=== PATIENT | female | born 1990 | race African-American/Black ===

== ENCOUNTER 2020-04-27 05:14 | Inpatient (IN) | payer BC, MEDICAID, SELFPAY ==
[2020-04-27] VITALS (18 sets, daily range): BP systolic 104–137; BP diastolic 43–111; PULSE 69–155; RESP 13–16; TEMP 36.3–36.8; O2SAT 100; BMI 28.5
--- NOTE | 2020-04-27 05:14 | LDADM ---
This patient, Mauricio Killian, was admitted to Labor/Delivery/Recovery 107 on 04/27/20 at 05:14. Plans for labor, pain management and were discussed with patient. Patient/family oriented to hospital policies and general routines including ID bracelet, bed and alarms, visiting hours, pain management, procedures, bathroom and other care routines, personal items, smoking policy, room service/diet and guest tray routines, infant security routines, and visiting hours. Patient/Family are encouraged to report perceived risks to care and to ask questions if they do not understand what they are told or what they should do. See OBIX for further documentation.
[2020-04-27] MEDS: LACTATED RINGERS 1,000 ML 125 ML IV CONT (05:46)
[2020-04-27 05:53] LABS: Basophils Percent Auto 0.3 % (0.2-1.2); Eosinophils Absolute Auto 0.1 K/mm3 (0-0.3); Eosinophils Percent Auto 0.9 % (0-4.4); Hematocrit 29.1 % (37.0-47.0); Immature Granulocyte Absolute 0.02 K/mm3 (0.00-0.031); Immature Granulocyte Percent A 0.3 % (0-0.5); Immature Platelet Fraction Pct 5.6 % (0.9-11.2); Lymphocytes Absolute Auto 1.34 K/mm3 (0.9-3.2); Lymphocytes Percent Auto 23.4 % (18.3-44.2); Mean Corpuscular HGB Conc 27.5 g/dl (32-36); Mean Corpuscular Hemoglobin 19.3 pg (26-34); Mean Corpuscular Volume 70.1 fl (80-100); Monocytes Absolute Auto 0.6 K/mm3 (0.1-0.6); Monocytes Percent Auto 11.2 % (2.6-8.5); Neutrophils Absolute Auto 3.7 K/mm3 (1.3-6.7); Neutrophils Percent Auto 63.9 % (45.5-73.1); Nucleated Red Blood Cells Absolute Auto 0.1 K/mm3 (0.0-0.012); Nucleated Red Blood Cells Perc 0.9 % (0.0-0.2); Platelet Count Result 212 k/mm3 (150-375); Red Blood Count 4.15 M/mm3 (4.2-5.4); Red Cell Distribution Width 20.6 % (11.5-14.5); White Blood Count 5.7 K/mm3 (4.5-10.0)
[2020-04-27 06:04] LABS: Hypochromasia 1+ (NORMAL); Platelet Estimate Adequate (Adequate)
[2020-04-27] MEDS: OXYTOCIN 30 UNITS/NS 500 ML 30 UNITS/500 ML BAG 999 UNITS IV CONT (06:38)
[2020-04-27 06:56] LABS: HIV 1/2 Ab P24 Ag Result Negative (Negative)
--- NOTE | 2020-04-27 06:56 | PM.IMHP ---
H&P: HPI History of Present Illness Chief complaint: Contractions Narrative: Mauricio Killian is a 29 yo @ 39.5 who presented with pelvic pain and pressure and was found to be 8cm dilated. She reported movement, no bleeding or leakage of fluid. complicated by: - h/o delivery x2 - h/o pre-eclampsia - h/o varicosities - limited care (two visits w/ Dr. Munoz) - Anemia Review of Systems Constitutional: Constitutional: Denies body ache(s) and Denies chills Eyes: Eyes: Denies blurry vision Cardiovascular: Cardiovascular: Denies chest pain and Denies palpitations Respiratory: Respiratory: Denies cough and Denies dyspnea Gastrointestinal: Gastrointestinal: Denies nausea and Denies vomiting Genitourinary: Genitourinary: Reports pelvic pain Musculoskeletal: Musculoskeletal: Reports back pain Neurologic: Denies headache(s) Psychiatric: Psychiatric: Denies anxiety [facility] Family History Family History Other Unknown family medical history Social History Social History Substance use: never Spiritual care concerns: No Meds Home Medications and Allergies Home Medications Medication Instructions Recorded Confirmed Type PNV cmb#95-ferrous fumarate-FA 1 tablet PO DAILY 04/26/20 04/26/20 History [] Allergies Allergy/AdvReac Type Severity Reaction Status Date / Time No Known Allergies Allergy Verified 04/26/20 14:37 Vital Signs Vital Signs - 24 hr 04/27/20 05:49 04/27/20 06:01 04/27/20 06:17 Pulse Rate 107 H 99 93 Blood Pressure 120/76 126/87 107/60 04/27/20 06:31 04/27/20 06:46 Pulse Rate 117 H 110 H Blood Pressure 122/73 121/50 L Exam Const: General: in distress (with contractions) moderate Resp: Effort & Inspection: normal respiratory effort Cardio: Rate: regular rate : Other: Cervix: 8/C/-1 on admission FHT: 150's/ mod jean-paul/ + accels/ no decels - cat 1 [place]: ctx's q 2-3min membranes: AROM, clear @ 0611 Skin: General skin exam: normal color Extrem: General: normal to inspection Psych: Mental Status: mental status grossly normal H&P: Results Labs Labs: Short CBC 04/27/20 Range/Units 05:42 WBC 5.7 (4.5-10.0) K/mm3 Hgb 8.0 L (12.0-15.0) g/dL Hct 29.1 L (37.0-47.0) % Plt Count 212 (150-375) k/mm3 Assessment and Plan Assessment and plan (1) : Qualifiers: Weeks of gestation: 39 weeks Qualified Code(s): Z3A.39 - 39 weeks gestation of Code(s): Z34.90 - Encounter for supervision of normal , unspecified, unspecified trimester Status: Acute Additional Plan - Admit to labor and delivery - GBS negative - heart rate tracing category 1 and reassuring - AROM, clear @ 0611 - Anticipate vaginal delivery
--- NOTE | 2020-04-27 07:06 | PM.OBPRVD ---
OB - Delivery Note Procedure Delivery date: 04/27/20 Procedure: Patient presented to Labor and delivery in active labor and was found to be 8 centimeters. amniotomy was performed with clear fluid noted and with good maternal pushing effort the cervical lip was easily reduced. she delivered the head over intact perineum. the shoulders and body delivered easily without complications. the was immediately placed skin to skin. the nose and mouth were bulb suctioned and the had spontaneous cry. the umbilical cord was clamped and cut. a segment of cord was collected for gases and the remaining cord blood was collected for typing. with Pitocin running and gentle traction on the cord the placenta delivered without complications. uterine massage was performed and good tone was noted. the cervix, vagina, and perineum were examined and 2 small vaginal lacerations were noted. lidocaine was used for local anesthesia and 2 stitches using 2 0 Vicryl were used to reapproximate the tissue. good hemostasis was noted. sponge, lap, needle, and instrument counts were correct at the end procedure. mom and baby were left bonding skin to skin in the birthing suite in stable condition. Intrapartal events: None Delivery augmentation: rupture of membranes Delivery monitor: external FHT and external uterine Route of delivery: Laceration description: Vaginal - 1st Degree Delivery repair: vicryl Specimen: Yes Estimated blood loss (mL): 200 Anesthesia type: Local Disposition: floor [place] Baby Date of : 04/27/20 Time of : 06:36 Weeks of gestation at delivery: 39 Infant gender: Male Weight (pounds): 7 Weight (ounces): 10 presentation: vertex position: Right Occiput Anterior Placenta delivery description: Expressed cord vessel description: 3 Vessels score one minute: 9 score five minutes: 9
[2020-04-27] MEDS: OXYTOCIN 30 UNITS/NS 500 ML 30 UNITS/500 ML BAG 125 UNITS IV CONT (07:11)
[2020-04-27] MEDS: IBUPROFEN 600 MG TABLET PO ×3 (07:18→20:22)
[2020-04-27 08:49] LABS: Rapid Plasma Reagin Non-Reactive (NonReactive)
[2020-04-27] MEDS: POLYSACCHARIDE IRON COMPLEX 150 MG CAPSULE PO ×2 (08:58→15:51)
[2020-04-27] MEDS: MULTIVIT/MIN/PREN/FOL AC/IRON TABLET 1 TAB PO (08:58)
[2020-04-27] MEDS: WITCH HAZEL 40 PADS 1 PAD TOPICAL (09:46)
[2020-04-27] MEDS: BENZOCAINE 20% AER SPR (*SP) 56 GM CAN 1 SPRAY TOPICAL (09:46)
[2020-04-27 10:40] LABS: Amphetamine Screen Urine Negative (Negative); Barbiturate Screen Urine Negative (Negative); Benzodiazepines Screen Urine Negative (Negative); Cannabinoid Screen Urine Negative (Negative); Cocaine Screen Urine Negative (Negative); Methadone Screen Urine Negative (Negative); Opiate Screen Urine Negative (Negative); Phencyclidine Screen Urine Negative (Negative)
--- NOTE | 2020-04-27 11:25 | PC.NURSE ---
Patient transferred to post room #288 per wheelchair. Support person present. Oriented to unit, room, information board, rooming in, admission packet and security measures. Patient verbalizes understanding.
--- NOTE | 2020-04-27 12:30 | PC.NURSE ---
Mother called out for assist with feeding, reporting has not nursed since . Mother did not breastfeed other two children and would like to breastfeed this child. Reviewed feeding cues, frequencies, duration of feedings, feeding elimination flow sheet, and signs of adequate intake. Infant is sleeping showing no feeding cues. Demonstrated stimulation techniques to wake for feeding. awake and crying. Assisted with to breast. Reviewed positioning/alignment in cross cradle, holding breast in U hold and guided asymmetrical latch on. Several attempts before infant Infant was able to latch correctly. Infant latched with minimal suckling noted. Advised to stimulate to keep ifnant awake and nursing for increased intake and maintaining deep latch. 5 minutes of feeding observed, infant would nurse if stimulated. Instructed mother to call out for RN assistance if she is unable to latch for feeding or she has discomfort with nursing. Instructed feeding should be initiated three hours from start of last feeding or if feeding cues are noted before. Mother voiced understanding of information shared.
[2020-04-27] MEDS: DOCUSATE SODIUM 100 MG CAPSULE PO (15:51)
[2020-04-27] MEDS: ACETAMINOPHEN 325 MG TABLET 650 MG PO (20:22)
[2020-04-28] MEDS: IBUPROFEN 600 MG TABLET PO ×2 (02:42→09:31)
[2020-04-28] MEDS: ACETAMINOPHEN 325 MG TABLET 650 MG PO (02:42)
[2020-04-28 05:25] LABS: Hematocrit 24.7 % (37.0-47.0)
[2020-04-28 05:45] LABS: Hemoglobin 6.9 g/dL (12.0-15.0)
[2020-04-28] MEDS: DOCUSATE SODIUM 100 MG CAPSULE PO (07:42)
[2020-04-28] MEDS: POLYSACCHARIDE IRON COMPLEX 150 MG CAPSULE PO (07:42)
[2020-04-28 08:00] VITALS: BP 95/61; PULSE 75; RESP 18; TEMP 36.6
--- NOTE | 2020-04-28 09:26 | PM.OBPNVD ---
OB - PN: Subj Subjective Date/time seen: 04/28/20 09:26 Mauricio is a 29yo now [id number] who is s/p . PPD#1 Today, Mauricio reports doing well. She has some tailbone/rectal pain from delivery but reports the meds help. She is tolerating regular diet w/o n/v. She is voiding and has had a BM. She is pumping. She reports her vaginal bleeding is light. She has a h/o anemia and her blood counts came back at 6.9 today. She reports walking to the bathroom. She denies DUMONT, blurry vision, CP, SOB, palpitations, or dizziness. She does not want a blood transfusion as she feels fine. She desires her son to be circumcised. She would like to go home today. OB - PN: Obj Data Labs CBC & Chem 7: 04/28/20 05:02 Labs: Laboratory Results - last 24 hr 04/27/20 04/27/20 04/28/20 08:27 09:58 05:02 Hgb 6.9 L* Hct 24.7 L Urine Opiates Screen Negative Urine Methadone Screen Negative Ur Barbiturates Screen Negative Ur Phencyclidine Scrn Negative Ur Amphetamine Screen Negative U Benzodiazepines Scrn Negative Urine Cocaine Screen Negative U Cannabinoids Screen Negative Blood Type B Positive Antibody Screen Negative OB - PN A/P Assessment and Plan (1) Status post normal vaginal delivery: Status: Acute (2) Acute on chronic anemia: Code(s): D64.9 - Anemia, unspecified Status: Acute Plan day: 1 Plan: routine care and discharge home Comments: - Meeting all milestones - Pt noted to have acute on chronic anemia; hgb 8--> 6.9. She denies any symptoms of anemia and her vitals are stable. counseled on the importance of taking Iron BID when discharged home. Does not desire blood transfusion - Pain meds PRN; encouraged trying hemorrhoid pillow - Continue breast feeding/pumping - Pt has h/o depression and was prescribed Zoloft 50mg 1-2 wks ago but reports it made her symptoms worse. She self discontinued it. Encouraged to try weaning medication up; taking 25mg qd x1 wk, however, pt states she does not want to as she is feeling better. She reports good support at home with sister and mother. Encouraged pt to make f/u appointment in office in 2 weeks. - Circumcision performed w/o issue - Discharge home today. Return precautions discussed: bleeding/anemia, HTN, N/V/abd pain, fever, pelvic rest. Time Spent With Patient Time: Total time spent is greater than 50% in coordination of care (as documented) at patient's floor/unit and/or counseling patient: Review of Systems Constitutional: Constitutional: Denies body ache(s) and Denies chills Cardiovascular: Cardiovascular: Denies rapid heart rate Respiratory: Respiratory: Denies cough and Denies dyspnea Gastrointestinal: Gastrointestinal: Denies abdominal pain, Denies nausea and Denies vomiting Genitourinary: Genitourinary: Reports pelvic pain Neurologic: Denies headache(s) Exam Const: General: comfortable, no acute distress, alert and awake Orientation/consciousness: patient oriented x3 Chest: Breast/axilla inspection: normal inspection of the breasts Resp: Effort & Inspection: normal respiratory effort Auscultation: clear to auscultation bilaterally Cardio: Rate: regular rate GI: Auscultation: normal bowel sounds Other: non-distended, soft, appropriately tender : Other: fundus firm below umbilicus, normal lochia on pad Psych: Appearance: grossly normal Affect: normal affect Attitude: cooperative Judgement: Good judgement present (Psych)
--- NOTE | 2020-04-28 09:30 | PC.NURSE ---
Mother called out wanting assist with pumping. Instructions given on breast pump care and usage, pumping schedule, nipple care, and collection and storage of breast milk. Encouraged jjju-[id number]-steo, breast massage and manual expression to stimulate supply. Assessed patient for correct flange size, placement and draw. Patient verbalizes and demonstrates understanding of instructions.
[2020-04-28] MEDS: WITCH HAZEL 40 PADS 1 PAD TOPICAL (09:36)
[2020-04-28] MEDS: BENZOCAINE 20% AER SPR (*SP) 56 GM CAN 1 SPRAY TOPICAL (09:36)
--- NOTE | 2020-04-28 09:36 | WPDANLDPN2 ---
Anes-Prog Note L&D Date/Time: 04/28/20 09:36 Comfortable throughout: labor and delivery Neuraxial method: epidural Epidural/Spinal procedure site: clean & non-tender Neuro status: Neuro function grossly intact. Cardiovascular status: normal Respiratory status: normal Airway patency: baseline Mental status: baseline Post-Op hydration status: normal Vital Signs: Last Vital Signs Temp 36.8 C 04/27/20 21:35 Pulse 85 04/27/20 21:35 Resp 13 04/27/20 21:35 BP 106/60 04/27/20 21:35 Pulse Ox 100 04/27/20 21:35 Post-procedural complaints: none Patient feedback: Patient satisfied with anesthetic care.
--- NOTE | 2020-04-28 10:30 | PC.NURSE ---
Patient was given the opportunity to view the discharge video Mother & Baby Care, The First Two Weeks and to ask questions. Patient declined viewing the video and has been given the mother/baby guide for home reference.
--- NOTE | 2020-04-28 15:42 | PC.NURSE ---
Self care and infant discharge instructions given to mother including follow up visit date and time. Mother verbalized understanding. No questions or concerns verbalized. Sister at side. Car seat given to pt. from hospital due to pt. car seat . Pt. very complimentary of care she was given while in hospital.
[2020-04-29 11:16] VITALS: BP 107/63; PULSE 96; RESP 22; TEMP 37
--- NOTE | 2020-05-02 10:27 | PM.OBDSVD ---
DS: Admitting Diagnosis Admitting Diagnosis Admitting Diagnosis: Encounter for supervision of normal , unspecified, third trimester DS: Discharge Diagnosis Discharge Diagnosis (1) Status post normal vaginal delivery: Status: Acute (2) Acute on chronic anemia: Code(s): D64.9 - Anemia, unspecified Status: Acute OB - DS: Summary OB Procedures : None OB Procedures Intrapartum: Spontaneous Vag Delivery OB Procedures: : None Peripartum Data Infant Delivery Method: Natural Vaginal Laceration description: Vaginal - 1st Degree Procedures: normal spontaneous vaginal delivery complications: none [place] 1: Gender: Male Disposition of : home Status at Discharge Functional status at discharge: independent ambulation Overall status at discharge: patient is back to baseline Time Spent with Patient Time attestation: Total time spent providing and/or coordinating discharge services: Exam Const: General: comfortable and no acute distress Limitations: no limitations Resp: Effort & Inspection: normal respiratory effort Auscultation: clear to auscultation bilaterally Cardio: Rate: regular rate GI: Inspection: non-distended GI Palp: Yes Soft to palpation and No Firmness to palpation present (GI) Auscultation: normal bowel sounds Psych: Appearance: grossly normal Mental Status: mental status grossly normal Affect: normal affect Attitude: cooperative Judgement: Good judgement present (Psych) DS: Data Data Completed and Pending Completed studies during hospitalization: Pending at discharge 04/27/20 06:40 Surgical [PTH] Routine Discharge Plan Discharge Attending physician on discharge: Sarahy Lin Discharging Clinician: Sarahy Lin Anticipated Discharge Date/Time: 04/28/20 18:00 Patient Disposition: Home, Self-Care Activity: pelvic rest Diet: regular Discharge Instructions: Education: Mom and Baby Guide Given to: Mother Follow-Up: Call your delivering provider's office for an appointment to be seen in: 4 Weeks Mom and baby should come to the [facility] for the follow-up appointment. Appointment Date/Time: April 29, 2020 at 11:00 am What to expect at your follow-up visit: Blood Pressure Check Physical Assessment Call [phone] if you are unable to keep your appointment time. BREAST CARE: 1. Wear a snug supportive bra. 2. For engorgement discomfort: Breast Feeding: A. Apply warm moist washcloths B. Express milk as needed to relieve engorgement C. Wear loose clothing Bottle Feeding: A. May apply ice packs 3. For sore nipples: A. Identify correct latch-on B. Apply warm moist washcloths before and after nursing C. Air dry nipples after nursing D. May apply Lansinoh cream to nipples EPISIOTOMY/PERINEAL CARE: 1. Until bleeding stops, use your nico bottle after urinating 2. Change your pad frequently throughout the day 3. You may take sitz baths several times a day (fill your bathtub with warm water and soak for 20 minutes.) Do NOT bathe in the water 4. No tub baths until seen by your physician - You may shower ACTIVITY: 1. Rest as much as possible. 2. Do not exercise or lift anything heavier than your baby (such as laundry or other children.) 3. Avoid stairs or driving as much as possible. 4. Do not put anything into the vagina. No douching, tampons, or sexual activity until seen by physician. NOTIFY PHYSICIAN IF YOU HAVE ANY QUESTIONS OR IF ANY OF THE FOLLOWING SYMPTOMS OCCUR: 1. If your episiotomy becomes red, swollen, or more painful than what you have experienced in the hospital. 2. If your vaginal bleeding becomes foul smelling. 3. If your vaginal bleeding becomes more heavy than a period or if your bleeding changes from pink to bright red. However, you may pass an occasional walnu
== END 2020-04-28 16:09 | disposition home or self-care (01) | DRG 807 ==
LOC: ANHLDR 05:54 → ANHOB2 04-28 08:52 → ANHLDR 04-29 13:32 → ANHOB2 04-29 13:32
PROVIDERS: Admitting Provider Obstetrics & Gynecology; Visit Provider Obstetrics & Gynecology
DX: O99.02 Anemia complicating childbirth (principal); Z37.0 Single live birth; Z3A.39 39 weeks gestation of pregnancy; D64.9 Anemia, unspecified; O70.0 First degree perineal laceration during delivery
CPT/HCPCS: 36415; 80307; 85014; 85018; 85025; 85055; 86592; 86703; 86850; 86900; 86901; 88307; A9270; G0432; J2590; J2795; J7120

== ENCOUNTER 2020-05-05 00:57 | Inpatient (IN) | payer BC, MEDICAID, SELFPAY ==
[2020-05-05] VITALS (57 sets, daily range): BP systolic 111–205; BP diastolic 73–108; PULSE 78–102; RESP 14–18; TEMP 36.3–37.3; O2SAT 96–100
[2020-05-05] MEDS: KETOROLAC 30 MG/ML VIAL (*BKC) IV PUSH (01:26)
[2020-05-05] MEDS: SODIUM CHLORIDE 0.9% IV 1,000 ML 999 ML IV CONT (01:26)
[2020-05-05 01:35] LABS: Basophils Percent Auto 0.6 % (0.2-1.2); Eosinophils Absolute Auto 0.1 K/mm3 (0-0.3); Eosinophils Percent Auto 1.8 % (0-4.4); Hematocrit 34.1 % (37.0-47.0); Hemoglobin 9.1 g/dL (12.0-15.0); Immature Granulocyte Absolute 0.02 K/mm3 (0.00-0.031); Immature Granulocyte Percent A 0.4 % (0-0.5); Lymphocytes Absolute Auto 1.47 K/mm3 (0.9-3.2); Lymphocytes Percent Auto 29.6 % (18.3-44.2); Mean Corpuscular HGB Conc 26.7 g/dl (32-36); Mean Corpuscular Hemoglobin 19.6 pg (26-34); Mean Corpuscular Volume 73.5 fl (80-100); Mean Platelet Volume 8.8 fl (7.4-10.4); Monocytes Absolute Auto 0.6 K/mm3 (0.1-0.6); Monocytes Percent Auto 12.5 % (2.6-8.5); Neutrophils Absolute Auto 2.7 K/mm3 (1.3-6.7); Neutrophils Percent Auto 55.1 % (45.5-73.1); Platelet Count Result 231 k/mm3 (150-375); Red Blood Count 4.64 M/mm3 (4.2-5.4); Red Cell Distribution Width 23.3 % (11.5-14.5)
[2020-05-05 01:41] LABS: Platelet Estimate Adequate (Adequate)
[2020-05-05 01:42] LABS: Anisocytosis 1+ (NORMAL); Hypochromasia 1+ (NORMAL)
[2020-05-05 01:44] LABS: Poikilocytosis 1+ (NORMAL)
[2020-05-05 01:49] LABS: Alanine Aminotransferase 22 U/L (4-35); Alkaline Phosphatase 170 U/L (38-126); Aspartate Amino Transferase 29 U/L (14-36); Bilirubin,Total 0.3 mg/dL (0.2-1.3); Blood Urea Nitrogen 12 mg/dL (7-17); Calcium 9.3 mg/dL (8.4-10.2); Carbon Dioxide 22 mmol/L (22-30); Chloride 107 mmol/L (98-107); Estimated Glomerular Filt Rate > 60; Glucose 102 mg/dL (65-105); Potassium 3.5 mmol/L (3.4-5.0); Sodium 134 mmol/L (137-145)
--- NOTE | 2020-05-05 02:19 | ED.HA ---
HPI - Headache General Chief Complaint: Headache Stated Complaint: headache, 8 days post- Time Seen by Provider: 05/05/20 01:13 History of Present Illness HPI Narrative: Patient is a 29-year-old female who presents the ER with headache. Patient is 8 days status post vaginal delivery of a male . Patient has history of preeclampsia in previous . Reports she has been having headache over the last 3 days. She has been to her OB office for the last 2 days to be evaluated for this headache. It is felt to be a tension headache and she has been prescribed Tylenol take every 6 hours. She reports this is not helping. Headache is located in the posterior aspect of her head and radiates to her shoulders and then also around to the temples bilaterally. She has no changes in vision or hearing. She reports increased stress at home with the new baby as well as having other children. She is without any fevers or chills or sweats. She has no malodorous vaginal discharge and her lochia has decreased significantly. She is without abdominal pain/nausea/vomiting. Related Data Allergies Allergy/AdvReac Type Severity Reaction Status Date / Time No Known Allergies Allergy Verified 05/05/20 00:58 Review of Systems Review of Systems: All systems reviewed & are unremarkable except as noted in HPI and below Constitutional: Constitutional: Denies chills, Denies fever(s) and Denies weakness Eyes: Eyes: Denies change in vision and Denies photophobia ENT: Denies nasal congestion and Denies sore throat Cardiovascular: Cardiovascular: Denies chest pain, Denies rapid heart rate and Denies radiating jaw, neck or arm pain Respiratory: Respiratory: Denies cough and Denies dyspnea Gastrointestinal: Gastrointestinal: Denies abdominal pain, Denies nausea and Denies vomiting Genitourinary: Genitourinary: Denies abnormal vaginal bleeding, Denies nocturia, Denies dysuria and Denies vaginal discharge Neurologic: Denies dizziness, Denies syncope, Reports headache(s), Denies focal weakness and Denies numbness PMFSH Past Medical History Medical History (Updated 05/05/20 @ 02:48 by Sp Bills MD) Preeclampsia Surgical History Surgical History (Updated 05/05/20 @ 02:26 by Sp Bills MD) No history of previous surgery Social History Social History Substance use: never Gender identity (if verbalized by the patient): Female Spiritual care concerns: No Exam Narrative: Exam Narrative: GENERAL: Well-appearing, well-nourished, and in no acute distress. HEAD: Normocephalic, atraumatic. EYES: PERRLA and EOMI. ENT: Mucous membranes moist. CHEST: Clear to auscultation. No respiratory distress. HEART: Regular rate and rhythm. Normal peripheral pulses. ABDOMEN: Soft, nontender, nondistended. EXTREMITIES: Normal range of motion. No edema. SKIN: Warm, dry, no rash. NEURO: No focal deficits. Alert and oriented x3. Course Course Emergency Course: Patient informed of results. Blood pressures going up in the 200s systolic and confirmed with manual blood pressure. Discussed with Dr. Hull. Patient received 6 g magnesium bolus and then start a drip at 2 g an hour. She also receive labetalol 20 mg IV push. She will be admitted to the OB unit for mag checks. Patient also received morphine 4 mg for pain control as Toradol did not improve her discomfort. Vital Signs Vital signs: Vital Signs Temperature 97.3 F L 05/05/20 01:05 Pulse Rate 78 05/05/20 01:05 Respiratory Rate 18 05/05/20 01:05 Blood Pressure 164/73 H 05/05/20 01:05 Pulse Oximetry 98 05/05/20 01:05 Temperature 97.8 F 05/05/20 03:35 Pulse Rate 83 05/05/20 06:01 Respiratory Rate 15 05/05/20 04:05 Blood Pressure 129/83 05/05/20 06:01 Pulse Oximetry 100 05/05/20 04:06 MDM - Headache Lab Data Result diagrams: 05/05/20 01:29 05/05/20 01:29
[2020-05-05 02:31] LABS: Add Urine Microscopic? YES; Appearance Urine Clear (Clear); Bacteria Urine Trace /hpf; Bilirubin Urine Negative (Negative); Blood Urine 3+ (Negative); Color Urine Light Yellow (Yellow); Glucose Urine UA Negative (Negative); Ketones Urine Negative (Negative); Leukocyte Esterase Ur 1+ LEU/UL (Negative); Mucus Urine Rare /lpf; Nitrate Urine Negative (Negative); Protein Urine 1+ mg/dL (Negative); RBC Urine >75 /hpf (0-2); Specific Grav Ur 1.011 (1.001-1.035); Squamous Epithelial Cell Urine Occasional /hpf (Few); Urobilinogen Urine Negative mg/dL (<2.0)
[2020-05-05] MEDS: LABETALOL HCL INJ 100 MG/20 ML VIAL 20 MG IV PUSH (02:38)
[2020-05-05] MEDS: MORPHINE SULFATE 4 MG/ML INJ IV PUSH (02:38)
[2020-05-05] MEDS: MAGNESIUM SULF 6 GM/WATER150ML 6 GM/150 ML BAG IVPB (02:51)
[2020-05-05] MEDS: MAGNESIUM SULF 20GM/WATER500ML 500 ML 50 MG IV CONT ×3 (04:05→21:02)
[2020-05-05] MEDS: LACTATED RINGERS 1,000 ML 75 ML IV CONT ×2 (04:14→17:36)
--- NOTE | 2020-05-05 04:27 | PC.NURSE ---
Pt stated she was diagnosed with preeclampsia after delivering last baby in 2018. Stated she was kept in hospital for 24 hours on mag and given procardia for BP. Pt stated she did not go home on BP home medication after hospital stay. Pt stated she has not had any BP issues since then, or during recent .
[2020-05-05] MEDS: NIFEdipine 30 MG TAB.ER.24 PO (08:52)
[2020-05-05] MEDS: MULTIVIT/MIN/PREN/FOL AC/IRON TABLET 1 TAB PO (08:52)
[2020-05-05] MEDS: POLYSACCHARIDE IRON COMPLEX 150 MG CAPSULE PO ×2 (09:36→18:11)
--- NOTE | 2020-05-05 11:35 | PM.IMHP ---
H&P: HPI History of Present Illness Chief complaint: preeclampsia, sever range bp Narrative: Mauricio Killian is a 29 year old female s/p on 04/27. Presented to the ER overnight with complaints of headaches. BPs were noted to be in the severe range reaching 200s SBP and 100s DBP. Was given IV labetalol which brought her BPs down to non severe range. Today she states she is feeling better. Headaches are relieved with pain medications. Denies blurry vision, spots in her vision. Review of Systems Eyes: Eyes: Reports as per HPI Cardiovascular: Cardiovascular: Reports no additional cardiovascular complaints Respiratory: Respiratory: Reports no additional respiratory complaints Gastrointestinal: Gastrointestinal: Reports no additional gastrointestinal complaints Genitourinary: Genitourinary: Reports no additional female genitourinary complaints Musculoskeletal: Musculoskeletal: Reports no additional musculoskeletal complaints Neurologic: Reports as per HPI Psychiatric: Psychiatric: Reports no additional psychiatric complaints PMF Past Medical History Medical History Preeclampsia Surgical History Surgical History No history of previous surgery Family History Family History Other Unknown family medical history Social History Social History Substance use: never Gender identity (if verbalized by the patient): Female Spiritual care concerns: No Meds Home Medications and Allergies Home Medications Medication Instructions Recorded Confirmed Type PNV cmb#95-ferrous fumarate-FA 1 tablet PO BIDWM 30 Days #60 04/28/20 05/05/20 Rx [] tablet docusate sodium 100 mg PO BID 30 Days #60 cap 04/28/20 05/05/20 Rx ibuprofen 600 mg PO Q6H PRN 10 Days #40 04/28/20 05/05/20 Rx tablet Allergies Allergy/AdvReac Type Severity Reaction Status Date / Time No Known Allergies Allergy Verified 05/05/20 00:58 Vital Signs Vital Signs - 24 hr 05/05/20 01:05 05/05/20 02:14 05/05/20 02:26 Temperature 36.3 C L Pulse Rate 78 88 84 Respiratory Rate 18 18 18 Blood Pressure 164/73 H 205/108 H 200/108 H Pulse Oximetry 98 100 98 05/05/20 03:06 05/05/20 03:31 05/05/20 03:35 Temperature 36.6 C Pulse Rate 84 81 Respiratory Rate 18 14 Blood Pressure 178/100 H 162/90 H Pulse Oximetry 98 05/05/20 03:46 05/05/20 04:01 05/05/20 04:05 Temperature Pulse Rate 88 79 Respiratory Rate 15 Blood Pressure 138/85 158/89 H Pulse Oximetry 100 05/05/20 04:06 05/05/20 04:16 05/05/20 05:01 Temperature Pulse Rate 82 83 Respiratory Rate Blood Pressure 152/82 H 135/79 Pulse Oximetry 100 05/05/20 06:01 05/05/20 07:01 05/05/20 07:09 Temperature Pulse Rate 83 82 Respiratory Rate Blood Pressure 129/83 143/93 H Pulse Oximetry 100 05/05/20 07:12 05/05/20 07:14 05/05/20 07:19 Temperature Pulse Rate Respiratory Rate 17 Blood Pressure Pulse Oximetry 100 100 100 05/05/20 07:24 05/05/20 07:29 05/05/20 07:34 Temperature Pulse Rate Respiratory Rate Blood Pressure Pulse Oximetry 100 100 100 05/05/20 07:39 05/05/20 07:44 05/05/20 07:49 Temperature Pulse Rate Respiratory Rate Blood Pressure Pulse Oximetry 100 100 100 05/05/20 07:54 05/05/20 07:59 05/05/20 08:01 Temperature Pulse Rate 82 Respiratory Rate Blood Pressure 140/84 Pulse Oximetry 100 100 05/05/20 08:04 05/05/20 08:09 05/05/20 08:14 Temperature Pulse Rate Respiratory Rate Blood Pressure Pulse Oximetry 100 100 100 05/05/20 08:16 05/05/20 08:21 05/05/20 08:26 Temperature Pulse Rate Respiratory Rate Blood Pressure Pulse Oximetry 100 100 100 05/05/20 08:31 05/05/20 08:36 05/05/20 08:44 Temperature
[2020-05-06] VITALS (8 sets, daily range): BP systolic 125–135; BP diastolic 90–98; PULSE 90–104; RESP 14–16; TEMP 36.6–37
[2020-05-06] MEDS: POLYSACCHARIDE IRON COMPLEX 150 MG CAPSULE PO (08:52)
[2020-05-06] MEDS: NIFEdipine 30 MG TAB.ER.24 PO (08:52)
[2020-05-06] MEDS: MULTIVIT/MIN/PREN/FOL AC/IRON TABLET 1 TAB PO (08:52)
--- NOTE | 2020-06-06 14:43 | P.DS_ITS ---
DS: Admitting Diagnosis Admitting Diagnosis Admitting Diagnosis: Severe pre-eclampsia, complicating the puerperium DS: Discharge Diagnosis Discharge Diagnosis (1) Hypertension in , preeclampsia, severe, delivered/: Code(s): O14.15 - Severe pre-eclampsia, complicating the puerperium Status: Acute DS: Summary Hospital Course Hospital Course: Admitted for preeclampsia with severe features. Placed on MgSO4 and procardia. Patient stable for discharge home with outpatient follow up. Time Spent with Patient Time attestation: Total time spent providing and/or coordinating discharge services: Exam Const: General: comfortable and no acute distress Resp: Effort & Inspection: normal respiratory effort Cardio: Rate: regular rate Skin: General skin exam: normal color Psych: Mental Status: mental status grossly normal Discharge Plan Discharge Attending physician on discharge: Jordan uHll Consulting providers: Justin Neumann Discharging Clinician: Jordan Hull Patient Disposition: Home, Self-Care Activity: as tolerated Diet: regular Patient Instructions: Preeclampsia and Eclampsia After Delivery (GEN) Stand Alone Forms: General Discharge Information Follow-up/Referrals: Jordan Hull DO [Physician] - Discharge Medications: New nifedipine 30 mg tablet extended release 30 mg PO DAILY Qty: 60 RF: 0 nifedipine [Procardia XL] 30 mg Tablet Extended Release 24hr 30 mg PO QAM Qty: 0 RF: 0 acetaminophen [Mapap (acetaminophen)] 325 mg Tablet 650 mg PO Q4H PRN (Reason: Mild Pain (1-3) Or Fever) RF: 0 polysaccharide iron complex 150 mg iron Capsule 150 mg PO BIDWM RF: 0 KPN Tablet 1 tab PO DAILY RF: 0 ondansetron HCl (PF) 4 mg/2 mL Solution 4 mg IVPUSH Q4H PRN (Reason: Nausea) RF: 0 Continued ibuprofen 600 mg Tablet 600 mg PO Q6H PRN (Reason: Cramping) 10 Days Qty: 40 RF: 0 PNV cmb#[id number] fumarate-FA [] 28 mg iron- 800 mcg Tablet 1 tablet PO BIDWM 30 Days Qty: 60 RF: 2 Discontinued docusate sodium 100 mg Capsule 100 mg PO BID 30 Days Qty: 60 RF: 2 Date of admission: 05/05/20 02:43 Primary Care Provider: PHYSICIAN,CHUCK WAGON COOK Admitting Provider: Jordan Hull Discharge Date/Time: 05/06/20 10:22 Attending physician on admission: Jordan Hull Condition: Stable
== END 2020-05-06 10:22 | disposition home or self-care (01) | DRG 776 ==
LOC: ANHED 02:48 → ANHOBPP 03:02
PROVIDERS: Admitting Provider Obstetrics & Gynecology; Emergency Provider Emergency Medicine; Visit Provider Obstetrics & Gynecology
DX: O14.15 Severe pre-eclampsia, complicating the puerperium (principal)
CPT/HCPCS: 36415; 80048; 80076; 81001; 85025; 87086; 87088; 96361; 96374; 96375; 99285; A9270; J1885; J2270; J3475; J7030; J7120

== ENCOUNTER 2025-05-11 15:41 | Outpatient (CLI) | payer OTHER, MEDICAID, SELFPAY ==
--- OUTSIDE RECORDS SUMMARY | 2025-05-11 15:44 | XMS_ITS | Clinical Summary ---
Author Organization [facility] Address [address] [place] [address] Care Team Providers Care Bank Consultant Name Role Phone No, Physician Primary Care Provider [phone] Allergies No known active allergies Medications PNV #[id number] acid-dha 35 mg iron-5 mg iron-1 mg capsule Take by mouth daily Active nitrofurantoin monohydrate (MACROBID) 100 mg capsule Take 1 capsule (100 mg total) by mouth 2 (two) times a day Active Active Problems Problem Noted Date Diagnosed Date Supervision of other normal , antepartu m 02/19/2025 Overview (02/19/2025): NOTES: Partner name: 1st Trimester: [] Dating Criteria: [] Labs: Lab Results Component Value Date RUBELIGG Reactive 11/13/2022 [id number] Nonreactive 11/13/2022 HEPBSAG Nonreactive 11/13/2022 HEPCAB Nonreactive 11/13/2022 LABRPR Nonreactive 11/13/2022 CTRACHOMATIS Not detected 09/06/2019 [id number] Not detected 09/06/2019 MICROBIOLOGY 12/25/2022 Final Report: Less than 100,000 colonies/mL (clinically insignificant growth based on current clinical standards) ORGANISM (CLINICALLY INSIGNIFICANT GROWTH 12/25/2022 ABORH B Positive 11/13/2022 IDCOOMB Negative ABSC 11/13/2022 [] NIPT: [] Carrier screening: [] ASA at 12 weeks: 2nd - 3rd Trimester: [] Anatomy ultrasound: [] Placenta Location: previa or no previa [] echo (if monochorionic, IVF, hx CHD): [] 1h GTT: No results found for: [id number] [] CBC: [] Flu vaccine: [] Rhogam (28 wks if Rh neg): [] Tdap vaccine: [] 32 wk ultrasound: [] RSV vaccine (32-36wks): [] GBS (36 wks): No results found for: GBS No results found for: STREPBDNA Counseling: [] Refinery Technician: [] Circumcision: [] Method of feeding: [] Method of contraception: [] Epidural: [] Route of Delivery: [] Timing of Delivery: [] Childbirth classes 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 Resolved Problems Problem Noted Date Diagnosed Date Resolved Date Supervision of other normal , antepartum 11/27/2022 02/19/2025 Encounters Date Type Department Care Team Description 03/25/2025 Telephone [facility] [address] [place] [phone] Marli Cuba RN No Show NOB 02/17/2025 Telephone [facility] [address] [place] [phone] Marli Ho MD New patient NOB from Last 3 Months Immunizations Immunization Administration Dates Next Due Hep A, Adult 12/22/2021 Influenza, Quadrivalent, Spl it, Preservative Free, Intramuscular 09/09/2023 Tdap 12/22/2021,02/12/2020 Surgical History Surgery Date Site/Laterality Comments INCISION AND DRAINAGE 11/11/2013 - 11/10/2014 Bartholin cyst Medical History Medical History Date Comments Anemia Preeclampsia in period Abnormal Pap smear of cervix HSV-2 infection History of chlamydia Bartholin gland cyst Family History Medical History Relation Name Comments No Known Problems Brother No Known Problems Father Lung cancer Half-Brother 1 No Known Problems Half-Brother 2 No Known Problems Half-Brother 3 No Known Problems Half-Brother 4 No Known Problems Mother No Known Problems Sister Breast cancer Neg Hx Colon cancer Neg Hx Ovarian cancer Neg Hx Uterine cancer Neg Hx Relation Name Status Comments Brother Alive Father Half-Brother 1 Half-Brother 2 Alive Half-Brother 3 Alive Half-Brother 4 Alive Mother Alive Sister Alive Social History Tobacco Use Types Packs/Day Years Used Date Smoking Tobacco: Never Passive Smoke Exposure: Never Smokeless Tobacco: Never Tobacco Cessation:Counseling Given: No Humiliation, Afraid, Rape, and Kick questionnair e Answer Date Recorded Within the last year, have y ou been afraid of your partner or ex-partner? No 02/19/2025 Within the last year, have y ou been humiliated or emotionally abused in other ways by your partner or ex-partner? No Within the last year, have y ou been kicked, hit, slapped, or otherwise physically hurt by your partner or ex-partner? No 02/19/2025 Within the last year, have y ou been raped or forced to have any kind of sexual activity by your partner or ex-partner? 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 file Not on file Not on file Obstetrics History Para Term AB IAB SAB Ectopic Multiple Livin g Live Births 5 4 3 1 0 0 0 0 0 4 4 Date Outcome GA Total Labor Labor/2nd/3rd Weight Sex Type Anes PTL Gaby A1 A5 Name Clin 014 36w 2d 2.655 kg (5 lb 13.7 oz) F Vag-S pont Epidur al Y Livin g Complications:Premature Rupt ure of Membranes Delivery Location:[place] 018 Term 37w 2d 3.285 kg (7 lb 3.9 oz) M Vag-S pont Epidur al Y Livin g Complications:Premature Rupt ure of Membranes Delivery Location:[place] 020 Term 39w 5d 3.175 kg (7 lb) M Vag-S pont None N Livin g Complications:None Delivery Location:[place] 023 Term 39w 0d 3.658 kg (8 lb 1 oz) M Vag-S pont Livin g 8 9 Delivery Location:[facility] Current Comments G1- 2014 @ 36wk PROM Li ncoln - PP PreE G2- 2017 @ 37wks Jacob- PP PreE G3- 2019 aden- PP PreE G4- 2022 Lavon - PP PreE Summary Episode Dates Number of Fetuses Estimated Date of Delivery 02/17/2025 - Present (05/11/2025) Unknown Dating Summary Based On [place] Diff Last Menstrual Period on 01/20/2025 10/27/2025 Vitals Pregravid Weight Height TWG (As of 05/11/2025) Pregrav id BMI 71.7 kg (158 lb) Last Filed Vital Signs Vital Sign Reading Time Taken Comments Blood Pressure 100/58 03/12/2023 8:55 AM CDT Pulse 101 09/06/2019 7:45 PM CDT Temperature 37 C (98.6 F) 09/06/2019 4:02 PM CDT Respiratory Rate 16 09/06/2019 4:02 PM CDT Oxygen Saturation 100% 09/06/2019 7:45 PM CDT Inhaled Oxygen Concentration - - Weight 68.9 kg (152 lb) 03/12/2023 8:55 AM CDT Height 160 cm (5' 3) 03/12/2023 8:55 AM CDT Body Mass Index 26.93 03/12/2023 8:55 AM CDT Plan of Treatment Health Maintenance Due Date Last Done Comments Cervical Cancer Screening 1992 Depression Screening 1992 Varicella Vaccines (1 of 2 - 13+ 2-dose series) 2005 Hepatitis B Screening 2010 Regular Well Visit/Exam 18-64 2010 Covid-19 Vaccine (3 - 2023-2 5 season) 2024 03/23/2021, 02/23/2021 Influenza Vaccine (#1) 2025 , 08/23/2022, 09/11/2014 DTaP/Tdap/Td Vaccine (3 - Td or Tdap) 12/22/2031 12/22/2021, 02/12/2020 Hepatitis C Screening Completed 11/13/2022 HPV Vaccines Aged Out No longer eligi ble based on patient's age to complete this topic Pneumococcal vaccine <65 Aged Out No longer eligible based on patient's age to complete this topic Procedures Procedure Name Priority Date/Time Associated Diagnosis Comments HEPATITIS C ANTIBODY Routine 11/13/2022 4:13 PM [facility] Positive test from Last 3 Months or Most Recently Relevant to Health Maintenance Results * Hepatitis C antibody (11/13/2022 4:13 PM [employer] [facility]) Hep C Ab Nonreactive Nonreactive JEAN MEZA Comment: Interpretive Data Nonreactive: Antibodies to HCV not detected. Does NOT exclude the possibility of recent exposure to HCV. Equivocal: Equivocal for HCV antibodies. Supplemental molecular testing will be automatically performed to determine infection status in accordance with current CDC screening recommendations. Reactive: Positive for HCV antibodies. This may represent current or past HCV infection. Supplemental molecular testing will be automatically performed to determine current infection status in accordance with current CDC screening recommendations. Interpretive data was last revised on 2020. Blood 11/13/2022 4:13 PM [employer] [facility] [facility] 11/13/2022 6:39 PM [employer] [facility] us Petros Hutchinson MD LAB MICROBIOLOGY - GENERAL ORDERABLES Final Result JEAN MEZA [id number] [facility] [place] [id number] from Last 3 Months or Most Recently Relevant to Health Maintenance Insurance [employer] Address: [facility] [address] [place] [address] [employer] [employer] Address: [facility] [id number] [place] [address] [employer] Address: [facility] [address] [place] [phone] Care Teams Bank Consultant Relationship Specialty Start Date End Date No, Physician PCP - General 02/27/17
--- OUTSIDE RECORDS SUMMARY | 2025-05-11 15:44 | XMS_ITS | Data Portability ---
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 Plan of Treatment Reminders Order Date Submit Date Provider Last Modified By Organization Details Last Modified Time Details Appointments None recorded. Lab test, urine 2024 025 [email or web address] [facility], [address] [place], [address], 5 15:25:01 unlisted lab - sureswab(R) advanced vaginitis plus, tma 2024 025 [facility], [address] [place], [address], 5 10:08:23 urinalysis, dipstick 2024 025 [email or web address] [facility], [address] [place], [address], 5 14:50:22 culture, urine 2024 025 [employer] [facility], [address] [place], [address], 5 17:49:56 test, urine 2024 025 [email or web address] [facility], [address] [place], [address], 5 14:50:22 bacterial vaginosis + vaginitis panel, vaginal 2024 025 [facility], [address] [place], [address], 5 13:18:42 STI panel 2024 025 [facility], [address] [place], [address], 5 13:45:42 bacterial vaginosis + vaginitis panel, vaginal 2023 024 [facility], [address] [place], [address], 4 09:14:34 Referral None recorded. Procedures None recorded. Surgeries None recorded. Imaging US, transvagina l 2024 025 TRAVIS Not available 19:17:49 Medication Orders ondansetron 8 mg disintegrat ing tablet 2024 025 [facility][id number], [address], [place], [place], [id number], 5 15:31:45 pyridoxine (vitamin B6) 25 mg tablet 2024 025 [facility] #[id number], [address], [place], [place], [id number], 5 15:31:38 Unisom (doxylamine ) 25 mg tablet 2024 025 [facility] #[id number], [address], [place], [place], [id number], 15:31:39 Macrobid 100 mg capsule 2024 025 [facility]ba [facility] #[id number], [address], [place], [place], [id number], 14:44:32 28 mg iron-800 mcg tablet 2024 025 TRAVIS [facility] #[id number], [address], [place], [place], [id number], 11:19:36 Patient TargetsNo targets recorded. Patient Instructions Encounter Date Encounter Id Patient Instructions Last Modified By Organization Details Last Modified Time 03/11/2025 [id number] extreme nausea and vomiting in : care instructions bnotzke Not available 03/11/2025 15:31:33 [facility] OB Booklet bnotzke Not available 03/11/2025 15:25:01 Reason for Referral None Reported. Results Created Date Observation Date Name Description Value Unit Range Abnormal Flag Note LastModifiedBy Organization Detail LastModifiedTime 10/30/20 24 11/02/2024 VAGIN ITIS PLUS STD PANEL bacterial vaginosis BV neg negati ve normal Not [place], [address], 11/03/2024 09:14:34 10/30/20 24 11/02/2024 VAGIN ITIS PLUS STD PANEL john species C. spp neg negati ve normal Not [place], [address], 11/03/2024 09:14:34 10/30/20 24 11/02/2024 VAGIN ITIS PLUS STD PANEL john glabrata C. gla neg negati ve normal [place], [address], 11/03/2024 09:14:34 10/30/20 24 11/02/2024 VAGIN ITIS PLUS STD PANEL trichomonas vaginalis CV/TV TRICH neg negati ve normal Not [place], [address], 11/03/2024 09:14:34 10/30/20 24 11/02/2024 VAGIN ITIS PLUS STD PANEL chlamydia trachomatis CT neg negati ve normal This repor t is inten ded for us in clini berta monit [facility]ing [facility]. It is not inten ded for use in medic al-le gal appli catio n. Not Available [facility] [address] [place], [address], 11/03/2024 09:14:34 10/30/20 24 11/02/2024 VAGIN ITIS PLUS STD PANEL neisseria gonorrhoeae GC neg negati ve normal This repor t is inten ded for us in clini berta monit oring and manag ement of [facility]. It is not inten ded for use in medic al-le gal appli catio n. Not Available [place], [address], 11/03/2024 09:14:34 12/31/19 25 01/05/2025 STI PANEL trichomonas vaginalis TRICH neg negati ve normal Not Available [facility] [address] [place], [address], 01/05/2025 13:45:42 12/31/19 25 01/05/2025 STI PANEL chlamydia trachomatis CT neg negati ve normal This repor t is inten ded for us in clini berta monit oring and manag ement of [facility]. It is not inten ded for use in medic al-le gal appli catio n. Not Available [facility] [address] [place], [address], 01/05/2025 13:45:42 12/31/19 25 01/05/2025 STI PANEL neisseria gonorrhoeae GC neg negati ve normal This repor t is inten ded for us in clini berta monit oring [facility]. It is not inten ded for use in medic al-le gal appli catio n. Not Available [place] [employer] [address] [place], [address], 01/05/2025 13:45:42 02/16/20 25 02/17/2025 VAGIN ITIS PLUS STD PANEL bacterial vaginosis BV POS negati ve abnormal Not Available [address], [address], 02/17/2025 13:18:42 02/16/20 25 02/17/2025 VAGIN ITIS PLUS STD PANEL john species C. spp neg negati ve normal Not Available [address], [address], 02/17/2025 13:18:42 02/16/20 25 02/17/2025 VAGIN ITIS PLUS STD PANEL john glabrata C. gla neg negati ve normal Not Available [address], [address], 02/17/2025 13:18:42 02/16/20 25 02/17/2025 VAGIN ITIS PLUS STD PANEL trichomonas vaginalis CV/TV TRICH neg negati ve normal Not Available [address], [address], 02/17/2025 13:18:42 02/16/20 25 02/17/2025 VAGIN ITIS PLUS STD PANEL chlamydia trachomatis CT neg negati ve normal This repor t is inten ded for us in clini berta monit oring and [facility]. It is not inten ded for use in medic al-le gal appli catio n. Not Available [address], [address], 02/17/2025 13:18:42 02/16/20 25 02/17/2025 VAGIN ITIS PLUS STD PANEL neisseria gonorrhoeae GC neg negati ve normal This repor t is inten ded for us in clini berta monit oring and manag ement of [facility]. It is not inten ded for use in medic al-le gal appli catio n. Not Available [address], [address], 02/17/2025 13:18:42 02/16/20 25 02/18/2025 CULTU RE, URINE , ROUTI NE culture, urine, routine SEE NOTE abnormal CULTU RE, URINE , ROUTI NE Micro Numbe r: [id number] Test Statu s: Final Speci men Sourc e: Urine Speci men Quali ty: Adequ ate Resul t: Great er than 100,0 00 CFU/m L of Esche gabriel a coli E.col i ----- ----- ----- - INT TERRANCE AMOX/ CLAVU LANAT E I 16 AMP/S ULBAC NELSON R >=32 CEFAZ GENIE R >=64 1 CEFEP MARCEL S <=0.1 2 CEFTA ZIDIM E S <=1 CEFTR IAXON E S <=0.2 5 CIPRO FLOXA ROHIT I 0.5 GENTA MICIN S <=1 IMIPE NEM S <=0.2 5 LEVOF LOXAC IN I 1 MEROP ENEM S <=0.2 5 NITRO FURAN TOIN S <=16 PIP/T AZOBA CTAM S 16 TRIME THOPR IM/GARZA LFA R >=320 S = Susce ptibl e I = Inter media te R = Resis tant NS = Not susce ptibl e SDD = Susce ptibl e Dose Depen dent * = Not Teste d NR = Not Repor radha NN = See Thera py Comme nts THERA PY COMME NTS Note 1: For uncom plica radha UTI cause d by E. coli, K. pneum oniae or P. mirab ilis: Cefaz genie is susce ptibl e if TERRANCE <32 mcg/m L and predi cts susce ptibl e to the oral agent s cefac jos, cefdi sahara, cefpo doxim e, cefpr ozil, cefur oxime , cepha lexin and lorac arbef . Not Available [facility] [id number] [place], [address], 02/18/2025 10:58:55 02/16/20 25 02/15/2025 pregn kris test, urine HCG positi ve Not Available [address], [place], [address], 02/15/2025 14:27:22 02/16/20 25 02/15/2025 urina lysis , dipst ick Leukocytes Trace Not Available [address], [place], [address], 02/15/2025 14:25:36 02/16/20 25 02/15/2025 urina lysis , dipst ick Nitrite negati ve Not Available [address], [place], [address], 02/15/2025 14:25:36 02/16/20 25 02/15/2025 urina lysis , dipst ick Protein Negati ve Not Available [address], [place], [address], 02/15/2025 14:25:36 02/16/20 25 02/15/2025 urina lysis , dipst ick pH 5.5 Not Available [address], [place], [address], 02/15/2025 14:25:36 02/16/20 25 02/15/2025 urina lysis , dipst ick Blood Large Not Available [address], [place], [address], 02/15/2025 14:25:36 02/16/20 25 02/15/2025 urina lysis , dipst ick Specific [place] 1.015 Not Available [facility] [address], [place], [address], 02/15/2025 14:25:36 02/16/20 25 02/15/2025 urina lysis , dipst ick Ketone Negati ve Not Available [address], [place], [address], 02/15/2025 14:25:36 02/16/20 25 02/15/2025 urina lysis , dipst ick Bilirubin Negati ve Not Available [address], [place], [address], 02/15/2025 14:25:36 02/16/20 25 02/15/2025 urina lysis , dipst ick Glucose Negati ve Not Available [address], [place], [address], 02/15/2025 14:25:36 02/16/20 25 02/15/2025 urina lysis , dipst ick Appearance Clear Not Available [address], [place], [address], 02/15/2025 14:25:36 02/16/20 25 02/15/2025 urina lysis , dipst ick Color Dark Yellow Not Available [address], [place], [address], 02/15/2025 14:25:36 02/24/20 25 02/25/2025 SURES WAB(R ) ADVAN ROBERT VAGIN ITIS PLUS, TMA sureswab(R) adv bacterial vaginosis (bv), tma NEGATI VE negati ve normal Not Available [address], [address], 02/25/2025 10:08:23 02/24/20 25 02/25/2025 SURES WAB(R ) ADVAN ROBERT VAGIN ITIS PLUS, TMA john species DETECT ED not detect ed abnormal Not Available [facility] [address], [address], 02/25/2025 10:08:23 02/24/20 25 02/25/2025 SURES WAB(R ) ADVAN ROBERT VAGIN ITIS PLUS, TMA john glabrata NOT DETECT ED not detect ed normal Nanda da speci es C. albic ans, C. tropi calis , C. parap chhaya is, and/o r C. dubli ni is can be detec radha, but not diffe renti ated, in the Nanda da spp. resul t. Not Available [address], [address], 02/25/2025 10:08:23 02/24/20 25 02/25/2025 SURES WAB(R ) ADVAN ROBERT VAGIN ITIS PLUS, TMA trichomonas vaginalis (TV), tma NOT DETECT ED not detect ed normal Not Available [address], [address], 02/25/2025 10:08:23 02/24/20 25 02/25/2025 SURES WAB(R ) ADVAN ROBERT VAGIN ITIS PLUS, TMA chlamydia trachomatis RNA, tma, urogenital NOT DETECT ED not detect ed normal Not Available [address], [address], 02/25/2025 10:08:23 02/24/20 25 02/25/2025 SURES WAB(R ) ADVAN ROBERT VAGIN ITIS PLUS, TMA neisseria gonorrhoeae RNA, tma, urogenital NOT DETECT ED not detect ed normal For addit ional infor lesly davis refer to https ://ed ucati on.qu ben [employer]/f aq/FA Q154 (This link is being provi ded for kirill sterling/ eric phillips only. ) Not Available [facility] [address], [address], 02/25/2025 10:08:23 03/11/20 25 03/11/2025 pregn kris test, urine HCG positi ve Not Available [facility] [address] [place], [address], 03/11/2025 15:24:50 04/12/20 25 04/13/2025 HCG, TOTAL , QUANT HCG, total, quant 712 mIU/m L <5 high Refer ence Range s are for femal es aged 18 years - Adult Nonpr egnan t or preme nopau ronald <5 Postm enopa usal <10 Value s from diffe rent assay metho ds may vary. The use of this assay to monit or or to diagn ose patie nts with cance r or any other condi tion unrel ated to pregn kris has not been valid ated by the [facility] actur er of this assay . Not Available [address], [address], 04/13/2025 10:43:52 04/22/20 25 04/23/2025 HCG, TOTAL , QUANT HCG, total, quant 77 mIU/m L <5 high Refer ence Range s are for femal es aged 18 years - Adult Nonpr egnan t or preme nopau ronald <5 Postm enopa usal <10 Value s from diffe rent assay metho ds may vary. The use of this assay to monit or or to diagn ose patie nts with cance r or any other condi tion unrel ated to pregn kris has not been valid ated by the [facility] of this assay . Not Available [address], [address], 04/23/2025 13:08:40 03/11/2003/11/2025 US, trans kaykay al No observ ation record ed. guille Christian [address], [place], [address], 03/12/2025 16:55:44 Result Notes None recorded. Problems Name Problem SNOMED Code Status Onset Date Resolution Date Notes Provider Name and Address Organization Details Recorded Time 14338076 Completed 202208/08/2023 B+/Rno nI/NRx 3 low risk male Enmanuel Goncalves null, [place] - [facility] 5 14:46:27 [id number] Completed 2022 B+/Rno nI/NRx 3 low risk male Darlin [place] null, [place] - [facility] 11:10:00 Low back pain in 897755331504 6 Active 2022 Corry Mcmahan MD [address] [place] [address], [phone], [facility] 3 16:50:48 Anemia of 09613685 Active 2022 Corry Mcmahan MD [address] [place] [address], [address], [facility] 3 12:49:02 Rubella non-immun e 688835957 Completed MMR PP Darlin Michael null, [place] - [facility] 3 11:10:00 Anemia 951229224 Completed hgb=9. 1 6-2-23 and mcv 83 and on 5-5 was 8.8 and mcv 77 and cont with iron Darlin Michael null, [place] - [facility] 3 11:10:00 Problem Notes None recorded. Procedures Surgical History Date Name Laterality Status Provider Name and Address Organization Details Recorded Time 5 Colposcopy - Cervix cancelled Sylvia [facility] 11/02/2024 16:30:31 4 Colposcopy - Cervix cancelled Sylvia [facility] 10/20/2024 12:44:46 4 IUD Removal completed JACOBO HYLTON-BENITEZ [address] [place] [address], [address], [facility] 10/19/2024 15:08:58 4 Date of Last Pap Smear completed JASON RAND [address] [place] [address], [address], [facility] [employer] [facility] 09/28/2024 14:37:01 4 IUD Exchange cancelled Caterina Dickson [facility] [employer] [facility] 01/17/2024 12:18:19 3 IUD Insertion completed Holly AnguianoBakari, [facility] [address] [facility], [place], [address], [facility] [employer] [facility] 08/08/2023 12:13:21 Imaging Results None recorded. Procedure Notes None recorded. Medical Equipment None Reported. Allergies No known drug allergies Medications Name Sig Start Date Stop Date Status Note LastModified by Organization Details LastModified Time cyclobenzap rine 10 mg tablet 12/06 completed Not Available Not Available Not Available Pain Reliever Extra Strength (acetaminop hen) 500 mg tablet TAKE 2 TABLETS BY MOUTH EVERY 6 HOURS NEEDED 07/17 completed Not Available Not Available Not Available terconazole 0.4 % vaginal cream INSERT ONE APPLICATO RFUL VAGINALLY AT BEDTIME FOR 7 NIGHTS 07/04 completed Not Available Not Available Not Available labetalol 200 mg tablet 07/17 completed Not Available Not Available Not Available fluconazole 150 mg tablet TAKE 1 TABLET BY MOUTH EVERY 72 HOURS 03/11 completed Not Available Not Available Not Available meloxicam 15 mg tablet TAKE 1 TABLET BY MOUTH EVERY DAY 12/06 completed Not Available Not Available Not Available pyridoxine (vitamin B6) 25 mg tablet Take 1 tablet 3 times a day by oral route for 30 days. 2024 active Not Available Not Available Not Avai lable metronidazo le 0.75 % (37.5 mg/5 gram) vaginal gel INSERT 1 APPLICATO RFUL VAGINALLY EVERY DAY 03/11 completed Not Available Not Available Not Available metronidazo le 500 mg tablet Take 1 tablet every 12 hours by oral route for 7 days. 02/23 completed Not Available Not Available Not Available ondansetron 8 mg disintegrat ing tablet DISSOLVE 1 TABLET ON THE TONGUE TWICE DAILY NEEDED active Not Available Not Available No t Available meloxicam 7.5 mg tablet TAKE 1 TABLET BY MOUTH EVERY DAY AFTER A MEAL 12/06 completed Not Available Not Available Not Available docusate sodium 100 mg capsule TAKE ONE CAPSULE BY MOUTH TWICE DAILY NEEDED FOR CONSTIPAT ION 07/17 completed Not Available Not Available Not Available hydrochloro thiazide 25 mg tablet 07/17 completed Not Available Not Available Not Available Zofran 4 mg/5 mL oral solution Take 10 mL twice a day by oral route. active Not Available Not Available No t Available ibuprofen 600 mg tablet 07/17 completed Not Available Not Available Not Available scopolamine 1 mg over 3 days transdermal patch Apply 1 patch twice a week by transderm al route. 01/03 completed Not Available Not Available Not Available ondansetron 4 mg disintegrat ing tablet DISSOLVE 1 TABLET ON THE TONGUE EVERY 8 HOURS NEEDED FOR NAUSEA 03/11 completed Not Available Not Available Not Available Unisom (doxylamine ) 25 mg tablet Take 1/2 or 1 tablet at bedtime 2024 active Not Available Not Available Not Avai lable naproxen 500 mg tablet TAKE ONE TABLET BY MOUTH TWICE DAILY WITH FOOD NEEDED FOR PAIN 12/06 completed Not Available Not Available Not Available amoxicillin 875 mg-potassiu m clavulanate 125 mg tablet TAKE 1 TABLET BY MOUTH EVERY 12 HOURS 07/04 completed Not Available Not Available Not Available Adult Low Dose Aspirin 81 mg tablet,kathrine yed release Take 2 tablets every day by oral route. 07/17 completed Not Available Not Available Not Available nitrofurant oin monohydrate /macrocryst als 100 mg capsule TAKE 1 CAPSULE BY MOUTH EVERY 12 HOURS FOR 7 DAYS 03/11 completed Not Available Not Available Not Available ferrous sulfate 324 mg (65 mg iron) tablet,kathrine yed release 07/17 completed Not Available Not Available Not Available Ferretts 325 mg (106 mg iron) tablet Take 1 tablet twice a day by oral route. 07/17 completed Not Available Not Available Not Available cholecalcif ariel (vitamin D3) 125 mcg (5,000 unit) tablet TAKE 1 TABLET BY MOUTH DAILY. 07/17 completed Not Available Not Available Not Available 28 mg iron-800 mcg tablet TAKE 1 TABLET BY MOUTH ONCE DAILY active Not Available Not Available No t Available Diclegis 10 mg-10 mg tablet,kathrine yed release TAKE 2 TABLETS BY MOUTH EVERY NIGHT 07/17 completed Not Available Not Available Not Available WesTab Plus 27 mg iron-1 mg tablet TAKE 1 TABLET BY MOUTH EVERY DAY 04/29 completed Not Available Not Available Not Available Vitals Date Recorded Body height Body mass index (BMI) Body weight Systolic And Diastolic Provider Name and Address Organization Details Last Updated DateTime 12/31/2024 160.02 cm 27 kg/m2 23986.76 g 100/60 mm[Hg] Viry Melendrez [facility] 12/31/2024 10:58:14 Date Recorded Body height Body mass index (BMI) Body weight Provider Name and Address Organization Details Last Updated DateTime 02/15/2025 160.02 cm 27.5 kg/m2 34833.82 g Sarahy Snehal [facility] 02/15/2025 14:20:40 Date Recorded Body height Body mass index (BMI) Body weight Systolic And Diastolic Provider Name and Address Organization Details Last Updated DateTime 02/23/2025 160.02 cm 27.7 kg/m2 13698.13 g 100/60 mm[Hg] Cyndymary jo Elsy [facility] IV 02/23/2025 14:09:03 Date Recorded Body height Body mass index (BMI) Body weight Systolic And Diastolic Provider Name and Address Organization Details Last Updated DateTime 03/11/2025 160.02 cm 27.9 kg/m2 01560.44 g 100/58 mm[Hg] Enmanuel Goncalves [facility] [employer] [facility] IV 03/11/2025 14:50:09 Date Recorded Body height Body mass index (BMI) Body weight Systolic And Diastolic Provider Name and Address Organization Details Last Updated DateTime 10/30/2024 160.02 cm 27.8 kg/m2 13332 g 102/66 mm[Hg] Gilma Jonel [facility] [employer] [facility] IV 10/30/2024 12:41:32 Social History Question Answer Notes LastModified by Organizat ion Details LastModified Time Tobacco Smoking Status Never Smoker Machelle turner [facility] [employer] [facility] IV 12/06/2022 10:16:15 Are You Blind Or Do You Have Difficulty Seeing? No Information not available 01/03/2023 Are You Deaf Or Do You Have Serious Difficulty Hearing? No Information not available 01/03/2023 What Type Of Diet Are You Following? REGULAR Information not available 12/06/2022 How Many Children Do You Have? 4 Information not available 09/15/2024 What Is Your Relationship Status? Single Information not available 12/06/2022 Are You Sexually Active? Yes Information not available 09/15/2024 Sex: Female Functional Status Question Answer Note LastModified by Organizat ion Details LastModified Time Do you use any illicit or recreational drugs? No Information not available 01/03/2023 Do you or have you ever used any other forms of tobacco or nicotine? No kbritsch Information not available 05/21/2023 What is your level of alcohol consumption? None Information not available 12/06/2022 Are you currently employed? Yes Information not available 05/07/2023 What is your occupation? 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 Never used electronic cigarettes Information not available 12/06/2022 What is your exercise level? None Information not available 12/06/2022 Mental Status None recorded. Family History Relationship Description Onset Age of this Age Resolved Age Notes LastModified by Organization Details LastModified Time Father No current problems or disability Not available 12/06 10:22:38 Mother No current problems or disability Not available 12/06 10:22:38 Medical History Condition Response Other Cancer N High Blood Pressure N Colon Cancer N Cytomegalovirus N Hyperthyroidism N Breast Cancer N Herpes (HSV) N MRSA N Blood Transfusion N Lung Cancer N Depression N Hypothyroidism N Incontinence N Panic Attacks N Neurological Disorder N Deep Vein Thrombosis N Anxiety Disorder N Autoimmune disease N Arthritis N Shingles N Tuberculosis/Positive PPD N Infertility N Polycystic Ovarian Syndrome N Cervical Cancer N Chlamydia N Hematuria N Stroke N Varicosities N Seasonal allergies N Crohn's Disease N Alzheimer's/Dementia N COPD/Emphysema N Endometriosis N HPV/Genital Warts N IBS (Irritable Bowel Syndrome) N History of Abnormal Pap N High Cholesterol N Liver Disease N Kidney Infection N Fibromyalgia N Ulcer N Kidney Disease N HIV N Gallbladder disease N Von Willebrand disease N Sickle Cell Disease/Trait N ADD/ADHD N Eating Disorder N Diabetes Mellitus (non-insulin dependent ) N Anemia N Ovarian Problems N Multiple Sclerosis N Gonorrhea N Frequent Urinary Tract infections N Osteopenia N Headaches/migraines N GERD (reflux) N Ovarian Cancer N Diabetes (insulin dependent) N Seizures/Epilepsy N Breast Problems N Fibroids N Asthma N Heart Attack N Endometrial Cancer N Lupus N Rubella N Blood Clotting Disorder N Bipolar Disorder N Diabetes Mellitus (during ) N Ulcerative Colitis N Hepatitis N Heart Disease N Pulmonary Embolism N RPR N Chicken Pox N Osteoporosis N Gynecological History Statement/Question Response Flow Heavy Date of last HPV 09/17/2024 Date of LMP 01/20/2025 HPV Vaccine N Duration of Flow (days) 4 Most Recent Mammogram Current Control Method Age at Menarche 15 Date of Last Colonoscopy Most Recent Bone Density Frequency of Cycle (Q days) 28 Date of Last Pap Smear 09/17/2024 Obstetrics History GPAL:G 4 P 4 0 0 4 Type Value Full Term 4 Living 4 Total 4 Past Encounters Encounter ID Performer Location Encounter Start Date Encounter Closed Date Diagnosis/Indication Diagnosis SNOMED-CT Code Diagnosis ICD10 Code Diagnosis Note [id number] ROLANDO [address] [address] 12/06/2022 10:12:06 12/06/2022 12:43:28 Missed period [id number] N92.5 detection examination 85939727 Z32.01 Z32.00 Hyperemesi s gravidarum 44726607 O21.0 [id number] Holly mason CNM [address] [address] 01/03/2023 09:04:34 01/04/2023 15:01:23 Routine care 242326872 Z34.01 Z34.81 O09.511 O09.098 [id number] Corry Mcmahan MD [address] [address] 03/21/2023 15:35:42 03/22/2023 14:27:46 Routine care [id number] Z34.01 Z34.81 O09.511 O09.521 Low back p ain in [id number] 106 O26.899 Screening for malignant neoplasm of cervix 150363186 Z12.4 Fatigue du ring - not delivered O26.819 Screening for disorder 848370136 Z11.3 N89.9 Gestation period, 26 weeks 15613652 Z3A.26 [id number] Corry Mcmahan MD [address] [address] 04/04/2023 10:15:44 04/05/2023 15:24:32 Routine care 762357117 Z34.01 Z34.81 O09.511 O09.521 Screening for disorder 592620321 Z11.3 N89.9 Gestation period, 28 weeks 83439706 Z3A.28 screening 2437 33003 Z36.9 Depression screening 171 053434 Z13.31 [id number] Corry Mcmahan MD [address] [address] 04/16/2023 11:41:48 04/17/2023 09:49:18 Routine care 370379075 Z34.83 labs from last visit Screening for disorder 526661419 Z11.3 N89.9 labs from last visit screening 2437 05774 Z36.9 labs from last visit Gestation period, 30 weeks 57092822 Z3A.30 Low back p ain in 5677716340 106 O26.899 Anemia of 2733 2003 O99.900 [id number] Sav Calderón MD [address] [place] [address] 05/07/2023 10:54:34 05/07/2023 17:14:12 Routine care 927250254 Z34.83 labs from last visit screening 2437 87074 Z36.9 labs from last visit Screening for disorder 979935484 Z11.3 N89.9 labs from last visit Low back p ain in [id number] 106 O26.899 Anemia of 2733 2003 O99.019 Gestation period, 33 weeks 96929848 Z3A.33 [id number] Sav Calderón MD [address] [place] [address] 05/22/2023 10:29:50 05/23/2023 14:42:39 Routine care 978308545 Z34.83 labs from last visit Screening for disorder 499163219 Z11.3 N89.9 labs from last visit Anemia of 2734 2003 O99.019 Gestation period, 35 weeks 25304843 Z3A.35 Urinary tr act infectious disease 55710708 N39.0 Bacterial vaginosis 4197 64280 N76.0 [id number] Sav Calderón MD [facility] [address] [place] [address] 05/29/2023 17:15:37 06/10/2023 10:49:55 Gestation period, 36 weeks 44439532 Z3A.36 [id number] Angelita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 Menstrual Period Date Ultra Sound Weeks Gestation 03/11/2025 0 Eighteen To Twenty Week Sandro Update Ultra Sound Date Fundal Height At Umbil Quickening Date Ultra Sound Latest Weeks Gestation Final Sandro Confirmed By Final Sandro Confirmed Date Final Sandro Date Ultra Sound Latest Days Gestation 0 10/27/20 25 0 Menstrual History Last Menstrual Date Menses Monthly On Bcp Conception Prior Menses Frequency Hcg Plus Date Menarche Onset Age Delivery Information Delivery Date Delivery Type Labor Anesthesia Weeks Gestation Incision Type Labor Labor Length Hrs Delivered By Post Complications Tubal Sterilization Discharge Date Comments Discharge Information Feeding Method Contraceptive Method Maternal HG B and HCT Levels
--- OUTSIDE RECORDS SUMMARY | 2025-05-11 15:45 | XMS_ITS | Referral Summary ---
Author Organization [facility] Address [address] [place] [address] Care Team Providers Care Veterans' Counselor Name Role Phone No, Physician Primary Care Provider Encounters Date Type Department Care Team Description 03/25/2025 Telephone [facility] [address] [facility] [address] [place] [address] Marli Cuba, RN No Show NOB 02/17/2025 Telephone [facility] [address] [facility] [address] [place] [address] Marli Ho MD New patient NOB from Last 3 Months Allergies No known active allergies Medications PNV #[id number] acid-dha 35 mg iron-5 mg iron-1 mg [...] Results Component Value Date RUBELIGG Reactive 11/13/2022 [id number] Nonreactive 11/13/2022 HEPBSAG Nonreactive 11/13/2022 HEPCAB Nonreactive [...] [] 1h GTT: No results found for: [id number] [] CBC: [] Flu vaccine: [] Rhogam (28 wks if Rh neg): [] Tdap vaccine: [] 32 wk ultrasound: [] RSV vaccine (32-36wks): [] GBS (36 wks): No results found for: GBS No results found for: [id number] Counseling: [] Back Up Machine Operator: [] Circumcision: [] Method of feeding: [] Method of contraception: [] Epidural: [] Route of Delivery: [] Timing of Delivery: [] Childbirth classes 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 Resolved Problems Problem Noted Date Diagnosed Date Resolved Date Supervision of other normal , antepartum 11/27/2022 02/19/2025 Immunizations Immunization Administration Dates Next Due Hep A, Adult 12/22/2021 Influenza, Quadrivalent, Spl it, Preservative Free, Intramuscular 09/09/2023 Tdap 12/22/2021,02/12/2020 Social History Tobacco Use Types Packs/Day Years [...] on file 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 Gender Identity Not on file Sexual Orientation Not on file 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 Blood 11/13/2022 4:13 PM COUNTY OR CITY AUDITOR 11/13/2022 6:39 PM COUNTY OR CITY AUDITOR Petros Hutchinson MD LAB MICROBIOLOGY - GENERAL ORDERABLES Final Result Performing Organization Address City/State/[facility] [place] tn Phone Number JEAN MH [phone] [facility] [place] [address] from Last 3 Months or Most Recently Relevant to Health Maintenance Insurance [employer] [facility] [employer] Address: [facility] [address] [place] [address] [employer] Address: [facility] [id number] [place] [address] [employer] Care Teams Veterans' Counselor Relationship Specialty Start Date End Date No, Physician PCP - General 02/27/17
--- OUTSIDE RECORDS SUMMARY | 2025-05-11 15:45 | XMS_ITS | Clinical Summary ---
Author Organization [facility] Address [facility] [place] [address] Care Team Providers Care Applications Systems Analyst Name Role Phone None, Provider MD Primary Care Provider Unavaila ble Allergies No known active allergies Medications vitamin, low iron, 27-0.8 MG tablet Take 1 tablet by mouth daily. Active ferrous sulfate EC 324 (65 Fe) MG tablet Take 1 tablet (324 mg total) by mouth daily with breakfast. 30 tablet 06/19/2023 Active hydroCHLOROthiaz kuldeep (HYDRODIURIL) 25 MG tablet Take 1 tablet (25 mg total) by mouth daily. 30 tablet 06/24/2023 Active labetalol (NORMODYNE) 200 MG tablet Take 1 tablet (200 mg total) by mouth every 12 (twelve) hours. 60 tablet 06/23/2023 Active Active Problems Problem Noted Date Diagnosed Date ([facility]) 06/23/2023 Pre-eclampsia in period ([facility]) 10/2023 39 weeks gestation of ([facility]) 2022 Comments Yes Encounters Date Type Department Care Team Description 02/23/2025 8:51 AM CDT - 02/23/2025 9:40 AM CDT Emergency [facility] [place] [address] Riley Minor PA-C Vaginal Discharge Discharge Disposition: Home or Self Care (Routine Discharge) 02/23/2025 Travel from Last 3 Months Social History Tobacco Use Types Packs/Day Years Used Date Smoking Tobacco: Never Smokeless Tobacco: Never Tobacco Cessation:Counseling Given: No Alcohol Use Standard Drinks/Week Comments Not Currently 0 (1 standard drink = 0.6 oz pur e alcohol) Humiliation, Afraid, Rape, and Kick questionnair e Answer Date Recorded Within the last year, have y ou been afraid of your partner or ex-partner? No 06/19/2023 Within the last year, have y ou been humiliated or emotionally abused in other ways by your partner or ex-partner? No Within the last year, have y ou been kicked, hit, slapped, or otherwise physically hurt by your partner or ex-partner? No 06/19/2023 Within the last year, have y ou been raped or forced to have any kind of sexual activity by your partner or ex-partner? No 06/19/2023 Social Connection and Isolat ion Panel [NHANES] Answer Date Recorded In a typical week, how many times do you talk on the phone with family, friends, or neighbors? More than three times a week 06/19/2023 How often do you get togethe r with friends or relatives? More than three times a week 06/19/2023 How often do you attend [facility] or mu-ism services? More than 4 times per year 06/19/2023 Do you belong to any clubs o r organizations such as jew groups, unions, fraternal or athletic groups, or school groups? No 06/19/2023 How often do you attend meet ings of the clubs or organizations you belong to? Never 06/19/2023 Are you , , di vorced, , never , or living with a partner? Never 06/19/2023 AUDIT-C Answer Date Recorded Q1: How often do you have a drink containing alcohol? Never 06/19/2023 Q2: How many drinks containi ng alcohol do you have on a typical day when you are drinking? Patient does not drink Q3: How often do you have si x or more drinks on one occasion? Never 06/19/2023 Overall Financial Resource Strain (CARDIA) Answe r Date Recorded How hard is it for you to pa y for the very basics like food, housing, medical care, and heating? Not hard at all 06/19/2023 [facility] of Occupat ional Health - Occupational Stress Questionnaire Answer Date Recorded Do you feel stress - tense, restless, nervous, or anxious, or unable to sleep at night because your mind is troubled all the time - these days? Not at all 06/19/2023 Exercise Vital Sign Answer Date Recorde d On average, how many days pe r week do you engage in moderate to strenuous exercise (like a brisk walk)? 2 days 06/19/2023 On average, how many minutes do you engage in exercise at this level? 150+ min 06/19/2023 Hunger Vital Sign Answer Date Recorded Within the past 12 months, y ou worried that your food would run out before you got the money to buy more. Never true 06/19/20 23 Within the past 12 months, t he food you bought just didn't last and you didn't have money to get more. Never true 06/19/2023 PRAPARE - Transportation Answer Date Re corded In the past 12 months, has l ack of transportation kept you from medical appointments or from getting medications? No 07/2023 In the past 12 months, has l ack of transportation kept you from meetings, work, or from getting things needed for daily living? No 06/19/2023 Housing Stability Vital Sign Answer Padilla e Recorded In the last 12 months, was t here a time when you were not able to pay the mortgage or rent on time? No 06/19/2023 In the last 12 months, how many places have you lived? 1 06/19/2023 In the last 12 months, was t here a time when you did not have a steady place to sleep or slept in a long term (including now)? No 06/19/2023 Depression Answer Date Recor ded Last EPDS Total Score 1 06/19/2023 Last EPDS Self Harm Result Hardly ever 06/19 Comments Yes Sex and Gender Information Value Date Recorded Sex Assigned at Female 02/23/2025 8:46 AM CDT Legal Sex Female 5:42 AM CDT Gender Identity Not on file Sexual Orientation Not on file Last Filed Vital Signs Vital Sign Reading Time Taken Comments Blood Pressure 123/82 02/23/2025 8:46 AM CDT Pulse 101 02/23/2025 8:46 AM CDT Temperature 36.4 C (97.5 F) 02/23/2025 8:46 AM CDT Respiratory Rate 16 02/23/2025 8:46 AM CDT Oxygen Saturation 99% 02/23/2025 8:46 AM CDT Inhaled Oxygen Concentration - - Weight 71.6 kg (157 lb 13.6 oz) 02/23/2025 8:46 AM CDT Height 160 cm (5' 3) 02/23/2025 8:46 AM CDT Body Mass Index 27.96 02/23/2025 8:46 AM CDT Plan of Treatment Health Maintenance Due Date Last Done Comments Cervical Cancer Screening Pa p Smear (Age 30 to 64) Every 3 Years 1992 Annual Physical 1995 Hepatitis B Vaccines (1 of 3 - 19+ 3-dose series) 2011 Cervical Cancer Screening Pa p with HPV Testing (Age 30 to 64) Every 5 Years 2022 Cervical Cancer Screening wi th HPV 2022 COVID-19 Vaccine ( - 2023-2 5 season) 2024 DTaP, Tdap and Td Vaccines ( 3 - Td or Tdap) 12/22/2031 12/22/2021, 02/12/2020 RSV Immunization or 60+ Years (1 - 1-dose 75+ series) 2067 Hepatitis C Completed 04/04/2023 HPV Vaccines Aged Out No longer eligi ble based on patient's age to complete this topic Meningococcal B Vaccine Aged Out No l onger eligible based on patient's age to complete this topic Meningococcal Vaccine Aged Out No diana bria eligible based on patient's age to complete this topic Pneumococcal Vaccine: Pediatrics (0 to 5 Years) and At-Risk Patients (6 to 49 Years) Aged Out No longer eligible b ased on patient's age to complete this topic RSV Immunizations Under 20 Months Aged Out No longer eligible b ased on patient's age to complete this topic Procedures Procedure Name Priority Date/Time Associated Diagnosis Comments HC URINALYSIS AUTO W/O MICRO STAT 02/23/2025 8:54 AM CDT HEPATITIS C ANTIBODY Routine 04/04/2023 from Last 3 Months or Most Recently Relevant to Health Maintenance Results * URINALYSIS (02/23/2025 8:54 AM CDT) SPECIMEN TYPE URINE CLEAN CATCH 02/23/2025 8:57 AM T [facility] COLOR (U) LIGHT YELLOW 02/23/2025 9:10 AM T [facility] TRANSPARENCY CLEAR 02/23/2025 9:10 AM T [facility] SPECIFIC GRAVITY (U) 1.029 1.001 - 1.030 02/23/2025 9:10 AM T [facility] U PH 6.0 5.0 - 9.0 02/23/2025 9:10 AM T [facility] LEUKOCYTES (U) NEGATIVE NEGATIVE 02/23/2025 9:10 AM T [facility] NITRITES NEGATIVE NEGATIVE 02/23/2025 9:10 AM T [facility] PROTEIN RANDOM (U) NEGATIVE <30 MG/DL 02/23/2025 9:10 AM T [facility] GLUCOSE (U) NORMAL NORMAL MG/DL 02/23/2025 9:10 AM T [facility] KETONES MG/DL (U) NEGATIVE NEGATIVE MG/DL 02/23/2025 9:10 AM T [facility] UROBILINOGEN NORMAL NORMAL MG/DL 02/23/2025 9:10 AM T [facility] BILIRUBIN (U) NEGATIVE NEGATIVE MG/DL 02/23/2025 9:10 AM T [facility] BLOOD (U) NEGATIVE NEGATIVE 02/23/2025 9:10 AM T [facility] MUCUS RARE /LPF 02/23/2025 9:10 AM T [facility] WBC/HPF 1 <6 /HPF 02/23/2025 9:10 AM T [facility] RBC/HPF 4 <6 /HPF 02/23/2025 9:10 AM CDT [facility] SQUAMOUS EPITHELIALS FEW /HPF 02/23/2025 9:10 AM CDT [facility] URINE SPECIMEN OBTAINED BY CLEAN CATCH PROCEDURE / Unknown 02/23/2025 8:54 AM CDT us Riley Minor PA-C URINE ORDERABLES Final Resu lt [facility] [address] [place] [address], [place] [phone] * HEPATITIS C ANTIBODY (04/04/2023) HEPATITIS C AB Non-Reacti ve Narrative Resulting Agency Comment us Default History Genericprovider LABORATORY Final Result from Last 3 Months or Most Recently Relevant to Health Maintenance Insurance [facility] Advance Directives * Full Code (Latest Code Status on File) Date Activated Date Inactivated Comments 06/22/2023 6:35 AM 06/23/2023 1:57 PM * Full Code Date Activated Date Inactivated Comments 06/17/2023 6:00 AM 06/19/2023 3:44 PM Care Teams Applications Systems Analyst Relationship Specialty Start Date End Date None, Provider, MD PCP - General UNKNOWN PHYSICIAN SPECIALTY 06/17/23
--- OUTSIDE RECORDS SUMMARY | 2025-05-11 15:45 | XMS_ITS | Data Portability ---
Author Organization [facility] Kimani Gandhi Address [address] [place] [address] Care Team Providers Care Dust Collector Treater Name Role Phone NICOLETTE MAYO Dispensary Technician Unavailable Assessment No assessment recorded. Plan of Treatment Reminders Order Date Submit Date Provider Last Modified By Organization Details Last Modified Time Details Appointments None recorded. Lab vaginal pathogens panel, JANET+probe , vaginal fluid 2021 022 [employer] [facility], [address] [place] [address], [facility] [address], [place], [address], 2 03:07:52 urinalysi s, dipstick 2021 022 [email or web address] 1 In-Office Order, Internal Use Only DO Not Attach Compendium DO Not Attach Compendium, Do Not Delete/merge, [id number] 2 07:18:26 pap, IG + reflex HPV 2021 022 DBA_PATCH_2 [id number] [facility], [address] [place], [address], [address], 3 03:37:16 test, urine 2021 022 [email or web address] 1 In-Office Order, Internal Use Only DO Not Attach Compendium DO Not Attach Compendium, Do Not Delete/merge, [id number] 2 17:30:42 bacterial vaginosis score, JANET+probe , vaginal fluid (OBS) 2021 022 [employer] [facility], [address], [address], [place], [address], 16:10:41 varicella zoster virus IgG Ab, QN, IA, serum 2021 [facility], [address], [address], [place], [address], 19:07:49 Referral orthopedi c surgeon referral 2021 ATHENAFAX Tc Conley MD, [address], [facility], [place], [address], 15:44:04 physical therapist referral 2021 ATHENAFAX Not available 11:26:47 Procedures None recorded. Surgeries None recorded. Imaging XR, wrist, 3 or more view [address] ([facility] [employer]), [address] [place], [address], 12:14:36 Medication Orders Aspercrem e (lidocain e HCl) 4 % topical 2021 [id number], [address], [place], [phone], 14:10:15 meloxicam 7.5 mg tablet 2021 [facility] #13900, [address], [place], [phone], 14:09:22 28 mg iron-800 mcg tablet 2021 [facility][id number], [address] [place], [place], [id number], 17:17:18 metronida zole 0.75 % (37.5 mg/5 gram) vaginal gel 2021 022 [facility], [address] [place], [phone], 14:09:31 Patient TargetsNo targets recorded. Patient Instructions Encounter Date Encounter Id Patient Instructions Last Modified By Organization Details Last Modified Time 08/23/2022 [id number] Well Visit, Ages 18 to 65: Care Instructions Not available 08/23/2022 17:16:15 10/17/2022 [id number] Patient's LMP wa s 09/17/22 and she took several tests at home on 09/30 which were positive. She denies bleeding, cramping at this time. To schedule initial OB visit in ~1 month. CHAU Rico Discussed with Abimbola Mayo PA-C Not available 10/18/2022 07:20:00 Reason for Referral Orthopedic Surgeon Referral for Pain of left wrist Referring Physician: Lisa Alfaro, Internal Medicine, Encounter Date: 09/11/2022 Physical Therapist Referral for Pain of left wrist Referring Physician: Lisa Alfaro, Internal Medicine, Encounter Date: 09/11/2022 Results Created Date Observation Date Name Description Value Unit Range Abnormal Flag Note LastModifiedBy Organization Detail LastModifiedTime 12/07/1912/07/2021 PPD (sean fied prote in deriv ative ), skin test Result Negati ve Not Available In-Office Order Internal Use Only DO Not Attach Compendium DO Not Attach Compendium, Do Not Delete/merge, [id number] 12/07/2021 10:25:46 12/19/19 22 12/19/2021 PPD (sean fied prote in deriv ative ), skin test Result NOT READ Not Available In-Office Order Internal Use Only DO Not Attach Compendium DO Not Attach Compendium, Do Not Delete/merge, [id number] 12/12/2021 11:48:39 12/21/19 22 12/21/2021 PPD (sean fied prote in deriv ative ), skin test Result Negati ve Not Available In-Office Order Internal Use Only DO Not Attach Compendium DO Not Attach Compendium, Do Not Delete/merge, [id number] 12/21/2021 14:11:24 12/22/19 22 12/23/2021 VARIC SAL- ZOSTE R V AB, IGG varicella zoster IgG 669 index immune >165 Negat thea <135 Equiv ocal 135 - 165 Posit thea >165 A posit thea resul t gener ally indic ates expos ure to the patho gen or admin istra tion of speci fic immun oglob ulins , but it is not indic ation of activ e infec tion or stage of disea se. Not Available [facility] ([facility]) [address] [facility], [place], [address], 12/23/2021 19:07:49 08/23/2008/24/2022 IGP,A PTIMA HPV,A GE GDLN age gdln acog testing 21-29 Not Available [facility] ([facility]) [address] [place], [address], 08/29/2022 11:37:49 08/23/20 22 08/27/2022 NUSWA B VG+, HSV atopobium vaginae LOW - 0 score Not Available [facility] ([facility]) [address] [place], [address], 08/27/2022 16:10:41 08/23/20 22 08/27/2022 NUSWA B VG+, HSV bvab 2 LOW - 0 score Not Available [facility] ([facility]) [address] [place], [address], 08/27/2022 16:10:41 08/23/20 22 08/27/2022 NUSWA B VG+, HSV megasphaera 1 LOW - 0 score Calcu late total score by tonio dejesus the 3 indiv idual bacte rial vagin osis (BV) marke r score s toget her. Total score is inter prete d as follo ws: Total score 0-1: Indic ates the absen ce of BV. Total score 2: Indet ermin ate for BV. Addit ional clini berta data shoul d be evalu ated to estab donita a diagn osis. Total score 3-6: Indic ates the prese nce of BV. This test was devel oped and its perfo rmanc e gemma cteri stics deter mined by [facility]. It has not been clear ed or appro roverto by the Food and Drug Admin istra tion. Not Available [facility] ([facility]) [address] [place], [address], 08/27/2022 16:10:41 08/23/20 22 08/27/2022 NUSWA B VG+, HSV john albicans, JANET NEGATI VE negati ve Not Available [facility] ([facility]) [address] [place], [address], 08/27/2022 16:10:41 08/23/2008/27/2022 NUSWA B VG+, HSV john glabrata, JANET NEGATI VE negati ve Not Available [facility] ([facility]) [address] [place], [address], 08/27/2022 16:10:41 08/23/20 22 08/27/2022 NUSWA B VG+, HSV trich vag by JANET NEGATI VE negati ve Not Available [facility] ([facility]) [address] [place], [address], 08/27/2022 16:10:41 08/23/20 22 08/27/2022 NUSWA B VG+, HSV chlamydia trachomatis, JANET NEGATI VE negati ve Not Available [facility] ([facility]) [address] [place], [address], 08/27/2022 16:10:41 08/23/20 22 08/27/2022 NUSWA B VG+, HSV neisseria gonorrhoeae, JANET NEGATI VE negati ve Not Available [facility] ([facility]) [address] [place], [address], 08/27/2022 16:10:41 08/23/20 22 08/27/2022 NUSWA B VG+, HSV hsv 1 JANET NEGATI VE negati ve Not Available [facility] ([facility]) [address] [place], [address], 08/27/2022 16:10:41 08/23/2008/27/2022 NUA B VG+, HSV hsv 2 JANET NEGATI VE negati ve Not Available [facility] ([facility]) [address] [place], [address], 08/27/2022 16:10:41 08/23/2008/29/2022 IGP, RFX APTIM A HPV ASCU diagnosis: COMMEN T NEGAT THEA FOR INTRA EPITH ELIAL LESIO N OR JERONIMO VELEZ . THIS SPECI MEN WAS RESCR EENED PART OF OUR QUALI TY CONTR OL PROGR AM. Not Available [facility] ([facility]) [address] [place], [address], 08/29/2022 11:37:49 08/23/2008/29/2022 IGP, RFX APTIM A HPV ASCU specimen adequacy: COMMEN T Satis facto ry for evalu ation . No endoc ervic al compo nent is ident ified . The absen ce of an endoc ervic al compo nent was confi rmed by an addit cyn julian evalu ation . Not Available [facility] ([facility]) [address] [place], [address], 08/29/2022 11:37:49 08/23/2008/29/2022 IGP, RFX APTIM A HPV ASCU clinician provided ICD10: COMMEN T Z01.4 19 Not Available [facility] ([facility]) [address] [place], [address], 08/29/2022 11:37:49 08/23/2008/29/2022 IGP, RFX APTIM A HPV ASCU performed by: HARPER negro, Cytot echno logis t (ASCP ) Not Available [facility] ([facility]) [address] [place], [address], 08/29/2022 11:37:49 08/23/2008/29/2022 IGP, RFX APTIM A HPV ASCU QC reviewed by: HARPER Coffman, Cytot echno logis t (ASCP ) Not Available [facility] ([facility]) [address] [place], [address], 08/29/2022 11:37:49 08/23/2008/29/2022 IGP, RFX APTIM A HPV ASCU . . Not Available [facility] ([facility]) [address] [place], [address], 08/29/2022 11:37:49 08/23/2008/29/2022 IGP, RFX APTIM A HPV ASCU note: HARPER Mendez The Pap smear is a scree eliel test desjosy moored to aid in the detec tion of yang ligna nt and malig nant condi tions of the uteri ne cervi x. It is not a diagn ostic proce dure and shoul d not be used as the sole means of detec ting cervi berta cance r. Both false -posi tive and false -nega tive repor ts do occur . Not Available [facility] ([facility]) [address] [facility], [place], [address], 08/29/2022 11:37:49 08/23/2008/29/2022 IGP, RFX APTIM A HPV ASCU test methodology: COMMEN T This liqui d based ThinP rep(R ) pap test was elena moore with the use of an image guide vic perry. Not Available [facility] ([facility]) [address] [place], [address], 08/29/2022 11:37:49 08/23/20 22 08/29/2022 IGP, RFX APTIM A HPV ASCU . COMMEN T The HPV DNA refle x crite dylan were not met with this speci men resul t there fore, no HPV testi ng was perfo rmed. Not Available [facility] ([facility]) [address] [facility], [place], [address], 08/29/2022 11:37:49 08/23/20 22 08/23/2022 pregn kris test, urine HCG negati ve Not Available In-Office Order Internal Use Only DO Not Attach Compendium DO Not Attach Compendium, Do Not Delete/merge, [id number] 08/23/2022 17:06:42 10/17/20 22 10/18/2022 NUSWA B VAGIN ITIS PLUS (VG+) atopobium vaginae High - 2 score abnormal Not Available [facility] ([facility]) [address] [facility], [place], [address], 10/19/2022 03:07:52 10/17/20 22 10/18/2022 NUSWA B VAGIN ITIS PLUS (VG+) bvab 2 Low - 0 score Not Available [facility] ([facility]) [address] [place], [address], 10/19/2022 03:07:52 10/17/20 22 10/18/2022 NUSWA B VAGIN ITIS PLUS (VG+) megasphaera 1 Low - 0 score Calcu late total score by tonio dejesus the 3 indiv idual bacte rial vagin osis (BV) marke r score s toget her. Total score is inter prete d as follo ws: Total score 0-1: Indic ates the absen ce of BV. Total score 2: Indet ermin ate for BV. Addit ional clini berta data shoul d be evalu ated to estab donita a diagn osis. Total score 3-6: Indic ates the prese nce of BV. This test was devel oped and its perfo rmanc e gemma cteri stics deter mined by [facility]. It has not been clear ed or appro roverto by the Food and Drug Admin istra tion. Not Available [facility] ([facility]) [address] [place], [address], 10/19/2022 03:07:52 10/17/20 22 10/18/2022 NUSWA B VAGIN ITIS PLUS (VG+) john albicans, JANET Negati ve negati ve Not Available [facility] ([facility]) [address] [place], [address], 10/19/2022 03:07:52 10/17/20 22 10/18/2022 NUSWA B VAGIN ITIS PLUS (VG+) john glabrata, JANET Negati ve negati ve Not Available [facility] ([facility]) [address] [place], [address], 10/19/2022 03:07:52 10/17/20 22 10/18/2022 NUSWA B VAGIN ITIS PLUS (VG+) trich vag by JANET Negati ve negati ve Not Available [facility] ([facility]) [address] [place], [address], 10/19/2022 03:07:52 10/17/20 22 10/18/2022 NUSWA B VAGIN ITIS PLUS (VG+) chlamydia trachomatis, JANET Negati ve negati ve Not Available [facility] ([facility]) [address] [place], [address], 10/19/2022 03:07:52 10/17/20 22 10/18/2022 NUSWA B VAGIN ITIS PLUS (VG+) neisseria gonorrhoeae, JANET Negati ve negati ve Not Available [facility] ([facility]) [address] [facility], [place], [address], 10/19/2022 03:07:52 10/17/20 22 10/17/2022 urina lysis , dipst ick Leukocytes Small Not Available In-Offi ce Order Internal Use Only DO Not Attach Compendium DO Not Attach Compendium, Do Not Delete/merge, [id number] 10/17/2022 16:42:50 10/17/20 22 10/17/2022 urina lysis , dipst ick Nitrite negati ve Not Available In-Office Order Internal Use Only DO Not Attach Compendium DO Not Attach Compendium, Do Not Delete/merge, [id number] 10/17/2022 16:42:50 10/17/20 22 10/17/2022 urina lysis , dipst ick Urobilinogen .2 Not Available In-Of fice Order Internal Use Only DO Not Attach Compendium DO Not Attach Compendium, Do Not Delete/merge, [id number] 10/17/2022 16:42:50 10/17/20 22 10/17/2022 urina lysis , dipst ick Protein Trace Not Available In-Office Order Internal Use Only DO Not Attach Compendium DO Not Attach Compendium, Do Not Delete/merge, [id number] 10/17/2022 16:42:50 10/17/20 22 10/17/2022 urina lysis , dipst ick pH 6.0 Not Available In-Office Order Internal Use Only DO Not Attach Compendium DO Not Attach Compendium, Do Not Delete/merge, [id number] 10/17/2022 16:42:50 10/17/20 22 10/17/2022 urina lysis , dipst ick Blood Non-He molyze d: Trace Not Available In-Office Order Internal Use Only DO Not Attach Compendium DO Not Attach Compendium, Do Not Delete/merge, [id number] 10/17/2022 16:42:50 10/17/20 22 10/17/2022 urina lysis , dipst ick Specific [place] 1.030 Not Available In-Off ice Order Internal Use Only DO Not Attach Compendium DO Not Attach Compendium, Do Not Delete/merge, [id number] 10/17/2022 16:42:50 10/17/20 22 10/17/2022 urina lysis , dipst ick Ketone Negati ve Not Available In-Office Order Internal Use Only DO Not Attach Compendium DO Not Attach Compendium, Do Not Delete/merge, [id number] 10/17/2022 16:42:50 10/17/20 22 10/17/2022 urina lysis , dipst ick Bilirubin Negati ve Not Available In-Office Order Internal Use Only DO Not Attach Compendium DO Not Attach Compendium, Do Not Delete/merge, [id number] 10/17/2022 16:42:50 10/17/20 22 10/17/2022 urina lysis , dipst ick Glucose Negati ve Not Available In-Office Order Internal Use Only DO Not Attach Compendium DO Not Attach Compendium, Do Not Delete/merge, [id number] 10/17/2022 16:42:50 Result Notes None recorded. 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 03 Active 2018 Allie King MD Attn: Gaurav dejesus,[address] [place], [address], [facility] 1 17:32:23 Group B Streptoc occus carrier 28308006451 03 Completed 2018 Allie King MD Attn: Gaurav dejesus,[address] [place], [address], [place] [facility] 1 17:32:23 Bacteria l vaginosi s in pregnanc y 85338033127 9109 Completed 2018 Allie King MD Attn: Gaurav dejesus,[address] [facility], [place], [address], [place] [facility] 1 17:32:22 Bacteria l vaginosi s in pregnanc y 21285756040 9109 Active 2018 Allie King MD Attn: Accountpily g,[address] [facility], [place], [address], [place] [facility] 1 17:32:22 Rubella non-immu ne 997622942 Active 2018 Allie King MD Attn: Daniipily dejesus,[address] [facility], [place], [address], [place] [facility] 1 17:32:23 Rubella non-immu ne 703945452 Completed 2018 Allie King MD Attn: Daniipily dejesus,[address] [facility], [place], [address], [place] [facility] 1 17:32:23 Genital herpes simplex type 2 808274781 Active 2018 Allie King MD Attn: Daniipily dejesus,[address] [facility], [place], [address], [place] [facility] 1 17:32:23 Genital herpes simplex type 2 410039268 Completed 2018 Allie King MD Attn: Daniipily g,[address] [facility], [place], [address], [place] [facility] 1 17:32:23 Anemia 396202703 Active 2018 CRISTI ROMAN Attn: Daniipily g,[address] [facility], [place], [address], [place] [facility] 9 22:39:17 Past pregnanc y history of prematur e labor 954050536 Completed 2019 Weekly Aurelia injectio ns starting at 20 weeks Allie King MD Attn: Accountpily dejesus,[address] [facility], [place], [address], [place] [facility] 1 17:32:23 Past pregnanc y history of prematur e labor 725438608 Active 2019 Weekly Little Browning injectio ns starting at 20 weeks Allie King MD Attn: Accountpily g,[address] [facility], [place], [address], [place] [facility] 1 17:32:23 Low grade squamous intraepi thelial lesion on cervical Papanico laou smear 37057777186 105 Completed 2018 Repeat pap 6 weeks postpart um Allie King MD Attn: Accountpily g,[address] [facility], [place], [address], [place] [facility] 1 17:32:22 Past pregnanc y history of pre-ecla mpsia 20423335383 9100 Completed 2019 postpart um Allie King MD Attn: Accountpily g,[address] [facility], [place], [address], [place] [facility] 1 17:32:23 Past pregnanc y history of pre-ecla mpsia 66610430184 9100 Active 2019 postpart um Allie King MD Attn: Accountpily g,[address] [facility], [place], [address], [place] [facility] 1 17:32:23 Steriliz ation requeste d [id number] Completed 2019 PAPERS SIGNED, NOT YET DATED Allie King MD Attn: Accountin g,[address] [facility], [place], [address], [place] [facility] 1 17:32:22 Steriliz ation requeste d [id number] Active 2019 PAPERS SIGNED, NOT YET DATED Allie King MD Attn: Accountin g,[address] [facility], [place], [address], [place] [facility] 1 17:32:22 Insuffic ient care 78761561457 09 Active 2019 Allie King MD Attn: Gaurav dejesus,[address] [facility], [place], [address], [facility] 1 17:32:22 Insuffic ient care 45722967899 09 Completed 2019 Allie King MD Attn: Gaurav dejesus,[address] [facility], [place], [address], [place] - [facility] 1 17:32:22 Anemia of pregnanc y 44881617 Active 2019 Allie King MD Attn: Gaurav dejesus,[address] [facility], [place], [address], [facility] 1 17:32:22 Anemia of pregnanc y 70887084 Completed 2019 Allie King MD Attn: Gaurav dejesus,[address] [facility], [place], [address], [place] - [facility] 1 17:32:22 Candidia sis of vagina 34836835 Active 2019 Allie King MD Attn: Gaurav dejesus,[address] [facility], [place], [address], [place] - [facility] 1 17:32:22 Candidia sis of vagina 47643457 Completed 2019 Allie King MD Attn: Gaurav dejesus,[address] [facility], [place], [address], [place] - [facility] 1 17:32:22 Problem Notes Documentation Provider Name and Address Organization Details Recorded Time 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 Patient : 1990. Patient . Viyr Galvin null, [facility] 11/10/2024 16:43:32 Procedures Surgical History Date Name Laterality Status Provider Name and Address Organization Details Recorded Time 08/23/2022 Date of Last Pap Smear completed Tracie Ladd MA [facility] 08/23/2022 16:58:40 Imaging Results None recorded. Procedure Notes None recorded. Medical Equipment None Reported. Allergies No known drug allergies Medications Name Sig Start Date Stop Date Status Note LastModified by Organization Details LastModified Time nifedipine ER 30 mg tablet,ext ended release 24 hr Take 1 tablet every day by oral route. 06/02 completed Not Available Not Available Not Available cyclobenza eufemia 10 mg tablet 10/17 completed Not Available Not Available Not Available Pain Reliever Extra Strength (acetamino phen) 500 mg tablet TAKE 2 TABLETS BY MOUTH EVERY 6 HOURS NEEDED active Not Available Not Available No t Available terconazol e 0.4 % vaginal cream INSERT ONE APPLICAT ORFUL VAGINALL Y AT BEDTIME FOR 7 NIGHTS active Not Available Not Available No t Available labetalol 200 mg tablet active Not Available Not Available Not Available polyethyle ne glycol 3350 17 gram oral powder packet TAKE 1 PACKET BY MOUTH ONCE DAILY 12/05 completed Not Available Not Available Not Available cetirizine 10 mg tablet TAKE 1 TABLET BY MOUTH EVERY DAY 06/02 completed Not Available Not Available Not Available azithromyc in 250 mg tablet TAKE 2 TABLETS (500 MG) BY ORAL ROUTE ONCE DAILY FOR 1 DAY THEN 1 TABLET (250 MG) BY ORAL ROUTE ONCE DAILY FOR 4 DAYS 05/03 completed Not Available Not Available Not Available ibuprofen 800 mg tablet TAKE 1 TABLET BY MOUTH EVERY 6-8 HOURS NEEDED FOR PAIN OR INFLAMMA TION. TAKE WITH FOOD. 06/02 completed Not Available Not Available Not Available fluconazol e 150 mg tablet Take 1 tablet by oral route. 05/03 completed Not Available Not Available Not Available hydrocodon e 5 mg-acetami nophen 325 mg tablet 09/15 completed Not Available Not Available Not Available meloxicam 15 mg tablet TAKE 1 TABLET BY MOUTH EVERY DAY 10/17 completed Not Available Not Available Not Available metronidaz ole 0.75 % (37.5 mg/5 gram) vaginal gel Insert 1 applicat orful every day by vaginal route at bedtime for 5 days. active Not Available Not Available No t Available Tubersol 5 tub. unit/0.1 mL intraderma l injection solution Administ er .1ml interder ravi 12/22 completed Not Available Not Available Not Available clindamyci n HCl 150 mg capsule 09/15 completed Not Available Not Available Not Available hydroxypro gesterone caproate 250 mg/mL intramuscu lar oil Inject 1 mL by intramus cular route. 04/12 completed Not Available Not Available Not Available penicillin V potassium 500 mg tablet Take 1 tablet twice a day by oral route for 7 days. 05/03 completed Not Available Not Available Not Available metronidaz ole 500 mg tablet TAKE 1 TABLET BY MOUTH EVERY 12 HOURS active Not Available Not Available No t Available sulfametho xazole 800 mg-trimeth oprim 160 mg tablet TAKE 1 TABLET BY MOUTH TWICE DAILY WITH FOOD UNTIL ALL TAKEN 12/05 completed Not Available Not Available Not Available aspirin 81 mg tablet,del ayed release TAKE 2 TABLETS BY MOUTH EVERY DAY active Not Available Not Available No t Available tramadol 50 mg tablet 09/15 completed Not Available Not Available Not Available acyclovir 800 mg tablet Take 1 tablet every day by oral route. 06/02 completed Not Available Not Available Not Available Vitamin tablet Take 1 tablet every day by oral route as directed for 90 days. 05/03 completed Not Available Not Available Not Available meloxicam 7.5 mg tablet TAKE 1 TABLET BY MOUTH EVERY DAY AFTER A MEAL 10/17 completed Not Available Not Available Not Available betamethas one acetate and sodium phos 6 mg/mL suspension for injection Take 2 mL every day by injectio n route for 2 days. 04/12 completed Not Available Not Available Not Available oxycodone- acetaminop hen 5 mg-325 mg tablet 09/15 completed Not Available Not Available Not Available famotidine 20 mg tablet Take 1 tablet twice a day by oral route. 05/03 completed Not Available Not Available Not Available ferrous sulfate 325 mg (65 mg iron) tablet Take 1 tablet twice a day by oral route. 06/02 completed Not Available Not Available Not Available progestero ne micronized 200 mg capsule 05/03 completed Not Available Not Available Not Available docusate sodium 100 mg capsule TAKE ONE CAPSULE BY MOUTH TWICE DAILY NEEDED FOR CONSTIPA TION active Not Available Not Available No t Available diclofenac sodium 75 mg tablet,del ayed release 09/15 completed Not Available Not Available Not Available hydrochlor othiazide 25 mg tablet active Not Available Not Available Not Available ibuprofen 600 mg tablet active Not Available Not Available Not Available scopolamin e 1 mg over 3 days transderma l patch APPLY 1 PATCH TOPICALL Y TO THE SKIN EVERY 72 HOURS active Not Available Not Available No t Available intrauteri ne device (IUD) Take by intraute rine route. 12/05 completed Not Available Not Available Not Available ondansetro n 4 mg disintegra ting tablet Take 1 tablet every 8 hours by oral route as needed. active Not Available Not Available No t Available fluticason e propionate 50 mcg/actuat ion nasal spray,susp ension SPRAY 1 SPRAY IN EACH NOSTRIL TWICE DAILY 06/02 completed Not Available Not Available Not Available sertraline 50 mg tablet 06/02 completed Not Available Not Available Not Available naproxen 500 mg tablet TAKE ONE TABLET BY MOUTH TWICE DAILY WITH FOOD NEEDED FOR PAIN 10/17 completed Not Available Not Available Not Available amoxicilli n 875 mg-potassi um clavulanat e 125 mg tablet TAKE 1 TABLET BY MOUTH EVERY 12 HOURS active Not Available Not Available No t Available azithromyc in 500 mg tablet TAKE 2 TABLETS BY MOUTH NOW WITH FOOD DIRECTED 12/05 completed Not Available Not Available Not Available nitrofuran toin monohydrat e/macrocry stals 100 mg capsule TAKE 1 CAPSULE BY MOUTH EVERY 12 HOURS active Not Available Not Available No t Available Mirena 06/02 completed 01/19/21 pt had placed after 6 week pp at other office. DG RMA Not Available Not Available Not Available ferrous sulfate 324 mg (65 mg iron) tablet,del ayed release active Not Available Not Available Not Available Calcium with Vitamin D3 600 mg (carbonate )-10 mcg (400 unit) capsule Take 1 capsule twice a day by oral route. 06/02 completed Not Available Not Available Not Available cholecalci ferol (vitamin D3) 125 mcg (5,000 unit) tablet TAKE 1 TABLET BY MOUTH DAILY. active Not Available Not Available No t Available Little Browning 250 mg/mL intramuscu lar oil Inject 1 mL every week by intramus cular route. 04/12 completed Not Available Not Available Not Available 28 mg iron-800 mcg tablet Take 1 tablet every day by oral route. 2021 active Not Available Not Available Not Avai lable Linzess 290 mcg capsule Take 1 capsule every day by oral route. 05/03 completed Not Available Not Available Not Available Diclegis 10 mg-10 mg tablet,del ayed release TAKE 2 TABLETS BY MOUTH EVERY NIGHT active Not Available Not Available No t Available Multi 27 mg-800 mcg tablet Take 1 tablet every day by oral route. 05/03 completed Not Available Not Available Not Available Aspercreme (lidocaine HCl) 4 % topical Apply 1 applicat ion 4 times a day by topical route as needed for 30 days. 10/17 completed Not Available Not Available Not Available Aurelia 250 mg/mL (1 mL) intramuscu lar oil Inject 1 mL every week by intramus cular route. 04/12 completed Not Available Not Available Not Available WesTab Plus 27 mg iron-1 mg tablet TAKE 1 TABLET BY MOUTH EVERY DAY active Not Available Not Available No t Available Vitals Date Recorded Body height Body mass index (BMI) Body weight Body temperature Oxygen saturation Oxygen saturation in Arterial blood by Pulse oximetry Heart rate Systolic blood pressure Diastolic blood pressure Provider Name and Address Organization Details Last Updated DateTime 2 160.02 cm 24.8 kg/m2 45703.3 6 g 98.6 [degF] 99 % 99 % 80 /min 96 mm[Hg] 76 mm[Hg] Brayden Shanks [place] - [facility] 2 10:40:30 Date Recorded Body height Body mass index (BMI) Body weight Systolic blood pressure Diastolic blood pressure Provider Name and Address Organization Details Last Updated DateTime 08/23/2022 160.02 cm 24.1 kg/m2 44606.56 g 114 mm[Hg] 80 mm[Hg] Tracie Ladd [place] - [facility] 2 17:04:09 Date Recorded Body height Body mass index (BMI) Body weight Heart rate Oxygen saturation Oxygen saturation in Arterial blood by Pulse oximetry Systolic blood pressure Diastolic blood pressure Provider Name and Address Organization Details Last Updated DateTime 2 160.02 cm 23.7 kg/m2 60487.3 8 g 80 /min 98 % 98 % 114 mm[Hg] 80 mm[Hg] Lidia Meza MA [facility] 2 15:38:16 Date Recorded Body height Body mass index (BMI) Body weight Systolic blood pressure Diastolic blood pressure Provider Name and Address Organization Details Last Updated DateTime 10/17/2022 160.02 cm 24.3 kg/m2 19856.15 g 100 mm[Hg] 64 mm[Hg] Chelsey Green MA [facility] 2 14:08:41 Social History Question Answer Notes LastModified by Organizat ion Details LastModified Time Tobacco Smoking Status Never Smoker Marine Pierson [facility], [facility] 09/15/2019 09:52:21 Do You Have An Advance Directive? No Information not available 09/15/2019 If You Are , What Was Your Level Of Alcohol Consumption Prior To ? None Information not available 02/22/2020 Is Blood Transfusion Acceptable In An Emergency? Yes Information not available 09/15/2019 What Is Your Level Of Caffeine Consumption? None Information not available 09/15/2019 Live With Cats/exposure To Cat Litter No Information not available 02/22/2020 How Much Tobacco Do You Chew? None Information not available 09/15/2019 What Type Of Diet Are You Following? REGULAR Information not available 09/15/2019 Which Illicit Or Recreational Drugs Have You Used? None Information not available 09/15/2019 Education 12 Information no t available 09/15/2019 Have There Been Any Changes To Your Family Or Social Situation? Yes Fiance' Commited Suicide 11/17/2019 Information not available 02/22/2020 Frequent Air Travel No Information not available 02/22/2020 Illicit Drugs Pre- None Information not available 02/22/2020 Live Alone Or With Others? With Others Information not available 09/15/2019 What Was The Date Of Your Most Recent Tobacco Screening? 10/17/2022 Information not available 10/17/2022 How Many Children Do You Have? 3 Information not available 05/03/2020 Performs Monthly Self-breast Exam? No Information not available 09/15/2019 Do You Use Protection During Sex? Usually Information not available 09/15/2019 What Is Your Relationship Status? Single Information not available 09/15/2019 Seat Belts Used Routinely Yes Information not available 09/15/2019 Are You Sexually Active? Yes Information not available 09/15/2019 Do You Have Smoke And Carbon Monoxide Detectors In Your Home? Yes Information not available 02/22/2020 At What Age Did You Start Smoking Tobacco? 0 Information not available 09/15/2019 Are You Passively Exposed To Smoke? No Information not available 02/22/2020 How Much Tobacco Do You Smoke? No Information not available 09/15/2019 General Stress Level Medium Fiance' Commited Suicide 11/17/2019 Information not available 02/22/2020 Do You Use Sunscreen Routinely? No Information not available 09/15/2019 Supplements Information not available 02/22/2020 Has Tobacco Cessation Counseling Been Provided? Yes Information not available 08/23/2022 On What Date Was Tobacco Cessation Counseling Provided? 10/17/2022 Information not available 10/17/2022 How Many Years Have You Smoked Tobacco? 0 Information not available 09/15/2019 Sex: Unknown Functional Status Question Answer Note LastModified by Organizat ion Details LastModified Time Do you use any illicit or recreational drugs? No Information not available 08/23/2022 Do you or have you ever used any other forms of tobacco or nicotine? No Information not available 08/23/2022 What is your level of alcohol consumption? None Information not available 09/15/2019 Do you or have you ever used smokeless tobacco? Never used smokeless tobacco Information not available 09/15/2019 Are you currently employed? 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 Never used electronic cigarettes Information not available 09/15/2019 What is your exercise level? None Information not available 09/15/2019 Mental Status None recorded. Family History Relationship Description Onset Age of this Age Resolved Age Notes LastModified by Organization Details LastModified Time Father No current problems or disability [email or web address] Not available 09/15 09:52:10 Mother No current problems or disability [email or web address] Not available 09/15 09:52:10 Medical History Condition Response Other N High Blood Pressure Y Breast Cancer N Thyroid Problems N Kidney or Bladder Problems N GI Problems N Depression N Blood Clots Y Lung Disease N Acne N Eating Disorder N Breast Problem N Anemia Y Anesthesia Complications N Headaches/Migraines N Anxiety Disorder N Diabetes N Ovarian Cancer N Muscle, Joint, or Bone Problems N Blood Transfusions N Seizures/Epilepsy N Polyps N Infertility N Acid Reflux (GERD) N Cancer N Abuse/Domestic Violence N Asthma N Allergies N Endometriosis N High Cholesterol N Hepatitis N Liver Disease N Heart Disease N Pre-Eclampsia N Osteoporosis N Gynecological History Statement/Question Response Flow Moderate Date of LMP 09/17/2022 On BCP's at Conception? N STIs/STDs Y Duration of Flow (days) 3 Age at Menarche 15 Current Control Method Seeking Pre gnancy Age at First Child 23 Menses Monthly Y Date of Last Pap Smear 08/23/2022 LMP Approximate Desired Control Method Unknown Obstetrics History GPAL:G 3 P 1 2 0 3 Type Value Multiple Births 0 Full Term 1 Induced 0 Spontaneous 0 Premature 2 Living 3 Ectopics 0 Total 3 Immunizations Vaccine Type Date Status Note Provider Itfikhar dorado and Address Organization Details Recorded Time Tdap 0 completed KIMO Stuart, [place] - [facility] 02/12/2020 17:12:54 Tdap 2 completed [place] [facility] 12/22/2021 12:23:02 Hep A, adult 2 completed K[place], [place] [facility] 12/22/2021 12:23:02 Influenza, split virus, quadrivalent, preservative 2 completed CRISTI CERVANTES Attn: Accounting,[address] [facility], [place], [address], [facility] 08/24/2022 16:32:09 Past Encounters Encounter ID Performer Location Encounter Start Date Encounter Closed Date Diagnosis/Indication Diagnosis SNOMED-CT Code Diagnosis ICD10 Code Diagnosis Note [id number] CRISTI CERVANTES ([employer] PROC[employer] EXTRACTOR OPERATOR) [address] [place] [address] [id number] 0 09/15/2019 09:06:43 09/16/2019 11:01:53 Routine care 704038005 Z34.91 Venereal d isease screening 748483924 Z11.3 screening 2437 21400 Z36.85 Past pregn kris history of pre-eclampsia 0886393671 06187 Z87.59 Nausea and vomiting 1693 1999 R11.2 [id number] CRISTI CERVANTES (SOLVENT PROCESS EXTRACTOR OPERATOR) [address] [place] [address] [id number] 11/13/2019 10:55:38 11/16/2019 11:22:36 Routine care 465188272 Z34.91 screening 2437 40641 Z36.1 Gastroesop hageal reflux disease without esophagitis 360890378 K21.9 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 042308383 A60.00 Bacterial vaginosis in 6937481588 [address] reptococcus carrier 2897552585 103 Z22.330 Past pregn kris history of premature labor 609742205 Z87.51 Rubella non-immune 26157 4009 Z01.84 [id number] CRISTI CERVANTES (SOLVENT PROCESS EXTRACTOR OPERATOR) [address] [place] [address] [id number] 0 12/11/2019 10:08:53 12/16/2019 17:41:00 [id number] CRISTI CERVANTES (SOLVENT PROCESS EXTRACTOR OPERATOR) [address] [place] [address] [id number] 0 12/11/2019 11:37:05 12/11/2019 18:09:40 Past history of premature labor 616090978 Z87.51 Routine an tenatal care 371662078 Z34.91 Bereavement 26191110 Z63 .4 Sterilizat ion requested 153314938 Z30.2 Pt desires BTL. [id number] CRISTI CERVANTES [facility] (SOLVENT PROCESS EXTRACTOR OPERATOR) [address] [place] [address] [id number] 0 12/18/2019 10:05:35 12/21/2019 09:49:43 Past history of premature labor 084007302 Z87.51 [id number] MD Dena Singh [facility] (SOLVENT PROCESS EXTRACTOR OPERATOR) [address] [place] [address] [id number] 0 12/25/2019 10:10:53 12/28/2019 10:35:55 Past history of premature labor 774252344 Z87.51 [id number] MD Dena Singh HC (SOLVENT PROCESS EXTRACTOR OPERATOR) [address] [place] [address] [id number] 0 01/01/2020 11:47:16 01/04/2020 10:36:36 Past history of premature labor 587814533 Z87.51 [id number] CRISTI CERVANTES HC (SOLVENT PROCESS EXTRACTOR OPERATOR) [address] [place] [address] [id number] 0 01/08/2020 10:34:14 01/08/2020 11:43:10 Past history of premature labor 866151131 Z87.51 [id number] MD Dena Singh [facility] (SOLVENT PROCESS EXTRACTOR OPERATOR) [address] [place] [address] [id number] 01/15/2020 17:05:58 01/19/2020 15:25:04 Past history of premature labor 682437106 Z87.51 [id number] MD Dena Singh [facility] (SOLVENT PROCESS EXTRACTOR OPERATOR) [address] [place] [address] [id number] 0 01/22/2020 10:42:13 01/25/2020 08:25:05 Past history of premature labor 248824201 Z87.51 [id number] MD Dena Singh HC (SOLVENT PROCESS EXTRACTOR OPERATOR) [address] [place] [address] 01/29/2020 16:43:57 02/01/2020 08:44:27 Past history of premature labor 708997602 Z87.51 [id number] Brandon Kaur MD [facility] (SOLVENT PROCESS EXTRACTOR OPERATOR) [address] [place] [address] 00450-688 0 02/05/2020 11:28:16 02/05/2020 11:46:57 Past history of premature labor 766785845 Z87.51 [id number] CRISTI CERVANTES [facility] (SOLVENT PROCESS EXTRACTOR OPERATOR) [address] [place] [address] [id number] 0 02/12/2020 15:52:28 02/17/2020 08:41:33 Routine care 507258991 Z34.91 Routine care at 29 weeks. Pt not seen since 20 weeks gestation. She is getting weekly Little Browning. Denies contractio ns, LOF. Encouraged pt to take ASA for h/o pre-eclamp yeyo. Tdap given today. Order for 3rd trimester US given. Encouraged pt to schedule ZELALEM as baby is measuring small for gestationa l age. Pt to return Saturday morning for GTT. RTC in 2 weeks. Past pregn kris history of pre-eclampsia 1661900763 00838 Z87.59 Pt not taking ASA. Advised to start for h/o pre-eclamp yeyo. Past pregn kris history of premature labor 866066549 Z87.51 Pt denies contractio ns, LOF. Continue weekly Little Browning. Will recheck progestero ne levels today. Sterilizat ion requested 386790738 Z30.2 Pt desires BTL. Papers already signed. screening 3441 82278 Z36.9 Pt not fasting, she will return Saturday morning for 1 hour GTT. Insufficie nt care 2267071191 109 O09.33 Last visit 12/11. Bacterial vaginosis in 5622374178 21431 O23.599 Rubella non-immune 37610 4009 Z01.84 vaccinatio n. Low grade squamous intraepithelial lesion on cervical Papanicolaou smear 7690792037 9105 R87.612 Repeat pap 6 weeks . Small for gestational age fetus 709887161 O36.5999 Measuring around 25 weeks. F/u US, Dopplers. [id number] MD Dena Singh (SOLVENT PROCESS EXTRACTOR OPERATOR) [address] [place] [address] [id number] 0 02/22/2020 10:19:54 03/04/2020 11:04:08 Routine care 138289910 Z34.93 Past pregn kris history of premature labor 542501713 Z87.51 Past pregn kris history of pre-eclampsia 4470407999 [address] reptococcus carrier 2049007936 103 Z22.330 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 593125370 A60.00 Anemia of 2734 2004 O99.019 Sterilizat ion requested 459730552 Z30.2 [id number] MD Dena Singh (SOLVENT PROCESS EXTRACTOR OPERATOR) [address] [place] [address] [id number] 0 02/23/2020 13:43:32 03/04/2020 11:44:52 Routine care 265814710 Z34.93 Past pregn kris history of premature labor 205620351 Z87.51 steroid, tocolytics and antibiotic s Chronic id iopathic constipation 95654581 K59.[address] reptococcus carrier 4194002731 103 Z22.330 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 222722334 A60.00 [id number] [facility] (SOL[facility] PROCESS EXTRACTOR OPERATOR) [address] [place] [address] [id number] 0 02/24/2020 16:57:24 03/04/2020 12:15:41 Past history of premature labor 954586592 Z87.51 steroid, tocolytics and antibiotic s [id number] MD Dena Singh (SOLVENT PROCESS EXTRACTOR OPERATOR) [address] [place] [address] [id number] 0 02/25/2020 16:24:55 03/04/2020 12:31:59 Routine care 619583825 Z34.93 Past pregn kris history of premature labor 374846341 Z87.51 steroid, tocolytics and antibiotic s Pain in pelvis 86674860 R10.2 [id number] MD Dena Singh (SOLVENT PROCESS EXTRACTOR OPERATOR) [address] [place] [address] [id number] 0 03/09/2020 16:37:29 03/10/2020 11:49:10 Routine care 955342139 Z34.93 Past pregn kris history of premature labor 269519113 Z87.51 steroid, tocolytics and antibiotic s Insufficie nt care 1586787382 109 O09.33 Past pregn kris history of pre-eclampsia 0384286272 39418 Z87.59 [id number] MD Dena Singh (SOLVENT PROCESS EXTRACTOR OPERATOR) [address] [place] [address] [id number] 0 03/22/2020 10:56:16 03/23/2020 07:24:52 Routine care 883979847 Z34.93 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 reptococcus carrier 8109912820 103 Z22.330 Past pregn kris history of premature labor 779455544 Z87.51 steroid, tocolytics and antibiotic s Insufficie nt care 3834946767 109 O09.33 [id number] MD Dena Singh (SOLVENT PROCESS EXTRACTOR OPERATOR) [address] [place] [address] [id number] 0 04/12/2020 16:43:33 04/13/2020 09:14:16 Routine care 292399069 Z34.93 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 reptococcus carrier 3930807133 103 Z22.330 Past pregn kris history of pre-eclampsia 5847847701 79200 Z87.59 [id number] MD Dena Singh (SOLVENT PROCESS EXTRACTOR OPERATOR) [address] [place] [address] [id number] 0 04/19/2020 17:29:07 04/20/2020 06:43:31 Routine care 523591306 Z34.[address] reptococcus carrier 5280719069 103 Z22.330 Candidiasis of vagina 72 187275 B37.3 [id number] CRISTI CERVANTES (SOLVENT PROCESS EXTRACTOR OPERATOR) [address] [place] [address] [id number] 0 05/03/2020 10:26:46 05/04/2020 08:35:50 state 94706872 Z39.2 1 week visit. Discussed physical, mental, emotional effects. EPDS administer ed, negative. Continue vitamin. RTC in 2 weeks. Past pregn kris history of pre-eclampsia 0354841403 02007 Z87.59 History of pre-eclamp yeyo with 2nd (not last ) . No signs/symp toms today on exam. BP stable. Trace protein on UA today. F/u CMP, CBC. Patient advised to monitor for signs of worsening headache, vision changes, and to take and record blood pressure daily and when headaches occur. Education provided on appropriat e vs concerning BP. RTC 2 weeks. [id number] CRISTI CERVANTES HC (SOLVENT PROCESS EXTRACTOR OPERATOR) [address] [place] [address] [id number] 0 05/04/2020 10:49:47 05/05/2020 07:26:00 Tension-type headache 893588003 G44.209 Reassured pt. BP wnl. CMP wnl. Pt has not tried taking Tylenol for symptoms, will send to pharmacy. Take as prescribed . Counseled pt on headaches and advised that hormone changes, decreased sleep, and increased stress could all be contributi ng to symptoms. Advised getting plenty of rest, maintainin g healthy diet, and increasing water intake. Patient advised to monitor for signs of worsening headache, vision changes, and to take and record blood pressure daily. Will reassess at RTC. Iron defic iency anemia 88648109 D50.9 H/H 8.8/32.2. Advised pt restart taking daily iron supplement in addition to vitamin. Will recheck in 3 months. [id number] CRISTI CERVANTES HC (SOLVENT PROCESS EXTRACTOR OPERATOR) [address] [place] [address] [id number] 0 12/15/2020 11:21:42 12/20/2020 07:32:39 Bacterial vaginosis 655098895 N76.0 Take antibiotic s as prescribed , avoid alcohol while taking. Use mild, unscented soaps or plain water when washing, avoid any products with fragrance. Wear cotton underwear and loose fitting clothing. Wash only once per day, do not overscrub or douche. RTC if symptoms persist. [id number] CRISTI CERVANTES (SOLVENT PROCESS EXTRACTOR OPERATOR) [address] [place] [address] [id number] 0 01/19/2021 08:14:14 01/20/2021 08:13:55 Venereal disease screening 093412013 Z11.3 Unprotecte d sex and vaginal odor. Pt will present to clinic tomorrow morning to leave urine sample for testing. Safe sex practices discussed. [id number] MD Dena Delgado (Adult Med) [address] [place] [address] [id number] 0 06/02/2021 11:03:32 06/05/2021 15:38:34 History and physical examination, school 39699124 Z02.0 Oriented times 3 , ambulating without assistance , right handed, ROM of neck, shoulders, elbows, hands, hips , knees, feet and lower back are normal, steady tip-toe and heels gaits, normal hearing , normal vision, no color blindness, lungs clear to auscultati on , heart regular, no murmur , no gallop, abdomen soft, no mass, active bowel sound, no tenderness , no feet edema, tattoo on arms. Generalize d anxiety disorder 70380334 F41.1 Due to going to school, she is nervous about it, she agreed for the referral. Either [facility] or [facility] to have earier appointmen t. or [id number] MD Dena Delgado (Adult Med) [address] [place] [address] [id number] 0 12/05/2021 09:39:59 12/12/2021 14:15:40 Tuberculosis screening 334186976 Z11.1 [id number] MD Dena Delgado (Adult Med) [address] [place] [address] [id number] 0 12/12/2021 11:28:42 12/12/2021 11:57:26 Tuberculosis screening 309804874 Z11.1 [id number] MD Dena Delgado (Adult Med) [address] [place] [address] [id number] 0 12/19/2021 15:49:08 12/20/2021 13:17:55 Tuberculosis screening 806030059 Z11.1 [id number] MD Dena Delgado (Adult Med) [address] [place] [address] 84554-636 0 12/21/2021 10:01:47 01/09/2022 03:46:56 [id number] MD Dena Delgado (Adult Med) [address] [place] [address] [id number] 0 12/22/2021 10:15:56 12/25/2021 11:22:23 Immunization advised 738400453 Z71.9 Requires a hepatitis A vaccination 973177937 Z28.3 Varicella immune 6068211 08 Z78.9 [id number] CRISTI CERVANTES (SOLVENT PROCESS EXTRACTOR OPERATOR) [address] [place] [address] [id number] 0 08/23/2022 16:45:53 08/28/2022 09:08:59 Gynecologic examination 54525535 Z01.419 Cervical cancer screening: Last Pap Sep 2019 LSIL, updated todayBreas t cancer screening: Reviewed recommenda tions for initiation at age 40 with annual screening. Discussed SBESTI screening: routine nuswab, treat as needed. Safe sex practices discussed. Contracept ion: planning pregnancyD iet/exerci se: Counseled regarding importance of physical activity, healthy diet and appropriat e calcium intake.RTC in 1yr Acute vaginitis 50156374 N76.0 History and PE c/w recurrent bacterial infection, will treat empiricall y with metrogel. Follow up cultures. Vaginal hygiene discussed. Trying to conceive 81882 9001 Z31.9 Interested in trying for a baby in the near future. Counseled on daily PNV, cycle tracking, and timed intercours e. Administra tion of influenza vaccine 70940691 Z23 Annual flu shot administer ed. [id number] [facility] [address] [place] [address] [id number] 0 09/11/2022 15:29:07 09/12/2022 12:14:36 Pain of left wrist 2312872429 63722 M25.532 Had sport -related injury back in 10 years ago in playing [place] ball, then subsided for a while but it starts to active up and causes pain on the left wrist, distal ulnar. Discussed with patient, she agreed for med, x ray and referral. [id number] CRISTI CERVANTES (SOLVENT PROCESS EXTRACTOR OPERATOR) [facility] [place] [facility] [place] [address] 10/17/2022 13:55:54 10/18/2022 13:37:35 Vaginal discharge 936848071 N89.8 32yo F with a history of BV and yeast infection presents for abnormal vaginal discharge. She has tried left over metrogel w/o relief. Last nuswab was negative (08/23/22) . Malodorous discharge noted on exam today. Repeat cultures obtained, will wait for results to treat. Vaginal hygiene discussed and no douching/s oaking advised. Health Concerns Section Related Observation LastModified by Organization Detai ls LastModified Time None Recorded Concern Status LastModified by Organization Details LastModified Time None Recorded Advance Directives Directive N: Payers Insurance Date Sequence Insurance Name Policy Number Policy Cortez Covered Member ID Cortez Member ID Guarantor Name 03/06/2024 1 [facility] (MEDICAID HMO) [id number] Mauricio Helton [id number] Jasona Constantin 03/06/2024 [place] [employer] [employer] [place] [employer] Mauricio Helton [id number] Mauricio Helton 03/06/2024 1 [place] Mauricio Helton [id number] Jasona Constantin 02/15/2020 2 *SELF PAY* Deandre Helton 02/12/2020 SLIDING FEE SCHEDULE - DISCOUNT Mauricio Helton 03/06/2024 1 [place] [id number] Mauricio Helton [id number] Jasona Constantin 03/06/2024 2 [place] Mauricio Helton [id number] Jasona Constantin 03/06/2024 1 [place] Mauricio Helton [id number] Jasona Constantin 03/06/2024 1 [employer] [id number] Mauricio Helton [id number] Mauricio Helton 03[birth year]06[birth year]2024 2 [facility] (MEDICAID HMO) [id number] 003 Mauricio Helton [id number] Mauricio Helton Notes Date Note Type Note Provider Name and Address Organization Details Recorded Time 12/22/2021 text/html She was told to come her to get booster of hepatitis A and TDP, hower chicken pox, either she will get booster or blood Ab titer test to determine the immune status. She agreed. Lisa Alfaro MD Attn: [address]ing[address] [place], [address], [facility] 12/22/2021 16:32:41 08/23/2022 text/html Annual GYNReport ed bypatient.History:p yung in the near future Menstrual cycle:Normal menses (07/26/22) Urinary symptoms:No hematuria; No incontinence Vulva:No genital lesion Vagina:Foul-smellin g;White;Vaginal itching Breast:No breast pain; No breast lump; No nipple discharge Current Contraception:Monog amous relationship Sexual complaints:No sexual complaints; No pain during intercourse; Normal libido Menopausal Symptoms:No menopausal symptoms; Normal vaginal lubrication Psychological symptoms:No depression; No anxiety; No PMDD Preventive measures:Encourage self breast examination; Encourage regular exercise; Encourage no tobacco use; Encourage regular mammograms starting age 40; Followed with yearly pap smears; History of abnormal pap smear/cervical dysplasia 31yo F presenting for WWE. She is interested in trying for one more child in the near future. She reports mild discharge and itching, symptoms similar to prior bacterial infections. CRISTI CERVANTES Attn: Accounting[address] [place], [address], [facility] 08/24/2022 16:33:50 09/11/2022 text/html Office visit,NKD A. old sport -related injury about 10 years ago, now acting up. Right -handed, not . Pain all the time. No recent injury. Lisa Alfaro MD Attn: Accounting[address] [place], [address], [facility] 09/11/2022 18:09:34 10/17/2022 text/html 32yo F with a history of BV and yeast infection presents for abnormal vaginal discharge. Last visit, patient was treated for BV and used the metronidazole gel. She states her symptoms somewhat improved after the gel however quickly returned. Since then she has had urinary frequency, slight odor in her urine, fishy vaginal odor, and white discharge. She denies dysuria, hematuria, bleeding, fever. Patient states she has been doing salt baths with vinegar and tends to soak in the bath for long periods of time. She thinks this could possibly attribute to her vaginal symptoms. Patient's LMP was 09/17/22 and she took several tests at home on 09/30 which were positive. She denies bleeding, LOF, cramping at this time. CRISTI CERVANTES Attn: Accounting[address] [place], [address], [facility] 10/18/2022 07:21:04 OBGyn Episode Ob Episode Information Episode Created Date Number of Fetuses Patient Bloodtype Patient rh Status Prepregnancy Weight lbs Domestic Partner Domestic Partner Phone Father Name Nail Professional Status 09/15/20 19 1 CLOSED Fetus Data First Name Last Name Admitted to NICU Weight (g) Sex Living Outcome Pediatric Complications Fetus ID Race Codes Race Delivery Type 2267.96 F Prematur e 13681 Standard Vaginal Delivery Supa Calculation Initial Supa Date Initial Exam Date Initial Exam Provider Initial Ultrasound Date Last Menstrual Period Date Ultra Sound Weeks Gestation 0 Eighteen To Twenty Week Supa Update Ultra Sound Date Fundal Height At Umbil Quickening Date Ultra Sound Latest Weeks Gestation Final Supa Confirmed By Final Supa Confirmed Date Final Supa Date Ultra Sound Latest Days Gestation 0 0 Menstrual History Last Menstrual Date Menses Monthly On Bcp Conception Prior Menses Frequency Hcg Plus Date Menarche Onset Age Delivery Information Delivery Date Delivery Type Labor Anesthesia Weeks Gestation Incision Type Labor Labor Length Hrs Delivered By Post Complications Tubal Sterilization Discharge Date Comments 4 Regional-Ep idural 35 6 baby girl, Krzysztof Discharge Information Feeding Method Contraceptive Method Maternal HG B and HCT Levels Ob Episode Information Episode Created Date Number of Fetuses Patient Bloodtype Patient rh Status Prepregnancy Weight lbs Domestic Partner Domestic Partner Phone Father Name Nail Professional Status 09/15/20 19 1 B Positive CLOSED Fetus Data First Name Last Name Admitted to NICU Weight (g) Sex Living Outcome Pediatric Complications Fetus ID Race Codes Race Delivery Type Elisa Rain e false 3458.63 9 M true Full Term PEDS Dr. Simmons @ [facility], [place] [id number] Black or Afric an Ameri can Vaginal Problems Problem Notes 02/22/2020 yes to epidural, yes to circumcision, breast/bottle, Dr. Perry, [facility] Syl[facility] before BTL - baby boy Elisa Culver for his name mayur Odomerson [facility] Problem Name Start Date End Date Resolution Snomed Code Not e Bacterial vaginosis in 09/22/2019 [id number] Rubella non-immune 09/22/2019 [id number] Anemia of 02/15/2020 [id number] Sterilization requested 12/16/2019 [id number] PAPERS SIGNED, NOT YET DATED Past history of premature labor 11/13/2019 [id number] Weekly Ma prakash injections starting at 20 weeks Low grade squamous intraepithelial lesion on cervical Papanicolaou smear 09/22/2019 [id number] Repeat pap 6 weeks Genital herpes simplex type 2 09/22/2019 [id number] Insufficient care 02/12/2020 [id number] Candidiasis of vagina 02/29/2020 [id number] Past history of pre-eclampsia 12/16/2019 [id number] postpart um Group B Streptococcus carrier 09/22/2019 [id number] Supa Calculation Initial Supa Date Initial Exam Date Initial Exam Provider Initial Ultrasound Date Last Menstrual Period Date Ultra Sound Weeks Gestation 04/29/2020 09/15/2019 [email or web address] 10/26/2019 07/12/2019 13 Eighteen To Twenty Week Supa Update Ultra Sound Date Fundal Height At Umbil Quickening Date Ultra Sound Latest Weeks Gestation Final Supa Confirmed By Final Supa Confirmed Date Final Supa Date Ultra Sound Latest Days Gestation 10/26/20 19 13 [email or web address] 03/09/2020 020 3 Pre-koko Flowsheet Flowsheet Date 09/15/2019 Jaimes Score Blood Edema Fundus Height Fundus Units Glucose Ketones Leukocytes Nitrite Labor Signs Protein Cervic Dilation Cervic Effacement Cervic Station trace none 9 wks none negative 1+ Type Weight in lbs Pre/Post Dialysis Refused Weight 133.216754558680 BP Diastolic BP Location Tested BP Systolic BP Type 60 110 sitting Fetus Heart Rate Present Fetus Movement Comments NOB labs today. Order for 1s t trimester US given. Flowsheet Date 11/13/2019 Jaimes Score Blood Edema Fundus Height Fundus Units Glucose Ketones Leukocytes Nitrite Labor Signs Protein Cervic Dilation Cervic Effacement Cervic Station 16 wks none Type Weight in lbs Pre/Post Dialysis Refused Weight 134.639271295294 BP Diastolic BP Location Tested BP Systolic BP Type 56 90 sitting Fetus Heart Rate Present A 147 Present Fetus Movement Comments Pt unable to provide urine t lluvia. Flowsheet Date 12/11/2019 Jaimes Score Blood Edema Fundus Height Fundus Units Glucose Ketones Leukocytes Nitrite Labor Signs Protein Cervic Dilation Cervic Effacement Cervic Station neg none 20 wks none negative none neg Type Weight in lbs Pre/Post Dialysis Refused Weight 136.494429508872 BP Diastolic BP Location Tested BP Systolic BP Type 56 100 Fetus Heart Rate Present A 147 Present Fetus Movement Comments H/o labor - start we ekly Aurelia injections. US to evaluate growth and cervical length. GTT next visit. Flowsheet Date 12/11/2019 Jaimes Score Blood Edema Fundus Height Fundus Units Glucose Ketones Leukocytes Nitrite Labor Signs Protein Cervic Dilation Cervic Effacement Cervic Station Type Weight in lbs Pre/Post Dialysis Refused Weight 136.795182194236 BP Diastolic BP Location Tested BP Systolic BP Type 56 100 sitting Fetus Heart Rate Present Fetus Movement Comments Flowsheet Date 12/18/2019 Jaimes Score Blood Edema Fundus Height Fundus Units Glucose Ketones Leukocytes Nitrite Labor Signs Protein Cervic Dilation Cervic Effacement Cervic Station Type Weight in lbs Pre/Post Dialysis Refused BP Diastolic BP Location Tested BP Systolic BP Type Fetus Heart Rate Present Fetus Movement Comments Flowsheet Date 12/25/2019 Jaimes Score Blood Edema Fundus Height Fundus Units Glucose Ketones Leukocytes Nitrite Labor Signs Protein Cervic Dilation Cervic Effacement Cervic Station Type Weight in lbs Pre/Post Dialysis Refused BP Diastolic BP Location Tested BP Systolic BP Type Fetus Heart Rate Present Fetus Movement Comments Flowsheet Date 01/01/2020 Jaimes Score Blood Edema Fundus Height Fundus Units Glucose Ketones Leukocytes Nitrite Labor Signs Protein Cervic Dilation Cervic Effacement Cervic Station Type Weight in lbs Pre/Post Dialysis Refused BP Diastolic BP Location Tested BP Systolic BP Type Fetus Heart Rate Present Fetus Movement Comments Flowsheet Date 01/08/2020 Jaimes Score Blood Edema Fundus Height Fundus Units Glucose Ketones Leukocytes Nitrite Labor Signs Protein Cervic Dilation Cervic Effacement Cervic Station Type Weight in lbs Pre/Post Dialysis Refused BP Diastolic BP Location Tested BP Systolic BP Type Fetus Heart Rate Present Fetus Movement Comments Flowsheet Date 01/15/2020 Jaimes Score Blood Edema Fundus Height Fundus Units Glucose Ketones Leukocytes Nitrite Labor Signs Protein Cervic Dilation Cervic Effacement Cervic Station Type Weight in lbs Pre/Post Dialysis Refused BP Diastolic BP Location Tested BP Systolic BP Type Fetus Heart Rate Present Fetus Movement Comments Flowsheet Date 01/22/2020 Jaimes Score Blood Edema Fundus Height Fundus Units Glucose Ketones Leukocytes Nitrite Labor Signs Protein Cervic Dilation Cervic Effacement Cervic Station Type Weight in lbs Pre/Post Dialysis Refused BP Diastolic BP Location Tested BP Systolic BP Type Fetus Heart Rate Present Fetus Movement Comments Flowsheet Date 01/29/2020 Jaimes Score Blood Edema Fundus Height Fundus Units Glucose Ketones Leukocytes Nitrite Labor Signs Protein Cervic Dilation Cervic Effacement Cervic Station Type Weight in lbs Pre/Post Dialysis Refused BP Diastolic BP Location Tested BP Systolic BP Type Fetus Heart Rate Present Fetus Movement Comments Flowsheet Date 02/05/2020 Jaimes Score Blood Edema Fundus Height Fundus Units Glucose Ketones Leukocytes Nitrite Labor Signs Protein Cervic Dilation Cervic Effacement Cervic Station Type Weight in lbs Pre/Post Dialysis Refused BP Diastolic BP Location Tested BP Systolic BP Type Fetus Heart Rate Present Fetus Movement Comments Flowsheet Date 02/12/2020 Jaimes Score Blood Edema Fundus Height Fundus Units Glucose Ketones Leukocytes Nitrite Labor Signs Protein Cervic Dilation Cervic Effacement Cervic Station neg none 25 cm none negative none neg Type Weight in lbs Pre/Post Dialysis Refused Weight 146.966694013150 BP Diastolic BP Location Tested BP Systolic BP Type 56 98 sitting Fetus Heart Rate Present A 154 Present Fetus Movement A Yes Comments Routine care at 29 weeks. Pt not seen since 20 weeks gestation. She is getting weekly [place]. Denies contractions, LOF. Encouraged pt to take ASA for h/o pre-eclampsia. Tdap given today. Order for 3rd trimester US given. Encouraged pt to schedule ZELALEM as baby is measuring small for gestational age. Pt to return Saturday morning for GTT. RTC in 2 weeks. Flowsheet Date 02/22/2020 Jaimes Score Blood Edema Fundus Height Fundus Units Glucose Ketones Leukocytes Nitrite Labor Signs Protein Cervic Dilation Cervic Effacement Cervic Station neg none 30 cm none negative none neg Type Weight in lbs Pre/Post Dialysis Refused With clothes 151.830828533834 BP Diastolic BP Location Tested BP Systolic BP Type 60 100 sitting Fetus Heart Rate Present A 144 Present Fetus Movement A Yes Comments Patient notified about [place] [facility] shortage, and on diversion. Patient was given options for delivery and chose to deliver at [facility] Information given, phone number, sent. Flowsheet Date 02/23/2020 Jaimes Score Blood Edema Fundus Height Fundus Units Glucose Ketones Leukocytes Nitrite Labor Signs Protein Cervic Dilation Cervic Effacement Cervic Station neg none 27 cm negative Uterine Contract ions 0cm 0% -3 Type Weight in lbs Pre/Post Dialysis Refused Weight 149.325753380971 BP Diastolic BP Location Tested BP Systolic BP Type 56 118 sitting Fetus Heart Rate Present A 145 Present Fetus Movement A Yes Comments constipation/contractons/ pt l protocol Flowsheet Date 02/24/2020 Jaimes Score Blood Edema Fundus Height Fundus Units Glucose Ketones Leukocytes Nitrite Labor Signs Protein Cervic Dilation Cervic Effacement Cervic Station Type Weight in lbs Pre/Post Dialysis Refused BP Diastolic BP Location Tested BP Systolic BP Type Fetus Heart Rate Present A 145 Fetus Movement Comments steroid 1st dose Flowsheet Date 02/25/2020 Jaimes Score Blood Edema Fundus Height Fundus Units Glucose Ketones Leukocytes Nitrite Labor Signs Protein Cervic Dilation Cervic Effacement Cervic Station neg none 30 wks none negative none neg Type Weight in lbs Pre/Post Dialysis Refused With clothes 151.499115222360 BP Diastolic BP Location Tested BP Systolic BP Type 66 106 sitting Fetus Heart Rate Present A 145 Present Fetus Movement A Yes Comments steroid 2nd dose Flowsheet Date 03/09/2020 Jaimes Score Blood Edema Fundus Height Fundus Units Glucose Ketones Leukocytes Nitrite Labor Signs Protein Cervic Dilation Cervic Effacement Cervic Station neg none 32 cm none negative none neg 0cm 0% - 4 Type Weight in lbs Pre/Post Dialysis Refused With clothes 150.864378651711 BP Diastolic BP Location Tested BP Systolic BP Type 56 104 sitting Fetus Heart Rate Present A 144 Present Fetus Movement A Yes Comments ffn/ wt/wlb Flowsheet Date 03/22/2020 Jaimes Score Blood Edema Fundus Height Fundus Units Glucose Ketones Leukocytes Nitrite Labor Signs Protein Cervic Dilation Cervic Effacement Cervic Station neg none 30 cm none negative Uterine Contract ions neg 0cm 40% -4 Type Weight in lbs Pre/Post Dialysis Refused Stated 151.963314343465 BP Diastolic BP Location Tested BP Systolic BP Type 60 100 sitting Fetus Heart Rate Present A 144 Present Fetus Movement A Yes Comments wtc/wlb Flowsheet Date 04/12/2020 Jaimes Score Blood Edema Fundus Height Fundus Units Glucose Ketones Leukocytes Nitrite Labor Signs Protein Cervic Dilation Cervic Effacement Cervic Station neg none 37 wks none negative none neg 1cm 50% - 4 Type Weight in lbs Pre/Post Dialysis Refused With clothes 159.614646183521 BP Diastolic BP Location Tested BP Systolic BP Type 66 98 sitting Fetus Heart Rate Present A 162 Present Fetus Movement A Yes Comments wtc/wlb; Patient notified ab out [place] Nursing shortage, and on diversion. Patient was given options for delivery and chose to deliver at [facility] Information given, phone number, sent. Flowsheet Date 04/19/2020 Jaimes Score Blood Edema Fundus Height Fundus Units Glucose Ketones Leukocytes Nitrite Labor Signs Protein Cervic Dilation Cervic Effacement Cervic Station neg none 38 wks none negative Cramping neg 1cm 90 % -2 Type Weight in lbs Pre/Post Dialysis Refused With clothes 158.563343624710 BP Diastolic BP Location Tested BP Systolic BP Type 66 108 sitting Fetus Heart Rate Present A 144 Present Fetus Movement A Yes Comments IOL Dr Munoz Flowsheet Date 05/03/2020 Jaimes Score Blood Edema Fundus Height Fundus Units Glucose Ketones Leukocytes Nitrite Labor Signs Protein Cervic Dilation Cervic Effacement Cervic Station Type Weight in lbs Pre/Post Dialysis Refused With clothes 144.364778473541 BP Diastolic BP Location Tested BP Systolic BP Type 78 L arm 116 sitting Fetus Heart Rate Present Fetus Movement Comments Menstrual History Last Menstrual Date Menses Monthly On Bcp Conception Prior Menses Frequency Hcg Plus Date Menarche Onset Age 0907/12/2019 true false Genetic Screening And Infection History Question Response Note Patient's Age Will Be 35 Years Or Older At Estim ated Date of Delivery false Thalassemia (Spanish, Congolese, Mediterranean, Or Background): MCV < 80 false Neural Tube Defect (Meningomyelocele, Spina Bifi da, Or Anencephaly) false Congenital Heart Defect false Down Syndrome false Jer-Sachs (eg, Mormonism, Cajun, Jordanian-Nicaraguan) f alse Amanda Disease false Sickle Cell Disease Or Trait () false Hemophilia Or Other Blood Disorders false Muscular Dystrophy false Cystic Fibrosis false Manati's Chorea false Mental Retardation/Autism false If Yes, Was Person Tested For Fragile X? false Other Inherited Genetic Or Chromosomal Disorder false Maternal Metabolic Disorder (eg, Type 1 Diabetes , PKU) false Patient Or Baby's Father Had A Child With Defects Not Listed Above false Recurrent Loss, Or A Stillbirth false Medications (including Suppl ements, Vitamins, Herbs, OTC Drugs), Illicit/Recreational Drugs, Alcohol false If Yes, Agent(s) And Strength/Dosage false Any Other Genetic History false Live With Someone With TB Or Exposed To TB false Patient Or Partner Has History Of Genital Herpes true pt Rash Or Viral Illness Since Last Menstrual Perio d false History Of STD, Gonorrhea, Chlamydia, HPV, Syphi lis false Other Infection History true GBS History of HIV false History of Hepatitis false Prior GBS-infected child false Plans and Education First Trimester Discussed Date Discussion Item Discussion Note Discuss ed By 11/13/2019 Anticipated course o f care [email or web address] 11/13/2019 Alcohol [email or web address] 11/13/2019 Intimate partner violence emerita [email or web address] 11/13/2019 Environmental/work hazards j [email or web address] 11/13/2019 Screening for aneuploidy jco [email or web address] 11/13/2019 Nutrition counseling ; special diet; dietary precautions (mercury, listeriosis) [email or web address] 11/13/2019 Childbirth classes/h ospital facilities [email or web address] 11/13/2019 HIV and other routin e tests [email or web address] 11/13/2019 Risk factors identif ied by history [email or web address] 11/13/2019 Weight gain counseling jcort [email or web address] 11/13/2019 Exercise [email or web address] 11/13/2019 Teratogens [email or web address] 11/13/2019 Use of any medicatio ns (including supplements, vitamins, herbs, or OTC drugs) [email or web address] 11/13/2019 BREAST/BOTTLE FE EDING COMBO [email or web address] 11/13/2019 Sexual activity [email or web address] 11/13/2019 Tobacco/smoking cess ation counseling (ask, advise, assess, assist, and arrange) [email or web address] 11/13/2019 Illicit/recreational drugs j [email or web address] 11/13/2019 Dental care GIVEN DENTAL CONSENT [email or web address] 11/13/2019 Travel [email or web address] 11/13/2019 Seat belt use [email or web address] 11/13/2019 Indications for ultrasonography [email or web address] 11/13/2019 Avoidance of saunas or hot tubs [email or web address] 11/13/2019 Toxoplasmosis precau tions (cats/raw meat) [email or web address] Second Trimester Discussed Date Discussion Item Discussion Note Discuss ed By 12/18/2019 Selecting a care provider MAGDALENA PERRY [facility] 12/18/2019 family planning/tubal sterilization PPBC [place] before- PPBILATERAL SALPINGECTOMY PAPERS SIGNED NOT [facility]ET DATED [facility] Third [facility] Discussed Date Discussion Item Discussion Note Discuss ed By 02/22/2020 Anesthesia plans 02/22/2020 yes to karmen stokes [facility]-r[facility] 12/18/2019 [facility] 12/18/2019 COMBO BREAST/BOTTLE FEEDING [facility] Delivery Information Delivery Date Delivery Type Labor Anesthesia Weeks Gestation Incision Type Labor Labor Length Hrs Delivered By Post Complications Tubal Sterilization Discharge Date Comments 0 Induce d None 39.[address] Christen Lin None false 04/28/2020 Discharge Information Feeding Method Contraceptive Method Maternal HG B and HCT Levels Bottle none Ob Episode Information Episode Created Date Number of Fetuses Patient Bloodtype Patient rh Status Prepregnancy Weight lbs Domestic Partner Domestic Partner Phone Father Name Nail Professional Status 09/15/20 19 1 CLOSED Fetus Data First Name Last Name Admitted to NICU Weight (g) Sex Living Outcome Pediatric Complications Fetus ID Race Codes Race Delivery Type 3543.46 0704 M Prematur e [id number] Standard Vaginal Delivery Supa Calculation Initial Supa Date Initial Exam Date Initial Exam Provider Initial Ultrasound Date Last Menstrual Period Date Ultra Sound Weeks Gestation 0 Eighteen To Twenty Week Supa Update Ultra Sound Date Fundal Height At Umbil Quickening Date Ultra Sound Latest Weeks Gestation Final Supa Confirmed By Final Supa Confirmed Date Final Supa Date Ultra Sound Latest Days Gestation 0 0 Menstrual History Last Menstrual Date Menses Monthly On Bcp Conception Prior Menses Frequency Hcg Plus Date Menarche Onset Age Delivery Information Delivery Date Delivery Type Labor Anesthesia Weeks Gestation Incision Type Labor Labor Length Hrs Delivered By Post Complications Tubal Sterilization Discharge Date Comments 8 [facility] idural 35 3 baby boy , mayur Jamesbrody Discharge Information Feeding Method Contraceptive Method Maternal HG B and HCT Levels
--- OUTSIDE RECORDS SUMMARY | 2025-05-11 15:45 | XMS_ITS | Clinical Summary ---
Author Organization [facility] Address [address] [place] [address] Care Team Providers Care Harbor Engineer Name Role Phone Unavailable Primary Care Provider Unavailabl e Source Comments [facility],non-owned Affiliates and Associated Physician Practices is amultiple site organization consisting of ambulatory clinics and hospital sitesin [place], [place], [place] and [place]. This disclosure is being madepursuant to the Care Everywhere program and may not contain all information available regarding this patient. Last updated 18.[facility] Allergies No known active allergies Medications * Be aware that medications may not be up to date on this document. Alwaysverify current medications with the patient. VITAMINS PO Take 1 Tab by mouth. Active acyclovir (ZOVIRAX) 800 MG tablet Take 800 mg by mouth once daily Active docusate sodium (COLACE) 100 MG capsule Take 1 capsule by mouth 2 times daily 30 capsule 1 8 Active Additional Information Patient not taking.Reported on 03/17/2020 polyethylene glycol 3350 (MIRALAX) packet Take 17 g by mouth once daily 30 packet 1 8 Active Additional Information Patient not taking.Reported on 10/23/2018 Blood Pressure Monitoring (BLOOD PRESSURE CUFF) MISC Use 1 Units once daily Check your blood pressure daitylory, after you've been sitting and resting for 15 min 1 Each 0 Active Additional Information Patient not taking.Reported on 03/17/2020 aspirin EC (ECOTRIN) 81 MG tablet Take 81 mg by mouth once daily Active Active Problems Problem Noted Date Diagnosed Date Vaginal pain 03/20/2020 Seropositive for herpes simplex 2 infection 02/10 Rubella non-immune status, antepartum 02/29/2020 GBS (group B Streptococcus c arrier), +RV culture, currently 02/29/2020 Hx of delivery, currently 02/28 Anemia during in third trimester 12/24 Resolved Problems Problem Noted Date Diagnosed Date Resolved Date Threatened labor at term 04/09/2020 Severe hypertension 02/05/2018 02/29/20 20 Threatened labor 11/08/2017 02/29/2020 Supervision of normal 09/20/2014 02/29/2020 Abscess 08/10/2014 02/29/2020 Overview (08/10/2014): Buttock and hip abscesses in early , labial abcess 08/10/14 History of delivery, currently in third trimester 02/29/2020 Encounter for anatomic survey 02/29/2020 Immunizations Immunization Administration Dates Next Due INFLUENZA VACCINE 09/11/2014 Family History Medical History Relation Name Comments Diabetes Father Hypertension Father Relation Name Status Comments Father Mother Alive Social History Tobacco Use Types Packs/Day Years Used Date Smoking Tobacco: Never Smokeless Tobacco: Never Alcohol Use Standard Drinks/Week Comments No 0 (1 standard drink = 0.6 oz pur e alcohol) Comments No Sex and Gender Information Value Date Recorded Sex Assigned at Not on file Legal Sex Female 10:52 AM CDT Gender Identity Female 10/18/2017 10:50 PM CLIENT CARE REPRESENTATIVE Sexual Orientation Not on file Last Filed Vital Signs Vital Sign Reading Time Taken Comments Blood Pressure 109/68 04/09/2020 2:49 AM CDT Pulse 92 02/29/2020 9:00 AM CDT Temperature 36 C (96.8 F) 04/09/2020 2:14 AM CDT Respiratory Rate 17 04/09/2020 2:49 AM CDT Oxygen Saturation 99% 02/06/2018 7:31 PM CDT Inhaled Oxygen Concentration - - Weight 70.7 kg (155 lb 12.8 oz) 04/09/2020 2:14 AM CDT Height 160 cm (5' 3) 04/09/2020 2:14 AM CDT Body Mass Index 27.6 04/09/2020 2:14 AM CDT Plan of Treatment Health Maintenance Due Date Last Done Comments HIV SCREENING 2007 HEPATITIS C SCREENING 08/31/2010 DTAP/TDAP/TD VACCINES (1 - Tdap) 2011 HEPATITIS B VACCINE (1 of 3 - 19+ 3-dose series) 2011 PAP SMEAR 2013 COVID-19 VACCINE (1 - 2023-2 5 season) 2024 DEPRESSION SCREENING 11/11/2024 INFLUENZA VACCINE (Season Ended) 2025 08/23/2022, 09/11/2014 ZOSTER VACCINE (1 of 2) 2042 HIB VACCINE Aged Out No longer eligi ble based on patient's age to complete this topic HPV VACCINE Aged Out No longer eligi ble based on patient's age to complete this topic MENINGOCOCCAL (Group B) VACCINE SHARED DECISION-MAKING Aged Out No longer eligible based on patient's age to complete this topic MENINGOCOCCAL GROUPS A/C/Y/W VACCINE Aged Out No longer eligible b ased on patient's age to complete this topic PNEUMOCOCCAL VACCINE Aged Out No long er eligible based on patient's age to complete this topic Procedures Procedure Name Priority Date/Time Associated Diagnosis Comments GLUCOSE CHALLENGE Routine 09/18/2014 2:5 4 PM CLIENT CARE REPRESENTATIVE from Last 3 Months or Most Recently Relevant to Health Maintenance Results * GLUCOSE CHALLENGE (09/18/2014 2:54 PM CLIENT CARE REPRESENTATIVE) [facility] Glucose Challenge 123 64 - 140 mg/dL 09/18/2014 3:35 PM CLIENT CARE REPRESENTATIVE [facility] Blood BLOOD SPECIMEN / Unknown Venipuncture / Unknown 09/18/2014 2:54 PM CLIENT CARE REPRESENTATIVE 09/18/2014 3:18 PM CLIENT CARE REPRESENTATIVE us Bailey Harvey MD LAB - CHEMISTRY ORDERABLES Final Result [facility] [address] [place] [address] from Last 3 Months or Most Recently Relevant to Health Maintenance Insurance MEDICAID - [place] [facility] MEDICAID [facility] Advance Directives * Full Code (Latest Code Status on File) Date Activated Date Inactivated Comments 04/09/2020 2:24 AM 04/09/2020 4:04 AM * Full Code Date Activated Date Inactivated Comments 03/20/2020 11:46 AM 03/20/2020 1:44 PM * Full Code Date Activated Date Inactivated Comments 03/17/2020 8:16 PM 03/17/2020 11:15 PM * Full Code Date Activated Date Inactivated Comments 02/05/2018 6:54 PM 02/06/2018 11:06 PM * Full Code Date Activated Date Inactivated Comments 01/30/2018 9:47 AM 02/01/2018 2:57 PM
[2025-05-11 21:54] LABS: Beta HCG Quantitative 11.16 mIU/ML
== END 2025-05-11 15:42 | disposition home or self-care (01) ==
LOC: ANHLAB 15:42
PROVIDERS: Visit Provider Student in an Organized Health Care Education/Training Program
DX: Z98.890 Other specified postprocedural states (principal)
CPT/HCPCS: 36415; 84702

== ENCOUNTER 2025-05-21 10:38 | Outpatient (CLI) | payer OTHER, MEDICAID, SELFPAY ==
--- NOTE | ~2025-05-21 | US_ITS ---
Pelvic ultrasound. Clinical History: Other postprocedural state Technique: Realtime transabdominal and transvaginal scanning of the pelvis was performed. Color flow Doppler and Doppler spectral analysis were performed. Findings: The uterus is anteverted. The endometrial stripe has a thickness of 10 mm. There is a 1.9 x 0.7 x 1.8 cm irregular hypoechoic area in the usual stripe, possibly focal fluid blood products or other fluid.. The right ovary measures 2.2 x 1.4 x 2.5 cm. No significant right ovarian or adnexal mass is seen. The left ovary measures 2.8 x 2.4 x 3.4 cm. 1.9 cm left ovarian cyst present with a single septation. There is no evidence of free fluid in the cul de sac. Impression: 1.9 x 0.7 x 1.8 cm area of blood products or other hypoechoic fluid in the endometrial cavity. Correl ate clinically. Consider hysteroscopy as indicated. Minimally complex 1.9 cm left ovarian cyst. Reviewed, dictated and finalized at location . Impression: 1.9 x 0.7 x 1.8 cm area of blood products or other hypoechoic fluid in the endo metrial cavity. Correlate clinically. Consider hysteroscopy as indicated. Minimally complex 1.9 cm left ovarian cyst.
== END 2025-05-21 10:39 | disposition home or self-care (01) ==
PROVIDERS: PCP Student in an Organized Health Care Education/Training Program; Visit Provider Student in an Organized Health Care Education/Training Program
DX: R93.89 Abnormal findings on diagnostic imaging of other specified body structures (principal); Z98.890 Other specified postprocedural states
CPT/HCPCS: 76830; 76856

== ENCOUNTER 2025-05-24 16:13 | Outpatient (CLI) | payer OTHER, MEDICAID, SELFPAY ==
--- OUTSIDE RECORDS SUMMARY | 2025-05-24 16:17 | XMS_ITS | Data Portability ---
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 Plan of Treatment Reminders Order Date Submit Date Provider Last Modified By Organization Details Last Modified Time Details Appointments None recorded. Lab vaginal pathogens panel, JANET+probe , vaginal fluid 2021 022 [facility] [facility], [address] [place] [address], [facility] [address], [address], 2 03:07:52 urinalysi s, dipstick 2021 022 [email or web address] 1 In-Office Order, Internal Use Only DO Not Attach Compendium DO Not Attach Compendium, Do Not Delete/merge, [id number] 2 07:18:26 pap, IG + reflex HPV 2021 022 DBA_PATCH_2 [id number] [facility], [address] [place], [address], [address], 3 03:37:16 test, urine 2021 022 [email or web address] 1 In-Office Order, Internal Use Only DO Not Attach Compendium DO Not Attach Compendium, Do Not Delete/merge, [id number] 2 17:30:42 bacterial vaginosis score, JANET+probe , vaginal fluid (OBS) 2021 022 [employer] [facility], [address], [address], [place], [address], 16:10:41 varicella zoster virus IgG Ab, QN, IA, serum 2021 [facility], [address], [address], [place], [address], 19:07:49 Referral orthopedi c surgeon referral 2021 ATHENAFAX Tc Conley MD, [address] [facility] [address], [facility], [place], [address], 15:44:04 physical therapist referral 2021 ATHENAFAX Not available 11:26:47 Procedures None recorded. Surgeries None recorded. Imaging XR, wrist, 3 or more view [address] ([employer]), [address] [place], [address], 12:14:36 Medication Orders Aspercrem e (lidocain e HCl) 4 % topical 2021 [id number], [address], [place], [id number], 14:10:15 meloxicam 7.5 mg tablet 2021 [facility] #91953, [address], [place], [id number], 14:09:22 28 mg iron-800 mcg tablet 2021 [facility] #97603, [address], [place], [id number], 17:17:18 metronida zole 0.75 % (37.5 mg/5 gram) vaginal gel 2021 022 [facility]25975, [address] [place], [place], [id number], 14:09:31 Patient TargetsNo targets recorded. Patient Instructions Encounter Date Encounter Id Patient Instructions Last Modified By Organization Details Last Modified Time 08/23/2022 [id number] Well Visit, Ages 18 to 65: Care Instructions Not available 08/23/2022 17:16:15 10/17/2022 [id number] Patient's LMP wa s 09/17/22 and she [...] DO Not Attach Compendium, Do Not Delete/merge, [id number] 12/07/2021 10:25:46 12/19/19 22 12/19/2021 PPD (sean fied prote in deriv ative ), skin test Result NOT READ Not Available In-Office Order Internal Use Only DO Not Attach Compendium DO Not Attach Compendium, Do Not Delete/merge, [id number] 12/12/2021 11:48:39 12/21/19 22 12/21/2021 PPD (sean fied prote in deriv ative ), skin test Result Negati ve Not Available In-Office Order Internal Use Only DO Not Attach Compendium DO Not Attach Compendium, Do Not Delete/merge, [id number] 12/21/2021 14:11:24 12/22/19 22 12/23/2021 VARIC SAL- [...] stage of disea se. Not Available [facility] ([facility]) [address] [facility], [place], [address], 12/23/2021 19:07:49 08/23/2008/24/2022 IGP,A PTIMA HPV,A GE GDLN age gdln acog testing 21-29 Not Available [facility] ([facility]) [address] [place], [address], 08/29/2022 11:37:49 08/23/20 22 08/27/2022 NUSWA B VG+, HSV atopobium vaginae LOW - 0 score Not Available [facility] ([facility]) [address] [place], [address], 08/27/2022 16:10:41 08/23/20 22 08/27/2022 NUSWA B VG+, HSV bvab 2 LOW - 0 score Not Available [facility] ([facility]) [address] [place], [address], 08/27/2022 16:10:41 08/23/20 22 08/27/2022 NUSWA B [...] Drug Admin istra tion. Not Available [facility] ([facility]) [address] [place], [address], 08/27/2022 16:10:41 08/23/20 22 08/27/2022 NUSWA B VG+, HSV john albicans, JANET NEGATI VE negati ve Not Available [facility] ([facility]) [address] [place], [address], 08/27/2022 16:10:41 08/23/2008/27/2022 NUSWA B VG+, HSV john glabrata, JANET NEGATI VE negati ve Not Available [facility] ([facility]) [address] [place], [address], 08/27/2022 16:10:41 08/23/20 22 08/27/2022 NUSWA B VG+, HSV trich vag by JANET NEGATI VE negati ve Not Available [facility] ([facility]) [address] [place], [address], 08/27/2022 16:10:41 08/23/20 22 08/27/2022 NUSWA B VG+, HSV chlamydia trachomatis, JANET NEGATI VE negati ve Not Available [facility] ([facility]) [address] [place], [address], 08/27/2022 16:10:41 08/23/20 22 08/27/2022 NUSWA B VG+, HSV neisseria gonorrhoeae, JANET NEGATI VE negati ve Not Available [facility] ([facility]) [address] [place], [address], 08/27/2022 16:10:41 08/23/20 22 08/27/2022 NUSWA B VG+, HSV hsv 1 JANET NEGATI VE negati ve Not Available [facility] ([facility]) [address] [place], [address], 08/27/2022 16:10:41 08/23/2008/27/2022 NUA B VG+, HSV hsv 2 JANET NEGATI VE negati ve Not Available [facility] ([facility]) [address] [place], [address], 08/27/2022 16:10:41 08/23/2008/29/2022 IGP, RFX APTIM A HPV ASCU diagnosis: COMMEN T NEGAT THEA FOR INTRA EPITH ELIAL LESIO N OR JERONIMO VELEZ . THIS SPECI MEN WAS RESCR EENED PART OF OUR QUALI TY CONTR OL PROGR AM. Not Available [facility] ([facility]) [address] [place], [address], 08/29/2022 11:37:49 08/23/2008/29/2022 IGP, RFX APTIM A HPV ASCU specimen adequacy: COMMEN T Satis facto ry for evalu ation . No endoc ervic al compo nent is ident ified . The absen ce of an endoc ervic al compo nent was confi rmed by an addit cyn julian evalu ation . Not Available [facility] ([facility]) [address] [place], [address], 08/29/2022 11:37:49 08/23/2008/29/2022 IGP, RFX APTIM A HPV ASCU clinician provided ICD10: COMMEN T Z01.4 19 Not Available [facility] ([facility]) [address] [place], [address], 08/29/2022 11:37:49 08/23/2008/29/2022 IGP, RFX APTIM A HPV ASCU performed by: HARPER negro, Cytot echno logis t (ASCP ) Not Available [facility] ([facility]) [address] [place], [address], 08/29/2022 11:37:49 08/23/2008/29/2022 IGP, RFX APTIM A HPV ASCU QC reviewed by: HARPER Coffman, Cytot echno logis t (ASCP ) Not Available [facility] ([facility]) [address] [place], [address], 08/29/2022 11:37:49 08/23/2008/29/2022 IGP, RFX APTIM A HPV ASCU . . Not Available [facility] ([facility]) [address] [place], [address], 08/29/2022 11:37:49 08/23/2008/29/2022 IGP, RFX APTIM A [...] ts do occur . Not Available [facility] ([facility]) [address] [facility], [place], [address], 08/29/2022 11:37:49 08/23/2008/29/2022 IGP, RFX APTIM A HPV ASCU test methodology: COMMEN T This liqui d based ThinP rep(R ) pap test was elena moore with the use of an image guide vic perry. Not Available [facility] ([facility]) [address] [place], [address], 08/29/2022 11:37:49 08/23/20 22 08/29/2022 IGP, RFX APTIM A HPV ASCU . COMMEN T The HPV DNA refle x crite dylan were not met with this speci men resul t there fore, no HPV testi ng was perfo rmed. Not Available [facility] ([facility]) [address] [facility], [place], [address], 08/29/2022 11:37:49 08/23/20 22 08/23/2022 pregn kris test, urine HCG negati ve Not Available In-Office Order Internal Use Only DO Not Attach Compendium DO Not Attach Compendium, Do Not Delete/merge, [id number] 08/23/2022 17:06:42 10/17/20 22 10/18/2022 NUSWA B VAGIN ITIS PLUS (VG+) atopobium vaginae High - 2 score abnormal Not Available [facility] ([facility]) [address] [facility], [place], [address], 10/19/2022 03:07:52 10/17/20 22 10/18/2022 NUSWA B VAGIN ITIS PLUS (VG+) bvab 2 Low - 0 score Not Available [facility] ([facility]) [address] [place], [address], 10/19/2022 03:07:52 10/17/20 22 10/18/2022 NUSWA B [...] Drug Admin istra tion. Not Available [facility] ([facility]) [address] [place], [address], 10/19/2022 03:07:52 10/17/20 22 10/18/2022 NUSWA B VAGIN ITIS PLUS (VG+) john albicans, JANET Negati ve negati ve Not Available [facility] ([facility]) [address] [place], [address], 10/19/2022 03:07:52 10/17/20 22 10/18/2022 NUSWA B VAGIN ITIS PLUS (VG+) john glabrata, AJNET Negati ve negati ve Not Available [facility] ([facility]) [address] [place], [address], 10/19/2022 03:07:52 10/17/20 22 10/18/2022 NUSWA B VAGIN ITIS PLUS (VG+) trich vag by JANET Negati ve negati ve Not Available [facility] ([facility]) [address] [place], [address], 10/19/2022 03:07:52 10/17/20 22 10/18/2022 NUSWA B VAGIN ITIS PLUS (VG+) chlamydia trachomatis, JANET Negati ve negati ve Not Available [facility] ([facility]) [address] [place], [address], 10/19/2022 03:07:52 10/17/20 22 10/18/2022 NUSWA B VAGIN ITIS PLUS (VG+) neisseria gonorrhoeae, JANET Negati ve negati ve Not Available [facility] ([facility]) [address] [facility], [place], [address], 10/19/2022 03:07:52 10/17/20 22 10/17/2022 urina lysis , dipst ick Leukocytes Small Not Available In-Offi ce Order Internal Use Only DO Not Attach Compendium DO Not Attach Compendium, Do Not Delete/merge, [id number] 10/17/2022 16:42:50 10/17/20 22 10/17/2022 urina lysis , dipst ick Nitrite negati ve Not Available In-Office Order Internal Use Only DO Not Attach Compendium DO Not Attach Compendium, Do Not Delete/merge, [id number] 10/17/2022 16:42:50 10/17/20 22 10/17/2022 urina lysis , dipst ick Urobilinogen .2 Not Available In-Of fice Order Internal Use Only DO Not Attach Compendium DO Not Attach Compendium, Do Not Delete/merge, [id number] 10/17/2022 16:42:50 10/17/20 22 10/17/2022 urina lysis , dipst ick Protein Trace Not Available In-Office Order Internal Use Only DO Not Attach Compendium DO Not Attach Compendium, Do Not Delete/merge, [id number] 10/17/2022 16:42:50 10/17/20 22 10/17/2022 urina lysis , dipst ick pH 6.0 Not Available In-Office Order Internal Use Only DO Not Attach Compendium DO Not Attach Compendium, Do Not Delete/merge, [id number] 10/17/2022 16:42:50 10/17/20 22 10/17/2022 urina lysis , dipst ick Blood Non-He molyze d: Trace Not Available In-Office Order Internal Use Only DO Not Attach Compendium DO Not Attach Compendium, Do Not Delete/merge, [id number] 10/17/2022 16:42:50 10/17/20 22 10/17/2022 urina lysis , dipst ick Specific [place] 1.030 Not Available In-Off ice Order Internal Use Only DO Not Attach Compendium DO Not Attach Compendium, Do Not Delete/merge, [id number] 10/17/2022 16:42:50 10/17/20 22 10/17/2022 urina lysis , dipst ick Ketone Negati ve Not Available In-Office Order Internal Use Only DO Not Attach Compendium DO Not Attach Compendium, Do Not Delete/merge, [id number] 10/17/2022 16:42:50 10/17/20 22 10/17/2022 urina lysis , dipst ick Bilirubin Negati ve Not Available In-Office Order Internal Use Only DO Not Attach Compendium DO Not Attach Compendium, Do Not Delete/merge, [id number] 10/17/2022 16:42:50 10/17/20 22 10/17/2022 urina lysis , dipst ick Glucose Negati ve Not Available In-Office Order Internal Use Only DO Not Attach Compendium DO Not Attach Compendium, Do Not Delete/merge, [id number] 10/17/2022 16:42:50 Result Notes None recorded. Problems Name Problem SNOMED Code Status Onset Date Resolution Date Notes Provider Name and Address Organization Details Recorded Time Pregnanc y 48413001 Completed 201802/22/2020 Brandon turner, [place] - [place] 0 10:42:19 Low grade squamous intraepi thelial lesion on cervical Papanico laou smear 30083612873 105 Active 2018 Repeat pap 6 weeks postpart um Allie King MD Attn: Gaurav dejesus,[address] [place], [address], [facility] 1 17:32:22 Group B Streptoc occus carrier 13593663346 03 Active 2018 Allie King MD Attn: Gaurav dejesus,[address] [place], [address], [facility] 1 17:32:23 Group B Streptoc occus carrier 58121946303 03 Completed 2018 Allie King MD Attn: Gaurav dejesus,[address] [place], [address], [place] [facility] 1 17:32:23 Bacteria l vaginosi s in pregnanc y 70094441607 9109 Completed 2018 Allie King MD Attn: Gaurav dejesus,[address] [facility], [place], [address], [place] [facility] 1 17:32:22 Bacteria l vaginosi s in pregnanc y 29581113506 9109 Active 2018 Allie King MD Attn: Accountpily g,[address] [facility], [place], [address], [place] [facility] 1 17:32:22 Rubella non-immu ne 657328139 Active 2018 Allie King MD Attn: Daniipily dejesus,[address] [facility], [place], [address], [place] [facility] 1 17:32:23 Rubella non-immu ne 070871017 Completed 2018 Allie King MD Attn: Daniipily dejesus,[address] [facility], [place], [address], [place] [facility] 1 17:32:23 Genital herpes simplex type 2 217029028 Active 2018 Allie King MD Attn: Daniipily dejesus,[address] [facility], [place], [address], [place] [facility] 1 17:32:23 Genital herpes simplex type 2 830808381 Completed 2018 Allie King MD Attn: Daniipily g,[address] [facility], [place], [address], [place] [facility] 1 17:32:23 Anemia 831353702 Active 2018 CRISTI ROMAN Attn: Daniipily g,[address] [facility], [place], [address], [place] [facility] 9 22:39:17 Past pregnanc y history of prematur e labor 522807027 Completed 2019 Weekly Plano injectio ns starting at 20 weeks Allie King MD Attn: Accountpily dejesus,[address] [facility], [place], [address], [place] [facility] 1 17:32:23 Past pregnanc y history of prematur e labor 275097563 Active 2019 Weekly Aurelia injectio ns starting at 20 weeks Allie King MD Attn: Accountpily g,[address] [facility], [place], [address], [place] [facility] 1 17:32:23 Low grade squamous intraepi thelial lesion on cervical Papanico laou smear 52099774842 105 Completed 2018 Repeat pap 6 weeks postpart um Allie King MD Attn: Accountpily g,[address] [facility], [place], [address], [place] [facility] 1 17:32:22 Past pregnanc y history of pre-ecla mpsia 87847016984 9100 Completed 2019 postpart um Allie King MD Attn: Accountpily g,[address] [facility], [place], [address], [place] [facility] 1 17:32:23 Past pregnanc y history of pre-ecla mpsia 19608293654 9100 Active 2019 postpart um Allie King MD Attn: Accountpily g,[address] [facility], [place], [address], [place] [facility] 1 17:32:23 Steriliz ation requeste d [id number] Completed 2019 PAPERS SIGNED, NOT YET DATED Allie King MD Attn: Accountin g,[address] [facility], [place], [address], [place] [facility] 1 17:32:22 Steriliz ation requeste d [id number] Active 2019 PAPERS SIGNED, NOT YET DATED Allie King MD Attn: Accountin g,[address] [facility], [place], [address], [place] [facility] 1 17:32:22 Insuffic ient care 79625451199 09 Active 2019 Allie King MD Attn: Gaurav dejesus,[address] [facility], [place], [address], [facility] 1 17:32:22 Insuffic ient care 63774344957 09 Completed 2019 Allie King MD Attn: Gaurav dejesus,[address] [facility], [place], [address], [place] [facility] 1 17:32:22 Anemia of pregnanc y 60950375 Active 2019 Allie King MD Attn: Gaurav dejesus,[address] [facility], [place], [address], [facility] 1 17:32:22 Anemia of pregnanc y 37567270 Completed 2019 Allie King MD Attn: aGurav dejesus,[address] [facility], [place], [address], [place] [facility] 1 17:32:22 Candidia sis of vagina 05099024 Active 2019 Allie King MD Attn: Gaurav dejesus,[address] [facility], [place], [address], [place] [facility] 1 17:32:22 Candidia sis of vagina 41764571 Completed 2019 Allie King MD Attn: Gaurav dejesus,[address] [facility], [place], [address], [place] [facility] 1 17:32:22 Problem Notes Documentation Provider Name and Address Organization Details Recorded Time 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 Patient : 1990. Patient . Viry Galvin null, [facility] 11/10/2024 16:43:32 Procedures Surgical History Date Name Laterality Status Provider Name and Address Organization Details Recorded Time 08/23/2022 Date of Last Pap Smear completed Tracie Ladd MA [facility] 08/23/2022 16:58:40 Imaging Results None recorded. [...] Not Available Not Available No t Available Aurelia 250 mg/mL intramuscu lar oil Inject 1 [...] completed Not Available Not Available Not Available Plano 250 mg/mL (1 mL) intramuscu lar oil [...] blood by Pulse oximetry Heart rate Systolic And Diastolic Provider Name and Address Organization Details Last Updated DateTime 2 160.02 cm 24.8 kg/m2 19067.3 6 g 98.6 [degF] 99 % 99 % 80 /min 96/76 mm[Hg] Brayden Shanks [place] - [facility] 2 10:40:30 Date Recorded Body height Body mass index (BMI) Body weight Systolic And Diastolic Provider Name and Address Organization Details Last Updated DateTime 08/23/2022 160.02 cm 24.1 kg/m2 02240.56 g 114/80 mm[Hg] Tracie Ladd [place] [facility] 08/23/2022 17:04:09 Date Recorded Body height Body mass index (BMI) Body weight Heart rate Oxygen saturation Oxygen saturation in Arterial blood by Pulse oximetry Systolic And Diastolic Provider Name and Address Organization Details Last Updated DateTime 2 160.02 cm 23.7 kg/m2 14599.3 8 g 80 /min 98 % 98 % 114/80 mm[Hg] Lidia Meza MA [facility] 2 15:38:16 Date Recorded Body height Body mass index (BMI) Body weight Systolic And Diastolic Provider Name and Address Organization Details Last Updated DateTime 10/17/2022 160.02 cm 24.3 kg/m2 48572.15 g 100/64 mm[Hg] Chelsey Green MA [facility] 10/17/2022 14:08:41 Social History Question Answer Notes LastModified by Organizat ion Details LastModified Time Tobacco Smoking Status Never Smoker Marine Pierson MA [facility], [facility] 09/15/2019 09:52:21 Do You Have An Advance [...] available 09/15/2019 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 [facility] Information not available 02/22/2020 Do you or [...] Immunizations Vaccine Type Date Status Note Provider Nam e and Address Organization Details Recorded Time Tdap 0 completed Marine Pierson [place], [place] [facility] 02/12/2020 17:12:54 Tdap 2 completed Brayden Shanks [place], [place] [facility] 12/22/2021 12:23:02 Hep A, adult 2 completed ADRIANA Card[place], [place] [facility] 12/22/2021 12:23:02 Influenza, split virus, quadrivalent, preservative 2 completed CRISTI CERVANTES Attn: Accounting,[address], [place], [address], [facility] 08/24/2022 16:32:09 Past Encounters Encounter ID Performer Location Encounter Start Date Encounter Closed Date Diagnosis/Indication Diagnosis SNOMED-CT Code Diagnosis ICD10 Code Diagnosis Note [id number] CRISTI CERVANTES ([employer]OURT ABSTRACTOR) [address] [place] [address] 09/15/2019 09:06:43 09/16/2019 11:01:53 Routine care 004682817 Z34.91 Venereal d isease screening 573370033 Z11.3 screening 2437 49129 Z36.85 Past pregn kris history of pre-eclampsia 8290894047 57539 Z87.59 Nausea and vomiting 1693 1999 R11.2 [id number] CRISTI CERVANTES (COURT ABSTRACTOR) [address] [place] [id number] 11/13/2019 10:55:38 11/16/2019 11:22:36 Routine care 639508349 Z34.91 screening 2437 07206 Z36.1 Gastroesop hageal reflux disease without esophagitis 596361962 K21.9 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 337012809 A60.00 Bacterial vaginosis in 4667133778 [address] reptococcus carrier 6494297329 103 Z22.330 Past pregn kris history of premature labor 229560670 Z87.51 Rubella non-immune 91903 4009 Z01.84 [id number] CRISTI CERVANTES [facility] (COURT ABSTRACTOR) [address] [place] [address] 12/11/2019 10:08:53 12/16/2019 17:41:00 [id number] CRISTI CERVANTES (COURT ABSTRACTOR) [address] [place] [id number] 12/11/2019 11:37:05 12/11/2019 18:09:40 Past history of premature labor 236610962 Z87.51 Routine an tenatal care 304097022 Z34.91 Bereavement 79288735 Z63 .4 Sterilizat ion requested 710510325 Z30.2 Pt desires BTL. [id number] CRISTI CERVANTES [facility] (COURT ABSTRACTOR) [address] [place] [address] 12/18/2019 10:05:35 12/21/2019 09:49:43 Past history of premature labor 484258648 Z87.51 [id number] MD Dena Singh [facility] (COURT AB[employer]CTOR) [address] [place] [address] 12/25/2019 10:10:53 12/28/2019 10:35:55 Past history of premature labor 292246518 Z87.51 [id number] MD Dena Singh [facility] (COURT ABSTRACTOR) [address] [place] [id number] 01/01/2020 11:47:16 01/04/2020 10:36:36 Past history of premature labor 541477748 Z87.51 [id number] CRISTI CERVANTES [facility] (COURT ABSTRACTOR) [address] [place] [id number] 01/08/2020 10:34:14 01/08/2020 11:43:10 Past history of premature labor 821783466 Z87.51 [id number] MD Dena Singh [facility] (COURT ABSTRACTOR) [address] [place] [id number] 01/15/2020 17:05:58 01/19/2020 15:25:04 Past history of premature labor 820100083 Z87.51 [id number] MD Dena Singh [facility] (COURT ABSTRACTOR) [address] [place] [id number] 0 01/22/2020 10:42:13 01/25/2020 08:25:05 Past history of premature labor 454507523 Z87.51 [id number] MD Dena Singh [facility] (COURT ABSTRACTOR) [address] [place] [id number] 01/29/2020 16:43:57 02/01/2020 08:44:27 Past history of premature labor 573772081 Z87.51 [id number] MD Dena Singh (COURT ABSTRACTOR) [address] [place] [address] 02/05/2020 11:28:16 02/05/2020 11:46:57 Past history of premature labor 887924146 Z87.51 [id number] CRISTI CERVANTES (COURT ABSTRACTOR) [address] [place] [address] 02/12/2020 15:52:28 02/17/2020 08:41:33 Routine care 175467588 Z34.91 Routine care at 29 weeks. Pt not seen since 20 weeks gestation. She is getting weekly Aurelia. Denies contractio ns, LOF. Encouraged pt to take ASA for h/o pre-eclamp yeyo. Tdap given today. Order for 3rd trimester US given. Encouraged pt to schedule ZELALEM as baby is measuring small for gestationa l age. Pt to return Saturday morning for GTT. RTC in 2 weeks. Past pregn kris history of pre-eclampsia 7677587047 56301 Z87.59 Pt not taking ASA. Advised to start for h/o pre-eclamp yeyo. Past pregn kris history of premature labor 188498259 Z87.51 Pt denies contractio ns, LOF. Continue weekly Plano. Will recheck progestero ne levels today. Sterilizat ion requested 498839463 Z30.2 Pt desires BTL. Papers already signed. screening 9777 04911 Z36.9 Pt not fasting, she will return Saturday morning for 1 hour GTT. Insufficie nt care 2570277911 109 O09.33 Last visit 12/11. Bacterial vaginosis in 6904996569 54748 O23.599 Rubella non-immune 03241 4009 Z01.84 vaccinatio n. Low grade squamous intraepithelial lesion on cervical Papanicolaou smear 9528318304 9105 R87.612 Repeat pap 6 weeks . Small for gestational age fetus 575894196 O36.5999 Measuring around 25 weeks. F/u US, Dopplers. [id number] MD Dena Singh [facility] (COURT ABSTRACTOR) [address] [place] [id number] 02/22/2020 10:19:54 03/04/2020 11:04:08 Routine care 993126971 Z34.93 Past pregn kris history of premature labor 067752358 Z87.51 Past pregn kris history of pre-eclampsia [id number] [address] reptococcus carrier [id number] 103 Z22.330 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 476469223 A60.00 Anemia of 2734 2003 O99.019 Sterilizat ion requested 512721278 Z30.2 [id number] MD Dena Singh (COURT ABSTRACTOR) [address] [place] [address] 78176-470 0 02/23/2020 13:43:32 03/04/2020 11:44:52 Routine care 727798761 Z34.93 Past pregn kris history of premature labor 418969937 Z87.51 steroid, tocolytics and antibiotic s Chronic id iopathic constipation 89182139 K59.[address] reptococcus carrier [id number] 103 Z22.330 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 983196187 A60.00 [id number] MD Dena Singh (COURT ABSTRACTOR) [address] [place] [address] 03857-613 0 02/24/2020 16:57:24 03/04/2020 12:15:41 Past history of premature labor 172080346 Z87.51 steroid, tocolytics and antibiotic s [id number] MD Dena Singh (COURT ABSTRACTOR) [address] [place] [address] 63348-415 0 02/25/2020 16:24:55 03/04/2020 12:31:59 Routine care 432192001 Z34.93 Past pregn kris history of premature labor 728531571 Z87.51 steroid, tocolytics and antibiotic s Pain in pelvis 94007646 R10.2 [id number] MD Dena Singh (COURT ABSTRACTOR) [address] [place] [address] 29914-841 0 03/09/2020 16:37:29 03/10/2020 11:49:10 Routine care 645566622 Z34.93 Past pregn kris history of premature labor 812609961 Z87.51 steroid, tocolytics and antibiotic s Insufficie nt care 4109435709 109 O09.33 Past pregn kris history of pre-eclampsia 2450264307 11367 Z87.59 [id number] MD Dena Singh (COURT ABSTRACTOR) [address] [place] [address] 37308-833 0 03/22/2020 10:56:16 03/23/2020 07:24:52 Routine care 060971128 Z34.93 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 reptococcus carrier 2667606787 103 Z22.330 Past pregn kris history of premature labor 531583236 Z87.51 steroid, tocolytics and antibiotic s Insufficie nt care 0060631506 109 O09.33 [id number] MD Dena Singh (COURT ABSTRACTOR) [address] [place] [address] 46170-340 0 04/12/2020 16:43:33 04/13/2020 09:14:16 Routine care 430789221 Z34.93 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
--- OUTSIDE RECORDS SUMMARY | 2025-05-24 16:17 | XMS_ITS | Continuity of Care Document ---
Author Organization [facility] Address [address] [place] [id number] Care Team Providers Care Vp Ad Sales [place] Name Role Phone [facility] Graphic Illustrator Assessment No assessment recorded. Plan of Treatment Reminders Order Date Submit Date Provider Last Modified By Organization Details Last Modified Time Details Appointments PULP DRIER FIRER EST 2024 12:15P Mikhail Mayorga CNM Not available Not available Not available Lab culture, urine 2024 025 [facility], [address] [place], [address], 05/24/2025 14:00:35 [facility]inalysi s, dipstick [facility] [address], [address], 05/24/2025 13:33:50 test, urine [facility] [address], [address], 05/24/2025 13:32:21 beta-HCG, quantitat martin, serum or plasma 2024 025 [facility], [address] [place], [address], 05/24/2025 13:55:34 unlisted lab - sureswab( R) advanced vaginitis plus, tma 2024 025 [facility], [address] [facility], [place], [address], 05/24/2025 15:36:42 Referral None recorded. Procedures None recorded. Surgeries None recorded. Imaging None recorded. Medication Orders None recorded. Patient TargetsNo targets recorded. Patient InstructionsNo instructions recorded. Reason for Referral None Reported. Problems Name Problem SNOMED Code Status Onset Date Resolution Date Notes Provider Name and Address Organization Details Recorded Time 83332952 Completed 202208/08/2023 B+/Rno nI/NRx 3 low risk male Enmanuel Goncalves null, [place] - [facility] 5 14:46:27 [id number] Completed 2022 B+/Rno nI/NRx 3 low risk male Darlin Michael null, [place] - [facility] 3 11:10:00 Low back pain in 776920287194 6 Active 2022 Corry Mcmahan MD [facility] [place], [address], [facility] - [facility] 3 16:50:48 Anemia of 23469498 Active 2022 Corry Mcmahan MD [facility] [place], [address], [facility] - [facility] 3 12:49:02 Rubella non-immun e 798003737 Completed MMR PP Darlin Michael null, [employer] - [facility] 3 11:10:00 Anemia 673925928 Completed hgb=9. 1 6-2-23 and mcv 83 and on 5-5 was 8.8 and mcv 77 and cont with iron Darlin Michael null, [place] - [facility] 3 11:10:00 Problem Notes None recorded. Procedures Surgical History Date Name Laterality Status Provider Name and Address Organization Details Recorded Time 5 Colposcopy - Cervix cancelled Sylvia Young [facility] [facility] IV 11/02/2024 16:30:31 4 Colposcopy - Cervix cancelled Sylvia Young [facility] [facility] IV 10/20/2024 12:44:46 4 IUD Removal completed JACOBO HYLTON-BC [address] [place], [address], [facility] 10/19/2024 15:08:58 4 Date of Last Pap Smear completed RENETTA DWYER, CHECKERING MACHINE OPERATOR [address] [place], [address], [facility] [employer] [facility] IV 09/28/2024 14:37:01 4 IUD Exchange cancelled Caterina Jeonglister [facility] [employer] [facility] IV 01/17/2024 12:18:19 3 IUD Insertion completed ROLANDO Gonzales [address] [place], [address], [facility] [employer] IV 08/08/2023 12:13:21 Imaging Results None recorded. [...] day by oral route for 30 days. 05/24 completed Not Available Not Available Not Available metronidazo le 0.75 % (37.5 mg/5 gram) [...] TABLET ON THE TONGUE TWICE DAILY NEEDED 05/24 completed Not Available Not Available Not Available [...] mL twice a day by oral route. 05/24 completed Not Available Not Available Not Available ibuprofen 600 mg tablet 07/17 completed [...] Take 1/2 or 1 tablet at bedtime 05/24 completed Not Available Not Available Not Available [...] and Address Organization Details Last Updated DateTime 05/24/2025 160.02 cm 26.5 kg/m2 26979.42 g 120/70 mm[Hg] Cyndymary jo [facility] 05/24/2025 13:21:52 Social History Question Answer Notes LastModified by Organizat ion Details LastModified Time Tobacco Smoking Status Never Smoker Machellebrody Hernandezroberth turner, [employer] [facility] 12/06/2022 10:16:15 Are You Blind Or Do You Have Difficulty Seeing? No Information not available 01/03/2023 Are You Deaf Or Do You Have Serious Difficulty Hearing? No Information not available 01/03/2023 What Type Of Diet Are You Following? REGULAR Information not available 12/06/2022 How Many Children Do You Have? 4 apikylah Information not available 09/15/2024 What Is Your Relationship Status? Single Information not available 12/06/2022 Are You Sexually Active? Yes madi Information not available 09/15/2024 Sex: Female Functional [...] available 05/07/2023 What is your occupation? 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 [place] Information not available 05/07/2023 Do [...] Colon Cancer N Cytomegalovirus N Hyperthyroidism N Herpes (HSV) N Breast Cancer N Blood Transfusion N MRSA N Lung Cancer N Hypothyroidism N Depression N Incontinence N Panic Attacks N Neurological Disorder N Deep Vein Thrombosis N Anxiety Disorder N Autoimmune disease N Arthritis N Tuberculosis/Positive PPD N Shingles N Polycystic Ovarian Syndrome N Infertility N Cervical Cancer N Hematuria N Chlamydia N Varicosities N Stroke N Crohn's Disease N Seasonal allergies N Alzheimer's/Dementia N COPD/Emphysema N HPV/Genital Warts N Endometriosis N IBS (Irritable Bowel Syndrome) N History of Abnormal Pap N High Cholesterol N Liver Disease N Kidney Infection N Fibromyalgia N Ulcer N Kidney Disease N HIV N Gallbladder disease N Sickle Cell Disease/Trait N Von Willebrand disease N ADD/ADHD N Eating Disorder N Diabetes Mellitus (non-insulin dependent ) N Anemia N Ovarian Problems N Multiple Sclerosis N Gonorrhea N Frequent Urinary Tract infections N Osteopenia N Headaches/migraines N GERD (reflux) N Ovarian Cancer N Diabetes (insulin dependent) N Seizures/Epilepsy N Breast Problems N Fibroids N Asthma N Heart Attack N Lupus N Endometrial Cancer N Rubella N Blood Clotting Disorder N Bipolar Disorder N Diabetes Mellitus (during ) N Ulcerative Colitis N Hepatitis N Heart Disease N Pulmonary Embolism N RPR N Chicken Pox N Osteoporosis N Gynecological History Statement/Question Response Flow Heavy Date of last HPV 09/17/2024 Date of LMP 01/20/2025 HPV Vaccine N Duration of Flow (days) 4 Most Recent Mammogram Current Control Method None Age at Menarche 15 Date of Last Colonoscopy Most Recent Bone Density Frequency of Cycle (Q days) 28 Date of Last Pap Smear 09/17/2024 Obstetrics History GPAL:G 5 P 4 0 1 4 Type Value Full Term 4 Induced 1 Living 4 Total 5 Past Encounters Encounter ID Performer Location Encounter Start Date Encounter Closed Date Diagnosis/Indication Diagnosis SNOMED-CT Code Diagnosis ICD10 Code Diagnosis Note [id number] Donna Mayorga CNM [facility] [address] [place] [address] 05/24/2025 12:55:52 05/24/2025 15:43:02 [id number] Donna Mayorga CNM [facility] [address] [place] [address] 05/24/2025 13:00:14 05/24/2025 14:03:43 Missed period 82951938 N92.6 Pt had terminatio n in March and has not had any significan t cycle bleeding since then. Had positive HPT twice. UPT in the office negative today. Will obtain hCG level and follow.POC pending hCG results.Di scussed in detail w/pt. F/u on Sat for repeat hCG. Plan US pending results.Pt agreeable to plan Urinary symptoms 2250488 08 R39.9 Vaginal bleeding 0729143 06 N93.9 Health Concerns Section Related Observation LastModified by Organization Detai ls LastModified Time None Recorded Concern Status LastModified by Organization Details LastModified Time None Recorded Payers Encounter Date Sequence Insurance Name Policy Number Policy [place] Covered Member ID [place] Member ID Guarantor Name 05/24/2025 1 [employer] [id number] Mauricio Killian [id number] Mauricio Killian 05/24/2025 2 [place] [facility] Mauricio Killian [id number] Mauricio Killian Notes Date Note Type Note Provider Name and Address Organization Details Recorded Time 05/24/2025 text/html Mauricio mason here fo r confirmation pregnancypatient c/o uti symptoms frequent urinationpatient c/o cramping and spottingpatient c/o taking 2 POS home UPT yesterday Donna Mayorga CNM [address] [facility], [place], [address], [facility] IV 05/24/2025 15:22:38 OBGyn Episode No OBEpisode recorded.
--- OUTSIDE RECORDS SUMMARY | 2025-05-24 16:17 | XMS_ITS | Data Portability ---
Author Organization [employer] , [facility] Address [address] [place] [address] Care Team Providers Care Supervisor Area Name Role Phone [facility] Vp Customer Development Assessment No assessment recorded. 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 2024 12:15P Mikhail Mayorga CNM Not available Not available Not available Lab culture, urine 2024 025 [employer] [facility], [address] [place], [address], 05/24/2025 14:00:35 urinalysi s, dipstick 2024 025 [email or web address] [facility] [address], [address], 05/24/2025 13:33:50 test, urine 2024 025 [facility] [address], [address], 05/24/2025 13:32:21 beta-HCG, quantitat martin, serum or plasma 2024 025 [employer] [facility], [address] [place], [address], 05/24/2025 13:55:34 unlisted lab - sureswab( R) advanced vaginitis plus, tma 2024 025 [facility], [address] [place], [address], 05/24/2025 15:36:42 test, urine 2024 025 [email or web address] [facility], [address] [place], [address], 03/11/2025 15:25:01 unlisted lab - sureswab( R) advanced vaginitis plus, tma 2024 025 [facility], [address] [facility], [place], [address], 02/25/2025 10:08:23 urinalysi s, dipstick 2024 025 [email or web address] [facility], [address] [place], [address], 02/15/2025 14:50:22 culture, urine 2024 025 [employer] [facility], [address] [place], [address], 02/17/2025 17:49:56 test, urine 2024 025 [email or web address] [facility], [address] [place], [address], 02/15/2025 14:50:22 bacterial vaginosis + vaginitis panel, vaginal 2024 025 [facility], [address] [place] [address], [address], 02/17/2025 13:18:42 Referral None recorded. Procedures None recorded. Surgeries None recorded. Imaging US, transvagi nal 2024 025 [facility] Not available 03/11/2025 19:17:49 Medication Orders ondansetr on 8 mg disintegr ating tablet 2024 025 [facility] #[id number], [address], [place], [place], [id number], 05/24/2025 13:28:45 pyridoxin e (vitamin B6) 25 mg tablet 2024 025 [facility] #[id number], [address], [place], [place], [id number], 05/24/2025 13:28:56 Unisom (doxylami ne) 25 mg tablet 2024 025 [facility] #[id number], [address], [place], [place], [id number], 05/24/2025 13:29:04 Macrobid 100 mg capsule [email or web address] [place] [address] #[id number], [address], [place], [place], [id number], 03/11/2025 14:44:32 Patient TargetsNo targets recorded. Patient Instructions Encounter Date Encounter Id Patient Instructions Last Modified By Organization Details Last Modified Time 03/11/2025 [id number] extreme nausea and vomiting in : care instructions [email or web address] Not available 03/11/2025 15:31:33 [facility] OB Booklet [email or web address] Not available 03/11/2025 15:25:01 Reason for Referral None Reported. Results Created Date Observation Date Name Description Value Unit Range Abnormal Flag Note LastModifiedBy Organization Detail LastModifiedTime 02/16/2002/17/2025 VAGIN ITIS PLUS STD PANEL bacterial vaginosis BV POS negati ve abnormal Not Available [facility] [address] [place], [address], 02/17/2025 13:18:42 02/16/2002/17/2025 VAGIN ITIS PLUS STD PANEL john species C. spp neg negati ve normal Not Available [address], [address], 02/17/2025 13:18:42 02/16/20 25 02/17/2025 VAGIN ITIS PLUS STD PANEL john glabrata C. gla neg negati ve normal Not Available [address], [address], 02/17/2025 13:18:42 02/16/20 25 02/17/2025 VAGIN ITIS PLUS STD PANEL trichomonas vaginalis CV/TV TRICH neg negati ve normal Not Available [address], [address], 02/17/2025 13:18:42 02/16/20 25 02/17/2025 VAGIN ITIS PLUS STD PANEL chlamydia trachomatis CT neg negati ve normal This repor t is inten ded for us in clini berta monit oring and manag ement of patie nts. It is not inten ded for use in medic al-le gal appli catio n. Not Available [address], [address], 02/17/2025 13:18:42 02/16/20 25 02/17/2025 VAGIN ITIS PLUS STD PANEL neisseria gonorrhoeae GC neg negati ve normal This repor t is inten ded for us in clini berta monit oring and manag ement of patie nts. It is not inten ded for use in medic al-le gal appli catio n. Not Available [facility] [address] [place] [address], [address], 02/17/2025 13:18:42 02/16/20 25 02/18/2025 CULTU RE, URINE , ROUTI NE culture, urine, routine SEE NOTE abnormal CULTU RE, URINE , ROUTI NE Micro Numbe r: [id number] Test Statu s: Final Speci men [...] lexin and lorac arbef . Not Available [facility] [address] [place], [address], 02/18/2025 10:58:55 02/16/20 25 02/15/2025 pregn kris test, urine HCG positi ve Not Available [address], [address], 02/15/2025 14:27:22 02/16/20 25 02/15/2025 urina lysis , dipst ick Leukocytes Trace Not Available [address], [address], 02/15/2025 14:25:36 02/16/20 25 02/15/2025 urina lysis , dipst ick Nitrite negati ve Not Available [address], [place], [address], 02/15/2025 14:25:36 02/16/20 25 02/15/2025 urina lysis , dipst ick Protein Negati ve Not Available [address], [place], [address], 02/15/2025 14:25:36 02/16/20 25 02/15/2025 urina lysis , dipst ick pH 5.5 Not Available [address], [place], [address], 02/15/2025 14:25:36 02/16/20 25 02/15/2025 urina lysis , dipst ick Blood Large Not Available [address], [place], [address], 02/15/2025 14:25:36 02/16/20 25 02/15/2025 urina lysis , dipst ick Specific [place] 1.015 Not Available [address], [place], [address], 02/15/2025 14:25:36 02/16/20 25 02/15/2025 urina lysis , dipst ick Ketone Negati ve Not Available [address], [place], [address], 02/15/2025 14:25:36 02/16/20 25 02/15/2025 urina lysis , dipst ick Bilirubin Negati ve Not Available [address], [place], [address], 02/15/2025 14:25:36 02/16/20 25 02/15/2025 urina lysis , dipst ick Glucose Negati ve Not Available [address], [place], [address], 02/15/2025 14:25:36 02/16/20 25 02/15/2025 urina lysis , dipst ick Appearance Clear Not Available [address], [place], [address], 02/15/2025 14:25:36 02/16/20 25 02/15/2025 urina lysis , dipst ick Color Dark Yellow Not Available [address], [place], [address], 02/15/2025 14:25:36 02/24/20 25 02/25/2025 SURES WAB(R ) ADVAN ROBERT VAGIN ITIS PLUS, TMA sureswab(R) adv bacterial vaginosis (bv), tma NEGATI VE negati ve normal Not Available [address], [address], 02/25/2025 10:08:23 02/24/20 25 02/25/2025 SURES WAB(R ) ADVAN ROBERT VAGIN ITIS PLUS, TMA john species DETECT ED not detect ed abnormal Not Available [facility] [address] [address] [place], [address], 02/25/2025 10:08:23 02/24/20 25 02/25/2025 SURES WAB(R ) ADVAN ROBERT VAGIN ITIS PLUS, TMA john glabrata NOT DETECT ED not detect ed normal Nanda da speci es C. albic ans, C. tropi calis , C. parap chhaya is, and/o r C. dubli niens is can be detec radha, but not diffe renti ated, in the Nanda da spp. resul t. Not Available [facility] - [address], [address], 02/25/2025 10:08:23 02/24/20 25 02/25/2025 SURES WAB(R ) ADVAN ROBERT VAGIN ITIS PLUS, TMA trichomonas vaginalis (TV), tma NOT DETECT ED not detect ed normal Not Available [facility] [place] [address] [place], [address], 02/25/2025 10:08:23 02/24/20 25 02/25/2025 SURES WAB(R ) ADVAN ROBERT VAGIN ITIS PLUS, TMA chlamydia trachomatis RNA, tma, urogenital NOT DETECT ED not detect ed normal Not Available [facility] [place] [address] [place], [address], 02/25/2025 10:08:23 02/24/20 25 02/25/2025 SURES WAB(R ) ADVAN ROBERT VAGIN ITIS PLUS, TMA neisseria gonorrhoeae RNA, tma, urogenital NOT DETECT ED not detect ed normal For addit ional lesly chavez refer to https ://ed ati on.qu talonSpectropath. [employer]/f aq/FA Q154 (This link is being provi ded for kirill sterling/ eric angulo purpo ses only. ) Not Available [facility] [place] [address] [place], [address], 02/25/2025 10:08:23 03/11/20 25 03/11/2025 pregn kris test, urine HCG positi ve Not Available [facility] [address] [place], [address], 03/11/2025 15:24:50 04/12/20 25 04/13/2025 HCG, TOTAL [...] has not been valid ated [facility] . Not Available [address], [address], 04/13/2025 10:43:52 04/22/20 25 04/23/2025 HCG, TOTAL [...] has not been valid ated by the [facility] act[facility] of this assay . Not Available [address], [address], 04/23/2025 13:08:40 03/11/20 25 03/11/2025 US, trans vagin al No observ ation record ed. guille [address], [facility], [place], [address], 03/12/2025 16:55:44 Result Notes None recorded. Problems Name Problem SNOMED Code Status Onset Date Resolution Date Notes Provider Name and Address Organization Details Recorded Time 48184413 Completed 202208/08/2023 B+/Rno nI/NRx 3 low risk male Enmnauel Goncalves null, [facility] [employer] [facility] IV 5 14:46:27 31290503 Completed 2022 B+/Rno nI/NRx 3 low risk male Darlin Michael null, [place] [employer] [facility] IV 3 11:10:00 Low back pain in 097432908180 6 Active 2022 Corry Mcmahan MD [address] [place], [address], [facility] IV 3 16:50:48 Anemia of 62216620 Active 2022 Corry Mcmahan MD [address] [place], [address], [facility] - [facility] IV 3 12:49:02 Rubella non-immun e 884762965 Completed MMR PP Darlin Alec null, [place] - [facility] IV 3 11:10:00 Anemia 881333035 Completed hgb=9. 1 6-2-23 and mcv 83 and on 5-5 was 8.8 and mcv 77 and cont with iron Darlin Michael null, [facility] IV 3 11:10:00 Problem Notes None recorded. Procedures Surgical History Date Name Laterality Status Provider Name and Address Organization Details Recorded Time 5 Colposcopy - Cervix cancelled Sylvia Young [facility] IV 11/02/2024 16:30:31 4 Colposcopy - Cervix cancelled Sylvia [facility] IV 10/20/2024 12:44:46 4 IUD Removal completed JACOBO HYLTON-BC [address] [place], [address], [facility] IV 10/19/2024 15:08:58 4 Date of Last Pap Smear completed JASON RAND [address] [place], [address], [facility] [employer] IV 09/28/2024 14:37:01 4 IUD Exchange cancelled Caterina Dickson [facility] IV 01/17/2024 12:18:19 3 IUD Insertion completed Holly Samuels CNM [address] [place], [address], [facility] 08/08/2023 12:13:21 Imaging Results None recorded. Procedure [...] Updated DateTime 02/15/2025 160.02 cm 27.5 kg/m2 61507.82 g Sarahy Snehal [facility] [employer] IV 02/15/2025 14:20:40 Date Recorded Body height Body mass index (BMI) Body weight Systolic And Diastolic Provider Name and Address Organization Details Last Updated DateTime 02/23/2025 160.02 cm 27.7 kg/m2 71337.13 g 100/60 mm[Hg] Tramea Elsy [facility] [employer] [facility] IV 02/23/2025 14:09:03 Date Recorded Body height Body mass index (BMI) Body weight Systolic And Diastolic Provider Name and Address Organization Details Last Updated DateTime 03/11/2025 160.02 cm 27.9 kg/m2 35955.44 g 100/58 mm[Hg] Enmanuel Sacha [facility] [employer] [facility] IV 03/11/2025 14:50:09 Date Recorded Body height Body mass index (BMI) Body weight Systolic And Diastolic Provider Name and Address Organization Details Last Updated DateTime 05/24/2025 160.02 cm 26.5 kg/m2 92621.42 g 120/70 mm[Hg] Tramea Elsy [facility] [employer] [facility] IV 05/24/2025 13:21:52 Social History Question Answer Notes LastModified by Organizat ion Details LastModified Time Tobacco Smoking Status Never Smoker [facility] [employer] [facility] IV 12/06/2022 10:16:15 Are You Blind Or Do You Have Difficulty Seeing? No Information not available 01/03/2023 Are You Deaf Or Do You Have Serious Difficulty Hearing? No Information not available 01/03/2023 What Type Of Diet Are You Following? REGULAR Information not available 12/06/2022 How Many Children Do You Have? 4 [email or web address] Information not available 09/15/2024 What Is Your [...] What is your occupation? 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 [employer] Information not available 05/07/2023 Do [...] N Breast Cancer N Herpes (HSV) N Blood Transfusion N MRSA N Lung [...] SNOMED-CT Code Diagnosis ICD10 Code Diagnosis Note [id number] Maikel Dsouza, [address] [address] 12/06/2022 10:12:06 12/06/2022 12:43:28 Missed period 55125745 N92.5 detection examination 12727093 Z32.01 Z32.00 Hyperemesi s gravidarum 18338055 O21.0 [id number] Holly mason, [address] [address] 01/03/2023 09:04:34 01/04/2023 15:01:23 Routine care 362374396 Z34.01 Z34.81 O09.511 O09.746 [id number] Corry Mcmahan MD [address] [address] 03/21/2023 15:35:42 03/22/2023 14:27:46 Routine care 739886072 Z34.01 Z34.81 O09.511 O09.521 Low back p ain in 7983037980 106 O26.899 Screening for malignant neoplasm of cervix 565973363 Z12.4 Fatigue du ring - not delivered 979584500 O26.819 Screening for disorder 604412798 Z11.3 N89.9 Gestation period, 26 weeks 37264834 Z3A.26 [id number] Corry Mcmahan MD [address] [address] 04/04/2023 10:15:44 04/05/2023 15:24:32 Routine care 853019840 Z34.01 Z34.81 O09.511 O09.521 Screening for disorder 223545653 Z11.3 N89.9 Gestation period, 28 weeks 77559220 Z3A.28 screening 2437 50787 Z36.9 Depression screening 171 665831 Z13.31 [id number] Corry Mcmahan MD [facility] [address] [place] [address] 04/16/2023 11:41:48 04/17/2023 09:49:18 Routine care 132314694 Z34.83 labs from last visit Screening for disorder 701706238 Z11.3 N89.9 labs from last visit screening 2437 67133 Z36.9 labs from last visit Gestation period, 30 weeks 67153507 Z3A.30 Low back p ain in 6022320956 106 O26.899 Anemia of 2732003 O99.525 [id number] Sav Calderón MD [facility] [address] [place] [address] 05/07/2023 10:54:34 05/07/2023 17:14:12 Routine care 651896963 Z34.83 labs from last visit screening 2437 42994 Z36.9 labs from last visit Screening for disorder 720026073 Z11.3 N89.9 labs from last visit Low back p ain in 3178104675 106 O26.899 Anemia of 2732003 O99.019 Gestation period, 33 weeks 72953363 Z3A.33 [id number] Sav Calderón MD [facility] [address] [place] [address] 05/22/2023 10:29:50 05/23/2023 14:42:39 Routine care 780528729 Z34.83 labs from last visit Screening for disorder 214065339 Z11.3 N89.9 labs from last visit Anemia of 2732003 O99.019 Gestation period, 35 weeks 82904760 Z3A.35 Urinary tr act infectious disease 79218260 N39.0 Bacterial vaginosis 4197 11084 N76.0 [id number] Sav Calderón MD [facility] [address] [place] [address] 05/29/2023 17:15:37 06/10/2023 10:49:55 Gestation period, 36 weeks 19532415 Z3A.36 [id number] Angelita Mcgovern, [facility] [address] [place] [address] 06/12/2023 11:52:57 06/12/2023 14:33:40 Gestation period, 38 weeks 29404623 Z3A.38 Routine an tenatal care 433323663 Z34.93 [id number] Sav Calderón MD [address] [address] 07/17/2023 12:09:09 07/18/2023 11:38:24 state 41619539 Z39.2 discussed breast feeding and control and minipill and also any progestero ne type and will switch to combinatio n pill after breast feedingwil l see in 10-12 months for yearly or sooner if neededalso discussed timing of second and waiting 15 months before atttemptin g to get prgnant for medical reasons which were discussed with the patient Contracept ion care management 765495006 Z30.9 back in 1-2 weekks for IUD Bacterial vaginosis 4197 12207 N76.0 has these after menses and 3 days heavy Goiter 1585283 E04.9 US if thyroid still enlarged in 2 week [id number] Holly mason, [address] [address] 08/08/2023 10:51:00 08/08/2023 17:17:27 Insertion of intrauterine contraceptive device 63529813 Z30.430 IUD malpositio n, discussed will still be effective but if has cramping will replace [id number] JACOBO HYLTON-[address] [address] 04/29/2024 11:03:51 04/30/2024 10:58:32 Acute vaginitis 46017972 N76.0 Vaginal discharge: - vaginitis/ STI swab [...] further management . Routine gy necologic examination 552265688 Z01.419 Patient is an establishe d patient [...] Yes Screening for malignant neoplasm of cervix 108965908 Z12.4 ASCCP guidelines reviewed with patient. Pap Hx: No pap collected today. Pt states understand ing and is amenable to POC. Contracept ion education 567312314 Z30.09 discussion about menes with IUD and reports [id number] RENETTA DWYER, JASON [address] [address] 09/15/2024 10:19:32 09/15/2024 11:36:46 Dysuria 62668976 R30.0 Pt comes in today with complaints /concern for UTI. S/S:Pain or burning while urinatingF requent urinationF eeling the need to urinate despite having an empty bladder POCSure SwabUrine CultureDip : Remarkable for small leukocytes , nitrates, moderate bloodRx sent Screening for malignant neoplasm of cervix 108331207 Z12.4 ASCCP guidelines reviewed with pt. Pap collected and sent. Further POC pending lab result review. Pt states understand ing of POC. [id number] ISABEL NAYAK CICI-[address] [address] 10/19/2024 14:31:43 10/19/2024 15:19:41 Removal of intrauterine device 31564696 Z30.432 Contracept ion education 575451361 Z30.09 Contracept martin counseling : Discussed options including OCPs, NuvaRing, Nexplanon, hormonal and copper IUDs. Discussed risks, efficacy, non contracept martin benefits, and side effects of each option, including risk of VTE with hormonal contracept ion and uterine perforatio n, expulsion, infection with IUD. Declines contracept ion at this time [id number] ANABEL VELAZQUEZ NP [address] [address] 10/30/2024 12:29:07 10/30/2024 15:38:14 Vaginal discharge 317374552 N89.8 N76.0 Vaginal discharge: - vaginitis/ STI swab sent, will treat per culture.- Reviewed vulvar hygiene: avoid tight or moist clothing, soaps, Vagisil and other wipes, cotton underwear only, and sleep without unscented detergent- Advised to figure out triggering factors (wet gym cloths, lotion, sensitivit y to partner, sensitive latex).- Discussed OTC Vaginal boric acid role in vaginal infections . [id number] ANABEL VELAZQUEZ NP [address] [address] 12/31/2024 10:48:15 01/04/2025 13:07:12 Venereal disease screening 844732273 Z11.3 Discussed the various types of STDs, related symptoms and the potential consequenc es (including effects on fertility) of STD infections . Reviewed ways to limit exposure and prevention techniques . Preconcept ion counseling 774828800 Z31.69 Pt is Trying to Conceive. Education [...] if pt has not had positive UPT. [id number] JASON RAND [facility] [address] [place] [address] 02/15/2025 13:53:47 02/15/2025 16:20:48 Dysuria 75636661 R30.0 Urine Culture for sensitivit yDip: Remarkable for small leukocytes , moderate bloodRx sent Vaginal odor 813077399 N 89.8 Pt educated on exam findings, and discussed POC. Vaginal cx collected and sent. Pt advised to avoid fragrant soaps/laun dry detergents , use of baking soda soaks, having partner change soaps, etc. Further POC pending lab result review. Unprotecte d sexual intercourse 7099171 Z72.51 LMP 01/20/2025 ased on LMP patient would be approx 4-5 weeks Wi ll continue with PNVReviewe d SAB signs and precaution sRTC in 3 weeks for confirmati on [id number] Donna Mayorga CNM [facility] [place] [address] [place] [address] 02/23/2025 13:46:58 02/23/2025 14:54:17 Vaginal discharge 111161878 N89.8 Pt here d/t weird string that came out of the vagina. Spec exam shows large amounts of gel d/t metrogel for BV.Reassur ance provided.F /u for confirmati on. [id number] ISABEL NAYAK, [facility] [address] [place] [address] 03/11/2025 14:27:37 03/11/2025 15:52:26 test positive 136144454 Z32.01 Pt presents today for a confirmati [...] vitamins daily---To xoplasmosi s precaution s reviewed-- -[facility] Guide; What to expect on your [...] consent for NIPT and carrier screening. Nausea 490796229 R11.0 [id number] Donna Mayorga CNM [facility] [place] [address] [place] [address] 05/24/2025 12:55:52 05/24/2025 15:43:02 [id number] Donna Mayorga CNM [facility] [address] [place] [address] 05/24/2025 13:00:14 05/24/2025 14:03:43 Missed period 06694757 N92.6 Pt had terminatio n in March and has not had any significan t cycle bleeding since then. Had positive HPT twice. UPT in the office negative today. Will obtain hCG level and follow.POC pending hCG results.Di scussed in detail w/pt. F/u on Sat for repeat hCG. Plan US pending results.Pt agreeable to plan Urinary symptoms 7205418 08 R39.9 Vaginal bleeding 4980079 06 N93.9 Health Concerns Section Related Observation LastModified by Organization Detai ls LastModified Time None Recorded Concern Status LastModified by Organization Details LastModified Time None Recorded Advance Directives Directive None Recorded Payers Insurance Date Sequence Insurance Name Policy Number Policy Cortez Covered Member ID Cortez Member ID Guarantor Name 04/29/2024 2 [place] [employer] Deandreremingtonbrody Hutchisond [id number] Jasonbrody Constantin 05/24/2025 2 [place] [facility] Deandreremingtonbrody Constantin [id number] Jasonbrody Constantin 05/24/2025 1 [employer] [id number] Jasonbrody Constantin [id number] Jasonbrody Constantin Notes Date Note Type Note Provider Name and Address Organization Details Recorded Time 02/15/2025 text/html Lower Urinary Tr act Symptoms [...] would like a UPT. RENETTA DWYER, JASON [facility] [place], [address], [facility] - [employer] IV 02/15/2025 14:50:26 02/23/2025 text/html Mauricio is here fo r vaginal problemspatient c/o last night a bloody string came out the vaginapatient states she was tested pos upt on 02/15/2025patient state she was dx with UTI/BV was given marobid and metronidiazole cream and tablet Donna Mayorga CNM [facility] [place], [address], [facility] [employer] IV 02/23/2025 15:21:24 03/11/2025 text/html Mauricio is a 34 y/ o female. Pt is here for positive test. Pt c/o nausea and wants to know if she could get a higher dosage on the zofran. Pt is currently taken 4 mg. No other concerns ISABEL NAYAK, CICI- [address] [place], [address], [facility] [employer] IV 03/11/2025 15:32:59 05/24/2025 text/html Mauricio is here fo r confirmation pregnancypatient c/o uti symptoms frequent urinationpatient c/o cramping and spottingpatient c/o taking 2 POS home UPT yesterday Donna Mayorga, [facility] [address] [place], [address], [facility] [employer] IV 05/24/2025 15:22:38 OBGyn Episode Ob Episode Information Episode Created Date Number of Fetuses Patient Bloodtype Patient rh Status Prepregnancy Weight lbs Domestic Partner Domestic Partner Phone Father Name Chopper Feeder Status 01/03/20 1 CLOSED Fetus Data First Name Last Name Admitted to NICU Weight (g) Sex Living Outcome Pediatric Complications Fetus ID Race Codes Race Delivery Type 3175.14 4 Full Term [id number] Sandro Calculation Initial Sandro Date Initial Exam [...] Domestic Partner Domestic Partner Phone Father Name Chopper Feeder Status 01/03/20 23 1 CLOSED Fetus Data First Name Last Name Admitted to NICU Weight (g) Sex Living Outcome Pediatric Complications Fetus ID Race Codes Race Delivery Type 3175.14 4 Full Term [id number] Sandro Calculation Initial Sandro Date Initial Exam [...] Domestic Partner Domestic Partner Phone Father Name Chopper Feeder Status 01/03/20 1 CLOSED Fetus Data First Name Last Name Admitted to NICU Weight (g) Sex Living Outcome Pediatric Complications Fetus ID Race Codes Race Delivery Type 3175.14 4 Full Term [id number] Sandro Calculation Initial Sandro Date Initial Exam [...] Domestic Partner Domestic Partner Phone Father Name Chopper Feeder Status 01/03/20 1 Positive CLOSED Fetus Data First Name Last Name Admitted to NICU Weight (g) Sex Living Outcome Pediatric Complications Fetus ID Race Codes Race Delivery Type Sivakumar ulrich 3657.08 55 M [id number] [id number] Black or Afric an Ameri can Problems Problem Notes 02-28-23 anatomy wnl, would l lizzy [address] [facility] and lap tubal (discussed 05-07-23)at 4 weeks pp and would like IUD as well mirena as well and she had this in the past, 06-18-23 at [facility] at 0600 Problem Name Start Date End Date Resolution Snomed Code Not e Rubella non-immune 852248729 M MR PP Anemia 588947183 hgb=9.1 04-12-23 and mcv 83 and on 5-5 was 8.8 and mcv 77 and cont with iron 01/03/2023 48914296 B+/RnonI/ NRx3 low risk male Sandro Calculation [...] Days Gestation 0 swallerdavis 01/03/2023 023 0 Pre-koko Flowsheet Flowsheet Date 01/03/2023 Jaimes Score Blood Edema Fundus Height Fundus Units Glucose Ketones Leukocytes Nitrite Labor Signs Protein Cervic Dilation Cervic Effacement Cervic Station none Type Weight in lbs Pre/Post Dialysis Refused With clothes 140.425234508968 BP Diastolic BP Location Tested BP Systolic [...] in lbs Pre/Post Dialysis Refused With clothes 149.103747725774 BP Diastolic BP Location Tested BP Systolic BP Type 64 118 sitting Fetus Heart Rate Present A 145 Fetus Movement A Yes Comments Good FM, no LOF no VB, seen at [facility], Labs done 11/13/2022 , B+, ABS neg, [...] in lbs Pre/Post Dialysis Refused With clothes 156.00023723458 BP Diastolic BP Location Tested BP Systolic [...] in lbs Pre/Post Dialysis Refused With clothes 158.264001948486 BP Diastolic BP Location Tested BP Systolic [...] for anemia F/UDesire IOL after 39 week [facility] criteria for BPP 06/18. Flowsheet Date 05/07/2023 Jaimes Score Blood Edema Fundus Height Fundus Units Glucose Ketones Leukocytes Nitrite Labor Signs Protein Cervic Dilation Cervic Effacement Cervic Station 1+ 34 Type Weight in lbs Pre/Post Dialysis Refused With clothes 164.611621511243 BP Diastolic BP Location Tested BP Systolic [...] in lbs Pre/Post Dialysis Refused With clothes 163.158065620106 BP Diastolic BP Location Tested BP Systolic [...] in lbs Pre/Post Dialysis Refused With clothes 168.987074852706 BP Diastolic BP Location Tested BP Systolic [...] in lbs Pre/Post Dialysis Refused With clothes 171.067296900580 BP Diastolic BP Location Tested BP Systolic BP Type 70 L arm 102 sitting Fetus Heart Rate Present A 145 Fetus Movement A Yes Comments Patient reports IOL already scheduled for 06/18 at 0600 at [facility]> Would like to start leave tomorrow. Strict labor/pih precautions reviewed. Flowsheet Date 07/17/2023 Jaimes Score Blood Edema Fundus Height Fundus Units Glucose Ketones Leukocytes Nitrite Labor Signs Protein Cervic Dilation Cervic Effacement Cervic Station Type Weight in lbs Pre/Post Dialysis Refused With clothes 152.702796802959 BP Diastolic BP Location Tested BP Systolic BP Type 76 106 Fetus Heart Rate Present Fetus Movement Comments Flowsheet Date 08/08/2023 Jaimes Score Blood Edema Fundus Height Fundus Units Glucose Ketones Leukocytes Nitrite Labor Signs Protein Cervic Dilation Cervic Effacement Cervic Station Type Weight in lbs Pre/Post Dialysis Refused With clothes 152.741209546947 BP Diastolic BP Location Tested BP Systolic [...] Disease false Other Infection History false Thalassemia (English, Lao, Mediterranean, Or Background): MCV < 80 false [...] false History of Hepatitis false Jer-Sachs (eg, Roman Catholic, Cajun, Angolan-Pender) f alse History Of STD, Gonorrhea, Chlamydia, HPV, Syphi lis false Prior GBS-infected child false History of HIV false Personal or Family History o f Neural Tube Defect (Meningomyelocele, Spina Bifida, Or Anencephaly) false Hemophilia Or Other Blood Disorders false Mental Retardation/Autism false Forrest's Chorea false If Yes, Was Person Tested [...] Domestic Partner Domestic Partner Phone Father Name Chopper Feeder Status 05/24/20 25 1 CLOSED Fetus Data First Name Last Name Admitted to NICU Weight (g) Sex Living Outcome Pediatric Complications Fetus ID Race Codes Race Delivery Type , Induced [id number] Sandro Calculation Initial Sandro Date Initial Exam [...] Post Complications Tubal Sterilization Discharge Date Comments 5 Discharge Information Feeding Method Contraceptive Method Maternal HG B and HCT Levels Ob Episode Information Episode Created Date Number of Fetuses Patient Bloodtype Patient rh Status Prepregnancy Weight lbs Domestic Partner Domestic Partner Phone Father Name Chopper Feeder Status 03/11/20 25 1 DELETED Fetus Data First Name Last Name Admitted to NICU Weight (g) Sex Living Outcome Pediatric Complications Fetus ID Race Codes Race Delivery Type [id number] Sandro Calculation Initial Sandro Date Initial Exam [...]
--- OUTSIDE RECORDS SUMMARY | 2025-05-24 16:17 | XMS_ITS | Clinical Summary ---
Author Organization [facility] Address [address] [place] [address] Care Team Providers Care Conservation Science Officer Name Role Phone No, Physician Primary Care Provider [phone] Allergies No known active allergies Medications PNV #[id number] acid-dha 35 mg iron-5 mg iron-1 mg [...] Results Component Value Date RUBELIGG Reactive 11/13/2022 [id number] Nonreactive 11/13/2022 HEPBSAG Nonreactive 11/13/2022 HEPCAB Nonreactive [...] [] 1h GTT: No results found for: [id number] [] CBC: [] Flu vaccine: [] Rhogam (28 wks if Rh neg): [] Tdap vaccine: [] 32 wk ultrasound: [] RSV vaccine (32-36wks): [] GBS (36 wks): No results found for: GBS No results found for: STREPBDNA Counseling: [] Sap Data Architect: [] Circumcision: [] Method of feeding: [] Method of contraception: [] Epidural: [] Route of Delivery: [] Timing of Delivery: [] Childbirth classes 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 Resolved Problems Problem Noted Date Diagnosed Date Resolved Date Supervision of other normal , antepartum 11/27/2022 02/19/2025 Encounters Date Type Department Care Team Description 03/25/2025 Telephone [facility] [address] [facility] Medical Office [address] [place] [address] Marli Cuba, RN No Show NOB from Last 3 Months Immunizations Immunization [...] on file Legal Sex Female 7:09 PM BELT MEASURER Gender Identity Not on file Sexual Orientation [...] g Complications:Premature Rupt ure of Membranes Delivery Location:[facility] 018 Term 37w 2d 3.285 kg (7 lb 3.9 oz) M Vag-S pont Epidur al Y Livin g Complications:Premature Rupt ure of Membranes Delivery Location:[facility] 020 Term 39w 5d 3.175 kg (7 lb) M Vag-S pont None N Livin g Complications:None Delivery Location:[facility] 023 Term 39w 0d 3.658 kg (8 lb 1 oz) M Vag-S pont Livin g 8 9 Delivery Location:[facility] Current Comments G1- 2013 @ 36wk PROM Li ncoln - PP PreE G2- 2017 @ 37wks Jacob- PP PreE G3- 2019 Draden- PP PreE G4- 2023 Lavon - PP PreE Summary Episode Dates Number of Fetuses Estimated Date of Delivery 02/17/2025 - Present (05/24/2025) Unknown Dating Summary Based On [place] Diff Last Menstrual Period on 01/20/2025 10/27/2025 Vitals Pregravid Weight Height TWG (As of 05/24/2025) Pregrav id BMI 71.7 kg (158 lb) [...] 2024 03/23/2021, 02/23/2021 Influenza Vaccine (#1) 2025 3, 08/23/2022, 09/11/2014 DTaP/Tdap/Td Vaccine (3 - Td [...] HEPATITIS C ANTIBODY Routine 11/13/2022 4:13 PM BELT MEASURER Positive test from Last 3 Months or Most Recently Relevant to Health Maintenance Results * Hepatitis C antibody (11/13/2022 4:13 PM BELT MEASURER) Hep C Ab Nonreactive Nonreactive JEAN MEZA [...] revised on 2020. Blood 11/13/2022 4:13 PM BELT MEASURER 11/13/2022 6:39 PM BELT MEASURER us Petros Hutchinson MD LAB MICROBIOLOGY - GENERAL ORDERABLES Final Result JEAN [address] [facility] Department [place] [address] from Last 3 Months or Most Recently Relevant to Health Maintenance Insurance [employer] Address: [address] [place] [address] [employer] PLANS Address: [address] [place] [address] [employer] Address: [facility] [id number] [place] [address] Care Teams Conservation Science Officer Relationship Specialty Start Date End Date No, Physician PCP - General 02/27/17
--- OUTSIDE RECORDS SUMMARY | 2025-05-24 16:17 | XMS_ITS | Clinical Summary ---
Author Organization [facility] Address [address] [place] [address] Care Team Providers Care Wildlife Biology Internship Name Role Phone Unavailable Primary Care Provider Unavailabl e Source Comments [facility],non-owned Affiliates and Associated Physician Practices is amultiple site organization consisting of ambulatory clinics and hospital sitesin [place], [place] and [place]. This disclosure is being madepursuant to the Care Everywhere program and may not contain all information available regarding this patient. Last updated 18.[facility] Allergies No known active allergies Medications * [...] CDT Gender Identity Female 10/18/2017 10:50 PM DENTAL EQUIPMENT INSTALLER AND SERVICER Sexual Orientation Not on file Last Filed [...] 19+ 3-dose series) 2011 PAP SMEAR 2013 HPV VACCINE (1 - 3-dose SCDM series) 2019 COVID-19 VACCINE (1 - 2023-2 5 season) 2024 DEPRESSION SCREENING 11/11/2024 INFLUENZA VACCINE (#1) 2025 2, 09/11/2014 ZOSTER VACCINE (1 of 2) 2042 [...] GLUCOSE CHALLENGE Routine 09/18/2014 2:5 4 PM DENTAL EQUIPMENT INSTALLER AND SERVICER from Last 3 Months or Most Recently Relevant to Health Maintenance Results * GLUCOSE CHALLENGE (09/18/2014 2:54 PM DENTAL EQUIPMENT INSTALLER AND SERVICER) [facility] Glucose Challenge 123 64 - 140 mg/dL 09/18/2014 3:35 PM DENTAL EQUIPMENT INSTALLER AND SERVICER [facility] Blood BLOOD SPECIMEN / Unknown Venipuncture / Unknown 09/18/2014 2:54 PM DENTAL EQUIPMENT INSTALLER AND SERVICER 09/18/2014 3:18 PM DENTAL EQUIPMENT INSTALLER AND SERVICER us Bailey Harvey MD LAB - CHEMISTRY ORDERABLES Final Result [facility] [address] [place] [address] from Last 3 Months or Most Recently Relevant to Health Maintenance Insurance [facility] Advance Directives * Full Code (Latest Code [...]
--- OUTSIDE RECORDS SUMMARY | 2025-05-24 16:18 | XMS_ITS | Clinical Summary ---
Author Organization [facility] Address [facility]ly [facility] [place] [address] Care Team Providers Care Scrap Metal Burner Name Role Phone None, Provider MD Primary [...] Active Problems Problem Noted Date Diagnosed Date ([facility]) 06/23/2023 Pre-eclampsia in period ([facility]) 10/2023 39 weeks gestation of ([facility]) 2022 Comments Yes Encounters Date Type Department Care Team Description 02/23/2025 8:51 AM CDT - 02/23/2025 9:40 AM CDT Emergency [facility] [place] [address] Riley Minor PA-C Vaginal Discharge Discharge Disposition: [...] week 06/19/2023 How often do you attend [facility] or christianity services? More than 4 times per year 06/19/2023 Do you belong to any clubs o r organizations such as orthodoxy groups, unions, fraternal or athletic groups, or [...] and heating? Not hard at all 06/19/2023 [facility] of Occupat ional Health - Occupational Stress [...] place to sleep or slept in a senior care (including now)? No 06/19/2023 Depression Answer Date [...] URINE CLEAN CATCH 02/23/2025 8:57 AM T [facility] COLOR (U) LIGHT YELLOW 02/23/2025 9:10 AM T [facility] TRANSPARENCY CLEAR 02/23/2025 9:10 AM T [facility] SPECIFIC GRAVITY (U) 1.029 1.001 - 1.030 02/23/2025 9:10 AM T [facility] U PH 6.0 5.0 - 9.0 02/23/2025 9:10 AM T [facility] LEUKOCYTES (U) NEGATIVE NEGATIVE 02/23/2025 9:10 AM T [facility] NITRITES NEGATIVE NEGATIVE 02/23/2025 9:10 AM T [facility] PROTEIN RANDOM (U) NEGATIVE <30 MG/DL 02/23/2025 9:10 AM T [facility] GLUCOSE (U) NORMAL NORMAL MG/DL 02/23/2025 9:10 AM T [facility] KETONES MG/DL (U) NEGATIVE NEGATIVE MG/DL 02/23/2025 9:10 AM T [facility] UROBILINOGEN NORMAL NORMAL MG/DL 02/23/2025 9:10 AM T [facility] BILIRUBIN (U) NEGATIVE NEGATIVE MG/DL 02/23/2025 9:10 AM T [facility] BLOOD (U) NEGATIVE NEGATIVE 02/23/2025 9:10 AM T [facility] MUCUS RARE /LPF 02/23/2025 9:10 AM T [facility] WBC/HPF 1 <6 /HPF 02/23/2025 9:10 AM T [facility] RBC/HPF 4 <6 /HPF 02/23/2025 9:10 AM CDT [facility] SQUAMOUS EPITHELIALS FEW /HPF 02/23/2025 9:10 AM CDT [facility] URINE SPECIMEN OBTAINED BY CLEAN CATCH PROCEDURE / Unknown 02/23/2025 8:54 AM CDT us Riley Minor PA-C URINE ORDERABLES Final Resu lt [facility] [address] [place] [address], [place] [phone] * HEPATITIS C ANTIBODY (04/04/2023) HEPATITIS C AB Non-Reacti ve Narrative Resulting Agency Comment us Default History Genericprovider LABORATORY Final Result from Last 3 Months or Most Recently Relevant to Health Maintenance Insurance [facility] Advance Directives * Full Code (Latest Code Status on File) Date Activated Date Inactivated Comments 06/22/2023 6:35 AM 06/23/2023 1:57 PM * Full Code Date Activated Date Inactivated Comments 06/17/2023 6:00 AM 06/19/2023 3:44 PM Care Teams Scrap Metal Burner Relationship Specialty Start Date End Date None, Provider, MD PCP - General UNKNOWN PHYSICIAN SPECIALTY 06/17/23
--- OUTSIDE RECORDS SUMMARY | 2025-05-24 16:18 | XMS_ITS | Continuity of Care Document ---
Author Organization [facility] [employer] [facility], [facility] [place] Address [address] [place] [address] Care Team Providers Care Optical Engineering Manager Name Role Phone [facility] It Data Architect Assessment No assessment recorded. Plan of Treatment Reminders Order Date Submit Date Provider Last Modified By Organization Details Last Modified Time Details Appointments ROOM SERVICE ATTENDANT EST 025 12:15PM Donna Mayorga CNM Not available Not available Not available Lab None record ed. Referral None record ed. Procedures None record ed. Surgeries None record ed. Imaging None record ed. Medication Orders None record ed. Patient TargetsNo targets recorded. Patient InstructionsNo instructions recorded. Reason for Referral None Reported. Problems Name Problem SNOMED Code Status Onset Date Resolution Date Notes Provider Name and Address Organization Details Recorded Time 75890640 Completed 202208/08/2023 B+/Rno nI/NRx 3 low risk male Enmanuel Goncalves null, [facility] 5 14:46:27 96404348 Completed 2022 B+/Rno nI/NRx 3 low risk male Darlin Michael null, [place] [facility] 3 11:10:00 Low back pain in 697258656471 6 Active 2022 Corry Mcmahan MD [address] [place] [address], [phone], [facility] 3 16:50:48 Anemia of 56035698 Active 2022 Corry Mcmahan MD [address] [place], [phone], [facility] 3 12:49:02 Rubella non-immun e 272105893 Completed MMR PP Darlin turner, [facility] IV 3 11:10:00 Anemia 093705303 Completed hgb=9. 1 6-2-23 and mcv 83 and on 5-5 was 8.8 and mcv 77 and cont with iron Darlin turner, [facility] 3 11:10:00 Problem Notes None recorded. Procedures Surgical History Date Name Laterality Status Provider Name and Address Organization Details Recorded Time 5 Colposcopy - Cervix cancelled Sylvia [facility] 11/02/2024 16:30:31 4 Colposcopy - Cervix cancelled [facility] 10/20/2024 12:44:46 4 IUD Removal completed MARIANNE HYLTON [address] [place] [address], [phone], [facility] 10/19/2024 15:08:58 4 Date of Last Pap Smear completed JASON RAND [address] [place] [address], [phone], [facility] 09/28/2024 14:37:01 4 IUD Exchange cancelled Caterina Dickson [facility] 01/17/2024 12:18:19 3 IUD Insertion completed Holly Samuels CNM [address] [place] [address], [phone], [facility] 08/08/2023 12:13:21 Imaging Results None recorded. [...] Available Not Available Not Available amoxicillin 875 mg-potchristopherricardou m clavulanate 125 mg tablet TAKE 1 [...] Updated DateTime 05/24/2025 160.02 cm 26.5 kg/m2 57375.42 g 120/70 mm[Hg] Ying Chin [facility] 05/24/2025 13:21:52 Social History Question Answer Notes LastModified by Organizat ion Details LastModified Time Tobacco Smoking Status Never Smoker Machelle turner, [facility] 12/06/2022 10:16:15 Are You Blind Or Do You Have Difficulty Seeing? No Information not available 01/03/2023 Are You Deaf Or Do You Have Serious Difficulty Hearing? No Information not available 01/03/2023 What Type Of Diet Are You Following? REGULAR Information not available 12/06/2022 How Many Children Do You Have? 4 madi Information not available 09/15/2024 What Is Your Relationship Status? Single Information not available 12/06/2022 Are You Sexually Active? Yes [email or web address] Information not available 09/15/2024 Sex: Female Functional [...] available 05/07/2023 What is your occupation? 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 Home Information not available 05/07/2023 Do [...] Colon Cancer N Cytomegalovirus N Hyperthyroidism N MRSA N Blood Transfusion N Herpes (HSV) N Breast Cancer N Lung Cancer N Hypothyroidism N Depression [...] SNOMED-CT Code Diagnosis ICD10 Code Diagnosis Note [id number] Donna Mayorga CNM [facility] [address] [address] 05/24/2025 12:55:52 05/24/2025 15:43:02 [id number] Donna Mayorga CNM [facility] [address] [address] 05/24/2025 13:00:14 05/24/2025 14:03:43 Missed period 78611393 N92.6 Pt had terminatio n in March and has not had any significan t cycle bleeding since then. Had positive HPT twice. UPT in the office negative today. Will obtain hCG level and follow.POC pending hCG results.Di scussed in detail w/pt. F/u on Sat for repeat hCG. Plan US pending results.Pt agreeable to plan Urinary symptoms 6301144 08 R39.9 Vaginal bleeding 5716598 06 N93.9 Health Concerns Section Related Observation LastModified by Organization Detai ls LastModified Time None Recorded Concern Status LastModified by Organization Details LastModified Time None Recorded Payers Encounter Date Sequence Insurance Name Policy Number Policy Cortez Covered Member ID Cortez Member ID Guarantor Name 05/24/2025 1 [employer] [id number] Mauricio Killian [id number] Mauricio Killian 05/24/2025 2 [place] [facility] Mauricio Killian [id number] Mauricio Killian Notes Date Note Type Note Provider Name and Address Organization Details Recorded Time 05/24/2025 text/html Mauricio mason here fo r confirmation pregnancypatient c/o uti symptoms frequent urinationpatient c/o cramping and spottingpatient c/o taking 2 POS home UPT yesterday Donna Mayorga, ROLANDO [address] [facility], [place], [address], [facility] 05/24/2025 15:22:38 OBGyn Episode No OBEpisode recorded.
--- OUTSIDE RECORDS SUMMARY | 2025-05-24 16:18 | XMS_ITS | Referral Summary ---
Author Organization [facility] Address [address] [place] [address] Care Team Providers Care Assistant Account Executive Name Role Phone No, Physician Primary Care Provider [phone] Encounters Date Type Department Care Team Description 03/25/2025 Telephone [facility] [address] [facility] [address] [place] [address] Marli Cuba, RN No Show NOB from Last 3 Months Allergies No known active allergies Medications PNV #[id number] acid-dha 35 mg iron-5 mg iron-1 mg [...] Results Component Value Date RUBELIGG Reactive 11/13/2022 [id number] Nonreactive 11/13/2022 HEPBSAG Nonreactive 11/13/2022 HEPCAB Nonreactive [...] [] 1h GTT: No results found for: [id number] [] CBC: [] Flu vaccine: [] Rhogam (28 wks if Rh neg): [] Tdap vaccine: [] 32 wk ultrasound: [] RSV vaccine (32-36wks): [] GBS (36 wks): No results found for: GBS No results found for: STREPBDNA Counseling: [] Crate Repairer: [] Circumcision: [] Method of feeding: [] [...] on file Legal Sex Female 7:09 PM HEEL TOP LIFT SPLITTER Gender Identity Not on file Sexual Orientation [...] HEPATITIS C ANTIBODY Routine 11/13/2022 4:13 PM HEEL TOP LIFT SPLITTER Positive test from Last 3 Months or Most Recently Relevant to Health Maintenance Results * Hepatitis C antibody (11/13/2022 4:13 PM HEEL TOP LIFT SPLITTER) Hep C Ab Nonreactive Nonreactive JEAN MEZA [...] revised on 2020. Blood 11/13/2022 4:13 PM HEEL TOP LIFT SPLITTER 11/13/2022 6:39 PM HEEL TOP LIFT SPLITTER us Petros Hutchinson MD LAB MICROBIOLOGY - GENERAL ORDERABLES Final Result JEAN MEZA [address] [place] [address] from Last 3 Months or Most Recently Relevant to Health Maintenance Insurance [employer] [facility] [employer] Address: [facility] [address] [place] [address] [employer] [facility] [employer] Address: [facility] [address] [place] [address] [facility] Care Teams Assistant Account Executive Relationship Specialty Start Date End Date No, Physician PCP - General 02/27/17
[2025-05-24 17:35] LABS: Beta HCG Quantitative 7.62 mIU/ML
== END 2025-05-24 16:14 | disposition home or self-care (01) ==
LOC: ANHLAB 16:15
PROVIDERS: PCP Student in an Organized Health Care Education/Training Program; Visit Provider Student in an Organized Health Care Education/Training Program
DX: N91.2 Amenorrhea, unspecified (principal)
CPT/HCPCS: 36415; 84702